=== PATIENT | female | born 1955 | race Caucasian/White ===

== ENCOUNTER 2018-11-07 20:17 | Inpatient (IN) ==
--- NOTE | 2018-11-07 20:49 | Podiatry Consult Note ---
Date of Encounter: 11/07/18 Time of Encounter: 21:00 Assessment and Plan (1) Gas gangrene Current visit: No Status: Acute I had a thorough review with the patient regarding her condition, my findings and recommendations for treatment. we discussed the infection present with gas gangrene, abscess and foreign body and emergent need for surgical intervention to try to salvage her foot. she will require incision and drainage, partial right foot amputation, removal of the foreign body. no guarantees were made that she would not lose more of her foot or her leg. she understood she will likely require return trips to the operating room and this is a staged procedure. nature of the procedure, risks vs benefits potential complications and consequences of surgery and her condition discussed at length including but not limited to infection, bleeding, swelling, numbness, tingling, heart attack, blood clot, pulmonary embolism, heart attack, sepsis, , loss of functionality, wound healing problems, persistent or worsening infection, loss of leg or more of foot, retained foreign body, need for further surgery etc. all questions were answered and the informed consent was signed. 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 (2) Foreign body (FB) in soft tissue Current visit: No Status: Acute plan for removal of foreign body. update tetanus (3) Abscess of right foot Current visit: No Status: Acute going for incision and drainage. History of Present Illness HPI: Ms. Rodríguez is a 63 year old diabetic female transferred from [facility] admitted to the hospitalist with gas forming right foot diabetic foot infection/gas gangrene/abscess and possible foreign body identified on CT. She does not know how long the wound on the right foot has been present. She does not know how long her foot has been red exactly but says a long time. She does not recall stepping on anything. She had drainage on her sock and her family made her come to the ER. She denies feeling like she had a fever, chills, nausea, vomiting, shortness of breath or chest pain. Patient has neuropathy at baseline and cannot feel her foot and says it does not hurt. Past Med Surg Social Fam HX - Past Medical History Medical history: arthritis, asthma, diabetes, hypertension Psychiatric history: no psych history - Social History Smoking Status: Never smoker Smokeless Tobacco Status: No Alcohol use: none Drug use: none Medications and Allergies Albuterol Sulfate [Albuterol Inhaler] 2 puff IH QID 2 Days inhaler 08/29/15 [Rx] Albuterol Sulfate [Proair Respiclick] 90 mcg IH PRN PRN 08/29/15 [History] Allopurinol [Zyloprim 100 MG] 100 mg PO TID 08/29/15 [History] Atorvastatin [Lipitor] 10 mg PO HS 08/29/15 [History] Furosemide [Lasix] 40 mg PO PRN PRN 08/29/15 [History] Gabapentin [Neurontin] 800 mg PO TID 08/29/15 [History] Lisinopril [Zestril] 10 mg PO DAILY 08/29/15 [History] metFORMIN [Glucophage] 500 mg PO TID 08/29/15 [History] Allergy/AdvReac Type Severity Reaction Status Date / Time No Known Allergies Allergy Verified 08/29/15 10:31 All Systems Reviewed: The remainder of the systems were reviewed and are negative - Constitutional Constitutional: no fever(s) - Cardiovascular Cardiovascular: no chest pain, no dyspnea - Respiratory Respiratory: no dyspnea - Musculoskeletal Musculoskeletal: numbness Physical Exam - Constitutional General appearance: no acute distress - Ankle & Foot Exam: well developed and nourished female in no acute distressm, AO x 3 right foot has moderate edema with purulent drainage expressed from the right lateral foot wound on the plantar foot with necrosis measuring 4.5cmx4.3cm. there is erythema and fluctuance. animal hair is present on the wound, foul odor, cyanosis of the 5th digit, there is crepitus present. no pain with calf squeeze. no ascending lymphangitis. erythema does extend past the ankle. CFT intact to digits, non-palpable DP pulse. no pain with calf squeeze. no pain with palpation of the lateral foot abscess area. non-labored respirations. CT-subq gas, abscess, foreign body Results - Labs Labs: All other labs normal.
[2018-11-07] MEDS ORDERED: Naloxone 0.4 MG/ML INJ IVP PRN (21:55)
[2018-11-07] MEDS ORDERED: OXYCODONE Oral CONC 10 MG/0.5 ML ORAL.SYG SL PRN ×2 (21:55)
[2018-11-07] MEDS ORDERED: *HR* Dextrose 50 % in Water (Syg) 50 ML SYRINGE IVP PRN (21:57)
[2018-11-07] MEDS ORDERED: D5% in Water 1,000 ML IVC PRN (21:57)
[2018-11-07] MEDS ORDERED: Dextrose Gel 15 GM/37.5 ML TUBE PO PRN ×2 (21:57)
--- NOTE | 2018-11-07 22:14 | Internal Med History&Physical ---
Date of Encounter: 11/07/18 Time of Encounter: 22:11 Internal Medicine - H&P: HPI Chief complaint: Foot wound Admitted From: Emergency Dept Plans for Post Hospital Care: Home History of present illness: Ms. Rodríguez is a 63 year old female with history of diabetes who presents with foot wound. Patient states that she has been feeling well recently and earlier today her significant other told her that she had a bad wound on her foot. Patient states that her feet are numb from diabetes and she did not know about this wound. She does not know how long is been there. She does not remember any specific injury. She states she feels well overall. She denies any fever, chills, leg pain, foot pain. Discussed with patient who wishes to be full code. Past Med Surg Social Fam HX - Past Medical History Medical history: arthritis, asthma, diabetes, hypertension Psychiatric history: no psych history - Past Surgical History Surgical History: non-contributory - Social History Smoking Status: Never smoker Smokeless Tobacco Status: No Alcohol use: none Drug use: none - Additional Family History Additional family history: Patient reports significant family history of diabetes in her mother and brother. Internal Medicine - H&P: Meds Albuterol Sulfate [Albuterol Inhaler] 2 puff IH QID 2 Days inhaler 08/29/15 [Rx] Albuterol Sulfate [Proair Respiclick] 90 mcg IH PRN PRN 08/29/15 [History] Allopurinol [Zyloprim 100 MG] 100 mg PO TID 08/29/15 [History] Atorvastatin [Lipitor] 10 mg PO HS 08/29/15 [History] Furosemide [Lasix] 40 mg PO PRN PRN 08/29/15 [History] Gabapentin [Neurontin] 800 mg PO TID 08/29/15 [History] Lisinopril [Zestril] 10 mg PO DAILY 08/29/15 [History] metFORMIN [Glucophage] 500 mg PO TID 08/29/15 [History] Allergy/AdvReac Type Severity Reaction Status Date / Time No Known Allergies Allergy Verified 08/29/15 10:31 All Systems PM: A 10-system review of systems was performed and is negative for pertinent findings except as documented above in the HPI. Review of systems: 10 point review of systems was obtained and negative other than stated below: - Constitutional Constitutional: no chills, no fever(s) - Cardiovascular Cardiovascular ROS IM: no chest pain - Respiratory Respiratory: no cough, no dyspnea - Gastrointestinal Gastrointestinal: no abdominal pain, no diarrhea, no nausea, no vomiting - Integumentary Integumentary IM: non-healing lesions, sores - Constitutional Vitals: Temp Pulse Resp BP Pulse Ox 99.4 F 108 15 104/46 92 11/07/18 22:03 11/07/18 22:03 11/07/18 22:03 11/07/18 22:03 11/07/18 22:03 General appearance: Present: A&O X 3, pleasant, no acute distress Exam: . - Head Head exam: Present: atraumatic, normal inspection, normocephalic - Eye Eye exam: Present: EOMI, PERRL - ENT ENT exam: Present: mucous membranes moist, normal oropharynx - Neck Neck exam general surgery: Present: full ROM. Absent: tenderness - Respiratory Respiratory exam: Present: CTAB. Absent: rales, rhonchi, wheezes - Cardiovascular Cardiovascular exam: Present: RRR. Absent: gallop, rubs, systolic murmur - GI/Abdominal GI/Abdominal exam: Present: normal bowel sounds, soft. Absent: distended, tenderness - Extremities Exam Extremities exam: Absent: calf tenderness, pedal edema, tenderness Additional comments: Right lower extremity has bulky dressing applied to right foot area dressing is clean dry and intact however followed her is noted through the dressing. She has mild erythema approximately 3 inches above the dressing that is nontender. No other areas of drainage is noted. - Neurological Exam Neurological exam: Present: alert, CN II-XII intact, oriented X3, no focal deficits - Assessment and Plan (1) Foot ulcer due to secondary DM Current Visit: No Status: Acute Assessment and plan: Patient has large foot wound secondary to diabetes which is been present for an unknown amount of time. CT performed showed diffuse subcutaneous edema throughout the soft tissues with ulceration and subcutaneous gas. No obvious evidence of osteomyelitis however infectious changes are noted to extend down to the bone of the fifth metatarsal head. Start vancomycin, Zosyn, as well as clindamycin for gas formation. Podiatry is been consulted and plan to take the patient to the OR this evening. (2) Cellulitis Current Visit: No Status: Acute Assessment and plan: Secondary to diabetic foot wound as above. Continue antibiotics. Qualifiers: Site of cellulitis: extremity Site of cellulitis of extremity: lower extre mity Laterality: right Qualified Code(s): L03.115 - Cellulitis of right lower limb (3) Gas gangrene Current Visit: No Status: Acute Assessment and plan: Secondary to diabetic foot wound as discussed above. Continue vancomycin, Zosyn, add clindamycin for gas formation and antitoxin effect. (4) Hypertension Current Visit: Yes Status: Acute Assessment and plan: Blood pressure stable at this time. Restart home medications unable to take by mouth meds. Qualifiers: Hypertension type: essential hypertension Qualified Code(s): I10 - Essential (primary) hypertension (5) Gout Current Visit: Yes Status: Acute Assessment and plan: No evidence of acute gout attack at this time. Restart allopurinol when able to take PO medications. Qualifiers: Gout site: unspecified site Gout etiology: unspecified cause Chronicity: unspecified Qualified Code(s): M10.9 - Gout, unspecified (6) DVT prophylaxis Current Visit: Yes Status: Acute Assessment and plan: Heparin 5000 units subcutaneous twice a day - Time Spent With Patient Total time spent is greater than 50% in coordination of care (as documented) at patient's floor/unit and/or counseling patient:
--- NOTE | 2018-11-07 22:28 | Anesthesia Evaluation PreOp ---
Date of Encounter: 11/07/18 Time of Encounter: 22:30 - Past History Planned Operation: Rt Foot Incision and Drainage Cardiac History: HTN, Hyperlipidemia, Other (Anemia chronic disease) Pulmonary History: Asthma SNACK STEWARD History: Other (Diabetic Neuropathy) Other Medical History: Diabetes Type II Anesthesia History: No Prior Anesthetic Complications : No Alcohol Use: none Drug use: none Medications and Allergies Albuterol Sulfate [Albuterol Inhaler] 2 puff IH QID 2 Days inhaler 08/29/15 [Rx] Albuterol Sulfate [Proair Respiclick] 90 mcg IH PRN PRN 08/29/15 [History] Allopurinol [Zyloprim 100 MG] 100 mg PO TID 08/29/15 [History] Atorvastatin [Lipitor] 10 mg PO HS 08/29/15 [History] Furosemide [Lasix] 40 mg PO PRN PRN 08/29/15 [History] Gabapentin [Neurontin] 800 mg PO TID 08/29/15 [History] Lisinopril [Zestril] 10 mg PO DAILY 08/29/15 [History] metFORMIN [Glucophage] 500 mg PO TID 08/29/15 [History] Allergy/AdvReac Type Severity Reaction Status Date / Time No Known Allergies Allergy Verified 08/29/15 10:31 - Meds/Allergy Pre-op Review Medications Reviewed: Yes Allergies Reviewed: Yes Beta Blockers on Current Med List: No Anesthesia Results - Labs Laboratory Tests 11/07/18 11/07/18 18:39 18:39 Hgb 8.9 L Hct 28.1 L Plt Count 343 Sodium 135 L Potassium 4.2 BUN 10 Creatinine 0.67 - Imaging EKG: report reviewed (Sinus Tach) Anesthesia Exam O2 Sat Height 1.65 m Weight 107 kg O2 Sat by Pulse Oximetry 92 Vital Signs Temp Pulse Resp BP Pulse Ox 99.4 F 108 15 104/46 92 11/07/18 22:03 11/07/18 22:03 11/07/18 22:03 11/07/18 22:03 11/07/18 22:03 Height: 5'5 Weight: 235 lbs NPO (# of Hours): MN Pain Scale: 0 - HEENT Pupil (Motor): Pupils equal, EOMI Mallampati: III Oral Opening: Less than or equal to 3 - SNACK STEWARD LOC: Oriented SNACK STEWARD Motor: Normal RUE, Normal LUE, Normal RLE, Normal LLE, Normal Face SNACK STEWARD Sensory: Normal: RUE, LUE, LLE, Face, Deficit: RLE (paresthesia) - Cardiac Rhythm: Regular Murmur: None JVD: No Carotid Bruit: No - Pulmonary Breath Sounds: bilateral Clear Respiratory Effort: Symmetrical Anesthesia Assess/Plan ASA Score: 3 (HTN DM Neuropathic) Level of consciousness: Cooperative, Oriented Anesthetic Plan: MAC Autologous Blood: No Monitoring Plan: Standard Monitors Recovery Plan: Other (Discussed MAC, possible GA, agrees to proceed)
[2018-11-07] MEDS ORDERED: *HR* FentaNYL (PF) 100 MCG/2 ML VIAL ONE (22:40)
[2018-11-07] MEDS ORDERED: *HR* Propofol 200 MG/20 ML VIAL IVP ONE (22:40)
[2018-11-07] MEDS ORDERED: Acetaminophen IV 1,000 MG/100 ML INFUS..BTL ONE (22:42)
[2018-11-07] MEDS ORDERED: Famotidine 20 MG/2 ML VIAL ONE (22:42)
[2018-11-07] MEDS ORDERED: Lidocaine/EPI 1:100k 1% 50 ML VIAL ONE (22:47)
[2018-11-07] MEDS ORDERED: Vancomycin 1,000 MG VIAL ONE ×2 (22:47→23:20)
--- NOTE | 2018-11-07 23:10 | Operative Note ---
Date of procedure: 11/07/18 Pre-op diagnosis: right foot gas gangrene, abscess, foreign body Post-op diagnosis: same Procedure: right partial 5th ray amputation, incision and drainage, removal of foreign body Implants: none Complications: none Anesthesia: MAC Local Anesthetics: 1% Lidocaine HCL SubQ (cc) Surgeon: Theodore Munoz Was there an parts room assistant present: No Estimated blood loss (cc): 20 Specimen: R foot soft tissue-micro, R 5th ray bone-micro and path, foreign body- path Condition: stable Disposition: PACU Procedure in Detail: Indications: 63-year-old female with diabetes and neuropathy transferred from [facility] with right foot gas gangrene and cellulitis past the ankle. Patient has abscess and foreign body plantar foot as well as plantar lateral foot ulceration (4.5cmx4.3cm) with purulent drainage. Patient being brought emergently to the operating room for the above procedures after discussing the nature of the procedure, risks versus benefits potential complications consequences of surgery and her condition at length. No guarantees were made that she would keep her limb and it was clearly explained to her that she is high risk for limb loss. It was also explained to the patient that she could require return trips to the operating room and may lose more of her foot or other toes due to the infection. All of her questions have been answered and informed consent was signed patient was taken from the preoperative holding area into the operating room placed on the operating room table in the supine position. 1% lidocaine plain was injected into the patient's right foot. Right foot was scrubbed prepped and draped in the usual sterile fashion following procedure began. Tourniquet was applied but not inflated during the entire procedure. Incision and drainage right foot. Attention was directed to the plantar lateral aspect of the patient's right foot where a #15 blade was used to make an incision through the eschar area and purulent drainage came flowing out of the plantar vault of the foot. The plantar eschar was excised, necrotic and devitalized tissue was present and excised. Soft tissue was sent to microbiology. Purulent drainage was expressed. The pulse levage with vancomycin was used to irrigate the area. Right partial fifth ray amputation. Purulent drainage was surrounding the fifth metatarsal bone and the fifth toe had cyanosis and dying tissue. The decision was made to proceed with partial fifth ray amputation and incision was made on the dorsal lateral aspect of the patient's right foot fourth full-thickness down to the level of the fifth metatarsal bone. The sagittal saw was used to cut the metatarsal bone and amputate the fifth ray partially and specimen of bone was sent to microbiology and pathology. The speciment sent to microbiology was the proximal most portion of the amputated metatarsal margin. There was bleeding bone at the end of the amputation site. The pulse lavage was utilized with vancomycin to irrigate the area. All bleeders were ligated using the Bovie. There was no further devitalized tissue felt to be present. No further purulence could be expressed. Removal of foreign body. With the fifth ray removed blunt dissection was carried out into the tissue of the interspace and foreign body was identified and excised. The foreign body had the appearance of popcorn kernel. Postoperative bandage included iodoform packing 4 x 4 gauze and ABD Kerlix and an Fish wrap. Patient tolerated the anesthesia and the procedure well escorted the recovery room vital signs stable and vascular status intact by capillary refill time less than 3 seconds to the remaining digits of the right foot. Patient will return to floor where she will continue IV antibiotics.
[2018-11-07] MEDS ORDERED: Lidocaine -MPF 2% 2 ML VIAL ONE (23:38)
[2018-11-07] MEDS ORDERED: Ondansetron 4 MG/2 ML VIAL ONE (23:50)
[2018-11-08] MEDS ORDERED: Piperacillin/Tazobactam 3.375 GM in 0.9 % Sodium Chloride Mini Bag 100 ML IVPB SCH
[2018-11-08] MEDS ORDERED: Clindamycin 900 MG/50 ML 900 MG/50 ML IV.SOLN IVPB SCH
[2018-11-08] MEDS ORDERED: Naloxone 0.4 MG/ML INJ IVP PRN (01:09)
[2018-11-08] MEDS ORDERED: Dextrose Gel 15 GM/37.5 ML TUBE PO PRN ×4 (01:09→04:33)
[2018-11-08] MEDS ORDERED: D5% in Water 1,000 ML IVC PRN ×2 (01:09→04:33)
[2018-11-08] MEDS ORDERED: OXYCODONE Oral CONC 10 MG/0.5 ML ORAL.SYG SL PRN (01:09)
[2018-11-08] MEDS ORDERED: *HR* Dextrose 50 % in Water (Syg) 50 ML SYRINGE IVP PRN ×2 (01:09→04:33)
[2018-11-08] MEDS ORDERED: Insulin LISPRO 300 UNITS/3 ML VIAL SQ SCH ×2 (06:00)
[2018-11-08] MEDS: *HR* Heparin 5,000 UNIT/ML VIAL SQ SCH ×2 (06:00→18:13)
[2018-11-08] MEDS ORDERED: *HR* Heparin 5,000 UNIT/ML VIAL SQ SCH (06:00)
[2018-11-08 06:42] LABS: Basophils % 0.3 %; Eosinophils # 0.1 K/mcL (0.0-0.6); Eosinophils % 1.6 %; Hematocrit 27.9 % (35.3-44.9); Hemoglobin 8.3 g/dL (11.5-15.4); Immature Granulocytes % 1.6 % (0-4); Lymphocytes # 1.5 K/mcL (0.6-4.6); Lymphocytes % 20.3 %; Mean Corpuscular HGB Conc 29.7 g/dL (31.6-35.5); Mean Corpuscular Hemoglobin 24.6 pg (28.0-33.3); Mean Corpuscular Volume 82.8 fL (83.0-100.0); Mean Platelet Volume 9.4 fL (9.4-12.4); Monocytes # 0.5 K/mcL (0.0-1.3); Monocytes % 6.8 %; Neutrophils # 5.1 K/mcL (1.6-8.9); Platelet Count 320 K/mcL (140-400); Red Blood Count 3.37 M/mcL (3.82-4.97); Red Cell Distribution Width 15.7 % (11.5-14.5); Segmented Neutrophils % 69.4 %; White Blood Count 7.3 K/mcL (4.3-11.1)
[2018-11-08 07:00] LABS: BUN/Creatinine Ratio 15 (6-26); Blood Urea Nitrogen 8 mg/dL (8-23); Calcium 7.8 mg/dL (8.6-10.3); Carbon Dioxide 27 mEq/L (23-29); Chloride 103 mEq/L (98-107); Glucose 158 mg/dL (70-105); Magnesium 1.5 mg/dL (1.6-2.6); Osmolality,Calculated 282 (280-300); Sodium 135 mEq/L (136-145); eGFR For African Americans > 60 (> 60); eGFR For Non-African Americans > 60 (> 60)
[2018-11-08 07:16] LABS: Platelet Estimate Normal (Normal); Reactive Lymphocytes Present (Not Present)
[2018-11-08] MEDS: Insulin LISPRO 300 UNITS/3 ML VIAL SQ SCH ×4 (09:06→21:40)
--- NOTE | 2018-11-08 09:07 | Internal Med Progress Note ---
Hospitalist Progress Note - Encounter Date of Encounter: 11/08/18 Time of Encounter: 09:06 - Subjective Interval History: Pt states her surgery last night went well, doesn't think there were any problems and she's not having significant pain today. No N/V/D, no CP or SOB. Appetite is good. Asking how long she'll be in hospital. - Exam Vitals: Temp Pulse Resp BP Pulse Ox 98.1 F 104 19 112/64 90 11/08/18 07:14 11/08/18 07:14 11/08/18 07:14 11/08/18 07:14 11/08/18 07:14 Exam: General: NAD, good eye contact, chronically ill appearing, obese Thoracic: Normal breath sounds b/l, no wheezing or crackles Cardio: Normal S1 and S2, regular rate and rhythm Abdomen: Soft, nontender, nondistended. Extremities: Warm, well perfused. Legs large but without edema. R foot extensively bandaged Neuro: Awake, fully oriented. Speech fluent - Summary of Assessment and Plan Summary of Assessment and Plan: Sheryl Rodríguez is a 63 F w hx DM2 c/b severe neuropathy, HTN, gout, obesity, who p/w R foot wound of unknown extent or duration, found on imaging to has gas bubbles, and taken by podiatry for debridement which revealed pus down to the bone, consistent with diabetic foot ulcer complicated by cellulitis, gas gangrene, and osteomyelitis. Diabetic foot ulcer c/b cellulitis, gas gangrene, and osteomyelitis: s/p partial 5th toe amputation on 11/[address] Munoz - Podiatry following, appreciate co-management - ID consult - plan for midline tomorrow if blood cultures negative - follow up intra-op cultures - continue empiric vanc, zosyn, and clinda DM2: uncontrolled, holding orals, use basal and SSI Peripheral neuropathy: 2/2 DM2, home gabapentin 800 tid HTN: home lisinopril 10, lasix 40 prn Gout: home allopurinol 100 Obesity: BMI 39 PPx: sqh FEN: ADA, no MIVF Lines: PIV but will likely need midline Consults: Podiatry, ID Code: Full Dispo: patient requires inpatient eval and management at this time. Anticipate 3-4 days. States strong preference for home health for IV abx rather than SNF Internal Medicine: Result - Labs CBC & Chem 7: 11/08/18 06:22 11/08/18 06:22 Labs: Short CBC 11/08/18 Range/Units 06:22 WBC 7.3 (4.3-11.1) K/mcL Hgb 8.3 L (11.5-15.4) g/dL Hct 27.9 L (35.3-44.9) % Plt Count 320 (140-400) K/mcL Neutrophils # 5.1 (1.6-8.9) K/mcL BMP 11/08/18 06:22 Sodium 135 L Potassium 4.0 Chloride 103 Carbon Dioxide 27 BUN 8 Creatinine 0.53 L Glucose 158 H Calcium 7.8 L Consult Discharge Plan - Plan Referrals: NONE,PCP [Primary Care Provider] -
[2018-11-08] MEDS: Piperacillin/Tazobactam 3.375 GM in 0.9 % Sodium Chloride Mini Bag 100 ML IVPB SCH ×2 (09:08→15:54)
[2018-11-08] MEDS: Clindamycin 900 MG/50 ML 900 MG/50 ML IV.SOLN IVPB SCH ×2 (09:09→15:53)
--- NOTE | 2018-11-08 15:27 | Infectious Disease Consult ---
Infectious Disease-Consult - Encounter Date/Time Date of Encounter: 11/08/18 Time of Encounter: 15:11 - Data of Consult Patient: new to practice Reason for consult: Osteomyelitis Consult date: 11/08/18 Requesting Physician: Nemesio Moss Primary Care Provider: PCP NONE - HPI HPI: Patient is a 63-year-old woman who presented to [facility] on 11/07/2018 as a transfer from [facility] for gas gangrene and foreign body in the soft tissue. We are consulted today for osteomyelitis and antibiotic recommendations. Patient is a 63-year-old woman who is diabetic for over 15 years [id number] presented to outside hospital for wound on her right foot. Patient does not know how she got the wound. Denies any trauma. Denies any animal bites. Denies any insect bite. She noted that she days prior to admis eleanor and it was getting more sore and painful. Patient denied any fevers or chills. Denies any night sweats. Patient does have neuropathy. Patient was evaluated at the outside facility and transferred to [facility] for evaluation workup. Since admission patient has been afebrile. Tachycardic. No tachypnea. Presenting labs revealed normal WBC with normal differential. ESR over 120. BUN 10 creatinine 0.67 and the left acid of 1.1. CT of the foot revealed diffuse subcutaneous edema throughout the treatment soft tissue with ulceration along the plantar and lateral aspect of the foot distally with associated subcutaneous gas extending along the plantar and lateral soft tissue involving the soft tissue of the fifth toe compatible with soft tissue gas. No well- circumscribed drainable collection identified within limits of this exam. A radiopaque density noted along the plantar aspect of the foot measuring 5.5 mm suggesting small foreign body. No definite ostial lysis or suspicious pe riosteal reaction did [address] evidence of osteomyelitis. Patient was taken to surgery by Dr. Santosh wong where she underwent right partial fifth ray amputation, incision and drainage and removal of foreign body. Intra-Op note reveals purulent drainage came flowing out of the plantar vault of the foot. Necrotic and deep vitalized tissue was present and exercise. Intra-Op cultures pending but Gram stain is showing many gram-positive cocci. Patient was started on vancomycin and Zosyn and clindamycin. We were asked to evaluate the patient's make further recommendations. Currently patient sitting up in the bed. She was eating. Denies any complaint. No headache no chest pain or shortness of breath no nausea no vomiting no diarrhea. No urinary symptoms. - ROS Review of Systems: 10 point review of systems done, negative other for what is mentioned in history of present illness - Results CBC & Chem 7: 11/08/18 06:22 11/08/18 06:22 - Exam Vitals: Temp Pulse Resp BP Pulse Ox 99.2 F 99 16 108/70 95 11/08/18 11:22 11/08/18 11:22 11/08/18 11:22 11/08/18 11:22 11/08/18 11:22 Exam: GENERAL: Laying in bed, appears comfortable. HEAD: Normocephalic atraumatic EYES: PERRLA, EOMI, no conjunctival hemorrhage, sclera anicteric ENT: Mucous membranes moist, no oral thrush. Patient has no teeth and is not wearing dentures NECK: Supple. No meningeal signs. No masses LUNGS: Chest expanding symmetrically. Lungs sounds audible both lung pablo. No wheezing, no rhonchi CV: RRR, S1S2, ABDOMEN: Soft, nontender, nondistended. Bowel sounds audible BACK: No CVA tenderness. Normal inspection. No tenderness over the spine EXTREMITY: Adequate perfusion. No joint effusion. Right foot is surgically wrapped SKIN: Normal color. No rash. NEURO: Awake alert oriented 3. No obvious focal deficit PSYCH: Calm and appropriate. No agitation. Albuterol Sulfate [Albuterol Inhaler] 2 puff IH QID 2 Days inhaler 08/29/15 [Rx] Albuterol Sulfate [Proair Respiclick] 90 mcg IH PRN PRN 08/29/15 [History] Allopurinol [Zyloprim 100 MG] 100 mg PO TID 08/29/15 [History] Atorvastatin [Lipitor] 10 mg PO HS 08/29/15 [History] Furosemide [Lasix] 40 mg PO PRN PRN 08/29/15 [History] Gabapentin [Neurontin] 800 mg PO TID 08/29/15 [History] Lisinopril [Zestril] 10 mg PO DAILY 08/29/15 [History] metFORMIN [Glucophage] 500 mg PO TID 08/29/15 [History] Allergy/AdvReac Type Severity Reaction Status Date / Time No Known Allergies Allergy Verified 08/29/15 10:31 - Assessment and Plan (1) Gas gangrene Current Visit: No Status: Acute CT foot 11/07/2018 reveals right subcutaneous gas extending along the plantar lateral soft tissue 11/07/2018: Status post right partial fifth ray amputation, incision and drainage and removal of foreign body Intra-Op there was a lot of purulence devitalized tissue and necrotic tissue Intra-Op cultures pending Patient was started on vancomycin, Zosyn and clindamycin Continue current antibiotic regimen for now. If there is no group A streptococcus I we will de-escalate to just Vanco and Zosyn tomorrow and hopefully tailor antibiotics accordingly after that Monitor kidney function closely Monitor for adverse reaction Goal vancomycin trough 10-15 SNOMED Code(s): 82090369 (2) Diabetes mellitus type 2 in obese Current Visit: Yes Status: Acute SNOMED Code(s): 97900331 (3) Cellulitis Current Visit: No Status: Acute Qualifiers: Site of cellulitis: extremity Site of cellulitis of extremity: lower extremity Laterality: right Qualified Code(s): L03.115 - Cellulitis of right lower limb SNOMED Code(s): 931295024 (4) Foot ulcer due to secondary DM Current Visit: No Status: Acute SNOMED Code(s): 1983577 (5) Foreign body (FB) in soft tissue Current Visit: No Status: Acute SNOMED Code(s): 614284600, 229750166 (6) Abscess of right foot Current Visit: No Status: Acute SNOMED Code(s): 89300359148414292 Past Med Surg Social Fam HX - Past Medical History Medical history: arthritis, asthma, diabetes, hypertension Psychiatric history: no psych history - Past Surgical History Surgical History: non-contributory - Social History Smoking Status: Never smoker Smokeless Tobacco Status: No Alcohol use: none Drug use: none Consult Discharge Plan - Plan Referrals: NONE,PCP [Primary Care Provider] -
[2018-11-08] MEDS: OXYCODONE Oral CONC 10 MG/0.5 ML ORAL.SYG SL PRN ×2 (15:53→21:52)
[2018-11-08] MEDS: Gabapentin 300 MG CAPSULE PO SCH ×2 (15:54→21:52)
--- NOTE | 2018-11-08 17:55 | Electrocardiograph Report ---
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
[2018-11-09] MEDS: Piperacillin/Tazobactam 3.375 GM in 0.9 % Sodium Chloride Mini Bag 100 ML IVPB SCH ×3 (01:15→15:55)
[2018-11-09] MEDS: Clindamycin 900 MG/50 ML 900 MG/50 ML IV.SOLN IVPB SCH ×3 (01:16→15:54)
[2018-11-09 05:27] LABS: Hematocrit 27.4 % (35.3-44.9); Hemoglobin 8.1 g/dL (11.5-15.4); Mean Corpuscular HGB Conc 29.6 g/dL (31.6-35.5); Mean Corpuscular Hemoglobin 24.5 pg (28.0-33.3); Mean Platelet Volume 9.5 fL (9.4-12.4); Platelet Count 375 K/mcL (140-400); Red Cell Distribution Width 15.7 % (11.5-14.5); White Blood Count 8.3 K/mcL (4.3-11.1)
[2018-11-09 05:45] LABS: BUN/Creatinine Ratio 13 (6-26); Blood Urea Nitrogen 8 mg/dL (8-23); C-Reactive Protein 149 mg/L (Less than 10); Calcium 8.3 mg/dL (8.6-10.3); Carbon Dioxide 29 mEq/L (23-29); Chloride 100 mEq/L (98-107); Glucose 198 mg/dL (70-105); Magnesium 1.9 mg/dL (1.6-2.6); Osmolality,Calculated 286 (280-300); Potassium 4.3 mEq/L (3.5-5.1); Sodium 136 mEq/L (136-145); eGFR For African Americans > 60 (> 60); eGFR For Non-African Americans > 60 (> 60)
[2018-11-09] MEDS: *HR* Heparin 5,000 UNIT/ML VIAL SQ SCH ×2 (06:49→18:11)
[2018-11-09] MEDS: Gabapentin 300 MG CAPSULE PO SCH ×3 (09:30→20:40)
[2018-11-09] MEDS: Insulin LISPRO 300 UNITS/3 ML VIAL SQ SCH ×4 (09:33→20:40)
[2018-11-09] MEDS ORDERED: Aminoglycoside Consult 1 EACH MC ONE (09:52)
--- NOTE | 2018-11-09 11:11 | Internal Med Progress Note ---
Hospitalist Progress Note - Encounter Date of Encounter: 11/09/18 Time of Encounter: 11:04 - Subjective Interval History: Pt denies acute needs or concerns. Doing well overnight. Denies N/V/D, has decent appetite. - Exam Vitals: Temp Pulse Resp BP Pulse Ox 98.4 F 91 16 103/61 96 11/09/18 07:08 11/09/18 07:08 11/09/18 07:08 11/09/18 07:08 11/09/18 07:08 Exam: General: NAD, good eye contact, chronically ill appearing, obese Thoracic: Normal breath sounds b/l, no wheezing or crackles Cardio: Normal S1 and S2, regular rate and rhythm Abdomen: Soft, nontender Extremities: Warm, well perfused. Legs large but without edema. R foot extensively bandaged, c/d/i Neuro: Awake, fully oriented. Speech fluent - Summary of Assessment and Plan Summary of Assessment and Plan: Sheryl Rodríguez is a 63 F w hx DM2 c/b severe neuropathy, HTN, gout, obesity, who p/w R foot wound of unknown extent or duration, found on imaging to has gas bubbles, and taken by podiatry for debridement on 11/07 which revealed pus down to the bone, consistent with diabetic foot ulcer complicated by cellulitis, gas gangrene, and osteomyelitis. Diabetic foot ulcer c/b cellulitis, gas gangrene, and osteomyelitis: s/p partial 5th toe amputation on 11/[address] Munoz. Clinically doing well. - Podiatry following, appreciate co-management - ID consult, appreciate abx rec's - continue empiric vanc, zosyn, and clinda for now, can d/c clinda if no group A strep on cultures when GPCs speciate - follow up intra-op cultures - PICC DM2: uncontrolled, holding orals, use basal and SSI Peripheral neuropathy: 2/2 DM2, home gabapentin 800 tid HTN: home lisinopril 10, lasix 40 prn Gout: home allopurinol 100 Obesity: BMI 39 PPx: sqh FEN: ADA, no MIVF Lines: PIV but will request midline/PICC Consults: Podiatry, ID Code: Full Dispo: patient requires inpatient eval and management at this time. Anticipate here over weekend until cultures result and can set up home abx (states strong preference for home health for IV abx rather than SNF) Internal Medicine: Result - Labs CBC & Chem 7: 11/09/18 05:01 11/09/18 05:01 Labs: Short CBC 11/09/18 Range/Units 05:01 WBC 8.3 (4.3-11.1) K/mcL Hgb 8.1 L (11.5-15.4) g/dL Hct 27.4 L (35.3-44.9) % Plt Count 375 (140-400) K/mcL BMP 11/09/18 05:01 Sodium 136 Potassium 4.3 Chloride 100 Carbon Dioxide 29 BUN 8 Creatinine 0.62 Glucose 198 H Calcium 8.3 L Consult Discharge Plan - Plan Referrals: NONE,PCP [Primary Care Provider] -
--- NOTE | 2018-11-09 15:24 | Podiatry Progress Note ---
Date of Encounter: 11/09/18 Time of Encounter: 14:30 - Assessment and Plan (1) Abscess of right foot Current Visit: No Status: Acute Assessment: -Post op day #2 right partial 5th ray amputation, incision and drainage, removal of foreign body by Dr. Munoz on 11/07/2018 -WBC 8.3, afebrile -Non-palpable pulses, cap refill less than 3 seconds -Skin warm from tibia to toes -Movement of toes noted -Intra-op cultures preliminary Strep agalactiae (Group B) and Gram Negative Peyman -Receiving IV antibiotics, ID onboard Plan: -All packing removed and surgical wound flushed thoroughly with sterile normal saline -Painted wound and macerated tissue periwound with betadine -Macerated tissue covered with 4x4 dry gauze -Covered wound with adaptic -Wound vac placed with white granulofoam then black granulofoam, draped with tegaderm is usual fashion with window-pane dressing, bridged to dorsal medial aspect of foot. Tubing off loaded and secured with 4x4s, Kerlix, and ROBERTO. -Good seal noted and suction set at 150 mmHG. -Change wound vac Monday, Monday, and Monday -Nursing staff to call for any questions or concerns Subjective Interval history: Post op day #2 right partial 5th ray amputation, incision and drainage, removal of foreign body by Dr. Munoz on 11/07/2018 Upon my examination patient is sleeping and slow to arouse with verbal stimuli. Initially patient was confused to time and why she was in the hospital but became more alert and oriented during my examination. Patient denies any chest pain, shortness of breath, or calf pain. She denies any fever, chills, n/v/d. Objective - Vital Signs Vital Signs: Vital Signs Temp Pulse Resp BP Pulse Ox 11/09/18 11:12 99.2 F 92 16 100/58 94 11/09/18 07:08 98.4 F 91 16 103/61 96 11/09/18 03:25 97.9 F 101 16 121/71 94 11/08/18 20:12 98.3 F 100 16 92/54 92 11/08/18 16:46 99.0 F 95 19 115/69 92 Intake and Output 11/08/18 11/09/18 11/09/18 23:59 07:59 15:59 Intake Total 454 / 1454 440 / 980 540 / 980 Output Total 0 / 0 Balance 454 / 1434 440 / 980 540 / 980 Intake: IV Fluids 454 / 854 200 / 500 300 / 500 Cleocin Premix 900 MG/50 ML 900 100 / 150 50 / 150 mg In 50 ml @ 50 mls/hr IVPB Q8HR CORIN Rx#:[id number] Magnesium Sulfate 2 GM In 0.9 % 104 / 104 Sodium Chloride 100 ML @ 104 mls/hr IVPB Q1H CORIN Rx#: [id number] Zosyn 3.375 GM In 0.9 % Sodium 100 / 200 100 / 100 Chloride (Mini-Bag +) 100 ML @ 25 mls/hr IVPB Q8HR CORIN Rx#: [id number] Vancocin 1,500 MG In 0.9 % 250 / 500 250 / 250 Sodium Chloride 250 ML @ 167 mls/hr IVPB Q12H CORIN Rx#: [id number] Oral 240 / 480 240 / 480 Output: Urine 0 / 0 Other: Meal Breakfast Percent of Meal Consumed 100% # Voids 2 1 1 Blood Glucose* 186 203 169 - Exam Exam: Constitutional: Patient was slow to arouse but did return to baseline while I was in the room and no acute distress noted Vascular: 5th digit right foot amputated, non-palpable pulses, cap refill less than 3 seconds, no pain with calf squeeze Neurological: Absent protective sensation Dermatological: Surgical wound right lateral plantar aspect of foot with tendon exposed, no lymphangitis, mild expected post operative erythema noted periwound and maceration of tissue noted distal aspect of wound, no unexpected complications noted, no odor, serosanguineous drainage - - Lab Result Diagrams: 11/09/18 05:01 11/09/18 05:01 Labs: Abnormal lab results RBC 3.30 M/mcL (3.82-4.97) L 11/09/18 05:01 Hgb 8.1 g/dL (11.5-15.4) L 11/09/18 05:01 Hct 27.4 % (35.3-44.9) L 11/09/18 05:01 MCV 82.8 fL (83.0-100.0) L 11/08/18 06:22 MCH 24.5 pg (28.0-33.3) L 11/09/18 05:01 MCHC 29.6 g/dL (31.6-35.5) L 11/09/18 05:01 RDW 15.7 % (11.5-14.5) H 11/09/18 05:01 Present (Not Present) A 11/08/18 06:22 ESR >= 130 mm/hr (0-15) H 11/09/18 05:01 Sodium 135 mEq/L (136-145) L 11/08/18 06:22 0.53 mg/dL (0.60-1.20) L 11/08/18 06:22 Glucose 198 mg/dL (70-105) H 11/09/18 05:01 POC Glucose 169 mg/dL (70-99) H 11/09/18 11:17 Calcium 8.3 mg/dL (8.6-10.3) L 11/09/18 05:01 Magnesium 1.5 mg/dL (1.6-2.6) L 11/08/18 06:22 149 mg/L (Less than 10) H 11/09/18 05:01 Vancomycin Trough 12 mcg/mL (5-10) H 11/09/18 05:01 Microbiology, Last 48 Hours 11/08/18 00:15 Surgical Biopsy Culture - Preliminary Right Foot Strep agalactiae - (Group B) Gram Negative Peyman 11/08/18 00:15 Surgical Biopsy Culture - Preliminary Right Foot Gram Negative Peyman 11/08/18 00:17 Anaerobic Culture - Preliminary Right Foot Culture is incubating. 11/08/18 00:15 Anaerobic Culture - Preliminary Right Foot Culture is incubating. Consult Discharge Plan - Plan Referrals: NONE,PCP [Primary Care Provider] -
--- NOTE | 2018-11-09 16:05 | Infectious Disease Progress No ---
ID Progress Note Date of Encounter: 11/09/18 Time of Encounter: 16:03 - Subjective Subjective: Patient seen and examined. Appears comfortable lying in bed. Denies any headache. No chest pain or shortness of breath. No nausea no vomiting. No diarrhea. No urinary symptoms. Foot pain under control. Vital signs reviewed afebrile Labs noted WBC 8.3, creatinine 0.62 Cultures group B streptococcus and a gram-negative luis alfredo final ID pending - Objective CBC & Chem 7: 11/09/18 05:01 11/09/18 05:01 - Exam Vitals: Temp Pulse Resp BP Pulse Ox 98.8 F 97 16 126/72 95 11/09/18 15:36 11/09/18 15:36 11/09/18 15:36 11/09/18 15:36 11/09/18 15:36 Exam: GENERAL: Comfortable. Laying in bed NAD HEENT: CH[place], EOMI LUNGS: Good air sounds bilaterally, no wheezing or rhonchi CV: RRR, S1 S2 ABDOMEN: Soft, nontender, + bowel sounds EXT: Adequate perfusion. No edema. Right foot surgically bandaged. Unable to evaluate. I saw picture from podiatry NEURO: A&OX3; no focal deficit - Assessment and Plan (1) Gas gangrene Current Visit: No Status: Acute CT foot 11/07/2018 reveals right subcutaneous gas extending along the plantar lateral soft tissue 11/07/2018: Status post right partial fifth ray amputation, incision and drainage and removal of foreign body Intra-Op there was a lot of purulence devitalized tissue and necrotic tissue Intra-Op cultures pending Patient was started on vancomycin, Zosyn and clindamycin DC vancomycin and clindamycin. Continue Zosyn Monitor kidney function closely Monitor for adverse reaction Duration of treatment depends on the clinical picture SNOMED Code(s): 67401085 (2) Diabetes mellitus type 2 in obese Current Visit: Yes Status: Acute SNOMED Code(s): 48788852 (3) Cellulitis Current Visit: No Status: Acute Qualifiers: Site of cellulitis: extremity Site of cellulitis of extremity: lower extremity Laterality: right Qualified Code(s): L03.115 - Cellulitis of right lower limb SNOMED Code(s): 363868396 (4) Foot ulcer due to secondary DM Current Visit: No Status: Acute SNOMED Code(s): 9213353 (5) Foreign body (FB) in soft tissue Current Visit: No Status: Acute SNOMED Code(s): 574488530, 202481470 (6) Abscess of right foot Current Visit: No Status: Acute SNOMED Code(s): 29221850760031214 Consult Discharge Plan - Plan Referrals: NONE,PCP [Primary Care Provider] -
[2018-11-10] MEDS: Piperacillin/Tazobactam 3.375 GM in 0.9 % Sodium Chloride Mini Bag 100 ML IVPB SCH ×3 (00:05→16:34)
[2018-11-10] MEDS: *HR* Heparin 5,000 UNIT/ML VIAL SQ SCH ×2 (05:25→16:39)
[2018-11-10 07:58] LABS: Hematocrit 27.8 % (35.3-44.9); Hemoglobin 8.4 g/dL (11.5-15.4); Mean Corpuscular HGB Conc 30.2 g/dL (31.6-35.5); Mean Corpuscular Hemoglobin 24.3 pg (28.0-33.3); Mean Corpuscular Volume 80.3 fL (83.0-100.0); Mean Platelet Volume 9.7 fL (9.4-12.4); Platelet Count 427 K/mcL (140-400); Red Blood Count 3.46 M/mcL (3.82-4.97); Red Cell Distribution Width 15.8 % (11.5-14.5); White Blood Count 6.6 K/mcL (4.3-11.1)
[2018-11-10 08:15] LABS: BUN/Creatinine Ratio 13 (6-26); Blood Urea Nitrogen 7 mg/dL (8-23); Calcium 8.8 mg/dL (8.6-10.3); Carbon Dioxide 31 mEq/L (23-29); Chloride 102 mEq/L (98-107); Glucose 154 mg/dL (70-105); Osmolality,Calculated 283 (280-300); Potassium 4.6 mEq/L (3.5-5.1); Sodium 136 mEq/L (136-145); eGFR For African Americans > 60 (> 60); eGFR For Non-African Americans > 60 (> 60)
[2018-11-10] MEDS: Insulin LISPRO 300 UNITS/3 ML VIAL SQ SCH ×4 (08:46→20:29)
[2018-11-10] MEDS: Gabapentin 300 MG CAPSULE PO SCH ×3 (08:46→20:29)
--- NOTE | 2018-11-10 14:16 | Internal Med Progress Note ---
Hospitalist Progress Note - Encounter Date of Encounter: 11/10/18 Time of Encounter: 14:13 - Subjective Interval History: Patient is a 63 year old with gas gangrene in the right foot, status post debridement and amputation of the toe on 11/07. Seen and examined at the bedside sitting out of bed in the chair, denies new complaints, denies fever or chills. Has been hemodynamically stable in the past 24 hours. Cultures are noted and a preliminary growing Escherichia coli, streptococcal agalactaie - Exam Vitals: Temp Pulse Resp BP Pulse Ox 98.5 F 88 18 118/67 94 11/10/18 11:24 11/10/18 11:24 11/10/18 11:24 11/10/18 11:24 11/10/18 11:24 Exam: General: Sitting up in chair out of bed, not in any form of distress. Thoracic: Normal breath sounds b/l, no wheezing or crackles Cardio: Normal S1 and S2, regular rate and rhythm Abdomen: Soft, nontender Extremities: Warm, well perfused. Legs large but without edema. R foot wound dressing slightly soaked with serosanguineous fluid, wound vac in situ Neuro: Awake, fully oriented. Speech fluent, no focal deficits DVT Prophylaxis: Sq heparin - Summary of Assessment and Plan Summary of Assessment and Plan: Sheryl Rodríguez is a 63 F w hx DM2 c/b severe neuropathy, HTN, gout, obesity, who p/w R foot wound of unknown extent or duration, found on imaging to has gas bubbles, and taken by podiatry for debridement on 11/07 which revealed pus down to the bone, consistent with diabetic foot ulcer complicated by cellulitis, gas gangrene, and osteomyelitis. Resume all home meds today 11/10 Assessment/Plan #Diabetic foot ulcer wit cellulitis, gas gangrene, and osteomyelitis: -s/p partial 5th toe amputation on 11/[address] Munoz. Clinically doing well. - Podiatry following, appreciate co-management - ID consult, appreciate abx rec's - continue empiric zosyn only - duration of treatment pending ID confirmation #DM2: -uncontrolled, A1C 8.0 -holding oral medications -Continue basal insulin and sliding scale #Peripheral neuropathy: 2/2 DM2 -Continue home gabapentin 800 tid # Essential HTN: -Continue home lisinopril 10, lasix 40 prn #Gout: home allopurinol 100 #Obesity: BMI 39 Disposition plan: Home Health when duration of antibiotics is determined - Time Spent with Patient Total time spent is greater than 50% in coordination of care (as documented) at patient's floor/unit and/or counseling patient: Plan of Care Discussed with: patient Internal Medicine: Result - Labs CBC & Chem 7: 11/10/18 06:54 11/10/18 06:54 Labs: Short CBC 11/10/18 Range/Units 06:54 WBC 6.6 (4.3-11.1) K/mcL Hgb 8.4 L (11.5-15.4) g/dL Hct 27.8 L (35.3-44.9) % Plt Count 427 H (140-400) K/mcL BMP 11/10/18 06:54 Sodium 136 Potassium 4.6 Chloride 102 Carbon Dioxide 31 H BUN 7 L Creatinine 0.52 L Glucose 154 H Calcium 8.8 Consult Discharge Plan - Plan Referrals: NONE,PCP [Primary Care Provider] -
[2018-11-10] MEDS ORDERED: clonazePAM 0.5 MG TABLET PO PRN (14:20)
[2018-11-10] MEDS: Furosemide 20 MG TABLET PO SCH (16:39)
[2018-11-11] MEDS: Piperacillin/Tazobactam 3.375 GM in 0.9 % Sodium Chloride Mini Bag 100 ML IVPB SCH ×4 (00:07→23:24)
[2018-11-11] MEDS: *HR* Heparin 5,000 UNIT/ML VIAL SQ SCH ×2 (05:14→20:31)
[2018-11-11 07:37] LABS: Hematocrit 29.4 % (35.3-44.9); Hemoglobin 8.9 g/dL (11.5-15.4); Mean Corpuscular HGB Conc 30.3 g/dL (31.6-35.5); Mean Corpuscular Hemoglobin 24.7 pg (28.0-33.3); Mean Corpuscular Volume 81.7 fL (83.0-100.0); Mean Platelet Volume 9.6 fL (9.4-12.4); Platelet Count 499 K/mcL (140-400); Red Cell Distribution Width 15.6 % (11.5-14.5); White Blood Count 7.9 K/mcL (4.3-11.1)
[2018-11-11 07:56] LABS: BUN/Creatinine Ratio 16 (6-26); Blood Urea Nitrogen 11 mg/dL (8-23); Calcium 9.3 mg/dL (8.6-10.3); Carbon Dioxide 34 mEq/L (23-29); Chloride 99 mEq/L (98-107); Glucose 182 mg/dL (70-105); Osmolality,Calculated 288 (280-300); Potassium 4.7 mEq/L (3.5-5.1); Sodium 137 mEq/L (136-145); eGFR For African Americans > 60 (> 60); eGFR For Non-African Americans > 60 (> 60)
[2018-11-11] MEDS: Gabapentin 300 MG CAPSULE PO SCH ×3 (08:39→20:32)
[2018-11-11] MEDS: Furosemide 20 MG TABLET PO SCH (08:39)
[2018-11-11] MEDS: Insulin LISPRO 300 UNITS/3 ML VIAL SQ SCH ×4 (08:40→20:35)
[2018-11-11] MEDS: Tiotropium 18 MCG inhalation IH SCH (10:43)
--- NOTE | 2018-11-11 12:45 | Internal Med Progress Note ---
Hospitalist Progress Note - Encounter Date of Encounter: 11/11/18 Time of Encounter: 12:38 - Subjective Interval History: Patient is seen and examined at the bedside, no new events today overnight. Final cultures and sensitivities noted, see assessment and plan for details. - Exam Vitals: Temp Pulse Resp BP Pulse Ox 98.3 F 76 19 107/73 94 11/11/18 11:23 11/11/18 11:23 11/11/18 11:23 11/11/18 11:23 11/11/18 11:23 Exam: General: Sitting up in chair out of bed, not in any form of distress. Thoracic: Normal breath sounds b/l, no wheezing or crackles Cardio: Normal S1 and S2, regular rate and rhythm Abdomen: Soft, nontender Extremities: Warm, well perfused. Bilateral pitting edema to the ankles, left foot wound inspected, wound VAC in situ, status post fifth toe amputation, necrotic skin noted, distal pulses are present and equal bilaterally. Neuro: Awake, fully oriented. Speech fluent, no focal deficits DVT Prophylaxis: Sq heparin - Summary of Assessment and Plan Summary of Assessment and Plan: Sheryl Rodríguez is a 63 F w hx DM2 c/b severe neuropathy, HTN, gout, obesity, who p/w R foot wound of unknown extent or duration, found on imaging to has gas bubbles, and taken by podiatry for debridement on 11/07 which revealed pus down to the bone, consistent with diabetic foot ulcer complicated by cellulitis, gas gangrene, and osteomyelitis. Resume all home meds today 11/10 Assessment/Plan #Diabetic foot ulcer wit cellulitis, gas gangrene, and osteomyelitis: -s/p partial 5th toe amputation on 11/[address] Munoz. Clinically doing well. -Podiatry following, appreciate co-management -ID consulted, recommendations noted -Patient was initially on vancomycin and Zosyn, vancomycin discontinued by infectious diseases recommendations -Final culture reports noted for strep agalactiae, Proteus, Escherichia coli, Enterococcus faecalis, enterococcus avium, and Staphylococcus cohnii -Based on sensitivity pattern, add cipro po ro current regimen -PICC placement a.m -Duration of treatment pending ID confirmation #DM2: -uncontrolled, A1C 8.0 -holding oral medications -Continue basal insulin and sliding scale #Peripheral neuropathy: 2/2 DM2 -Continue home gabapentin 800 tid # Essential HTN: -Continue home lisinopril 10, lasix 40 prn #Gout: home allopurinol 100 #Obesity: BMI 39 Disposition plan: Home Health when duration of antibiotics is determined - Time Spent with Patient Total time spent is greater than 50% in coordination of care (as documented) at patient's floor/unit and/or counseling patient: Plan of Care Discussed with: patient Internal Medicine: Result - Labs CBC & Chem 7: 11/11/18 06:26 11/11/18 06:26 Labs: Short CBC 11/11/18 Range/Units 06:26 WBC 7.9 (4.3-11.1) K/mcL Hgb 8.9 L (11.5-15.4) g/dL Hct 29.4 L (35.3-44.9) % Plt Count 499 H (140-400) K/mcL BMP 11/11/18 06:26 Sodium 137 Potassium 4.7 Chloride 99 Carbon Dioxide 34 H BUN 11 Creatinine 0.67 Glucose 182 H Calcium 9.3 Consult Discharge Plan - Plan Referrals: NONE,PCP [Primary Care Provider] -
[2018-11-12] MEDS: *HR* Heparin 5,000 UNIT/ML VIAL SQ SCH ×2 (05:26→17:48)
[2018-11-12] MEDS: Tiotropium 18 MCG inhalation IH SCH (07:39)
[2018-11-12] MEDS: Insulin LISPRO 300 UNITS/3 ML VIAL SQ SCH ×4 (09:41→20:15)
[2018-11-12] MEDS: Piperacillin/Tazobactam 3.375 GM in 0.9 % Sodium Chloride Mini Bag 100 ML IVPB SCH ×3 (09:41→23:23)
[2018-11-12] MEDS: Gabapentin 300 MG CAPSULE PO SCH ×3 (09:42→20:13)
[2018-11-12] MEDS: Furosemide 20 MG TABLET PO SCH (09:43)
[2018-11-12] MEDS: Doxycycline 100 MG in 0.9 % Sodium Chloride Mini Bag 100 ML IVPB SCH ×2 (12:07→17:41)
--- NOTE | 2018-11-12 12:12 | Podiatry Progress Note ---
Date of Encounter: 11/12/18 Time of Encounter: 11:30 - Assessment and Plan (1) Foreign body (FB) in soft tissue Current Visit: No Status: Acute Path reports pending (2) Abscess of right foot Current Visit: No Status: Acute Assessment: -Post op day #5 right partial 5th ray amputation, incision and drainage, removal of foreign body by Dr. Munoz on 11/07/2018 -WBC 7.9, afebrile -Non-palpable pulses, cap refill less than 3 seconds -Skin warm from tibia to toes -Movement of toes noted -Intra-op cultures final Ecoli, Proteus H, Enterococcus F and A and group B strep. -Receiving IV antibiotics, ID onboard Plan: -Wound vac removed at bedside -Painted wound and macerated tissue periwound with betadine -Macerated tissue covered with 4x4 dry gauze -Covered wound with adaptic -Will leave off wound vac today due to profound maceration of tissue. Will plan to replace tomorrow once tissue has dried - Wound vac paperwork filled out and provided to SW - Pending ATB order from ID -SW setting up HHC -Good seal noted and suction set at 150 mmHG. -Change wound vac Monday, Monday, and Monday -Nursing staff to call for any questions or concerns - Will need post operative shoe to bedside prior to discharge (3) Diabetes mellitus type 2 in obese Current Visit: Yes Status: Acute Subjective Interval history: Post op day #5 right partial 5th ray amputation, incision and drainage, removal of foreign body by Dr. Munoz on 11/07/2018 Patient up to chair and then transferred to bed for assessment. Patient tearful and wanting to go home. alert and oriented during my examination. Patient denies any chest pain, shortness of breath, or calf pain. She denies any fever, chills, n/v/d. SW at bedside, discussing HHC. Patient minimally interactive with health care decision making. States she is fine with whatever HHC. Objective - Vital Signs Vital Signs: Vital Signs Temp Pulse Resp BP Pulse Ox 11/12/18 10:09 97.7 F 99 16 131/76 96 11/12/18 07:39 16 91 11/12/18 06:46 98.0 F 78 16 120/68 93 11/12/18 04:48 97.9 F 95 16 130/79 94 11/12/18 00:01 98.1 F 104 16 135/78 91 11/11/18 20:00 98.5 F 98 15 119/71 95 11/11/18 15:14 98.1 F 92 16 142/83 92 Intake and Output 11/11/18 11/12/18 11/12/18 23:59 07:59 15:59 Intake Total 340 / 1740 0 / 240 240 / 240 Output Total 60 / 60 0 / 50 50 / 50 Balance 280 / 1680 0 / 190 190 / 190 Intake: IV Fluids 100 / 300 Zosyn 3.375 GM In 0.9 % Sodium 100 / 300 Chloride (Mini-Bag +) 100 ML @ 25 mls/hr IVPB Q8HR [facility] Rx#: [id number] Oral 240 / 1440 0 / 240 240 / 240 Output: Urine 0 / 0 Wound Drainage 60 / 60 50 / 50 Right Foot 60 / 60 50 / 50 Other: Meal Dinner Breakfast Percent of Meal Consumed 100% 90% Stool Size Small Stool Consistency soft Stool Color Brown # Voids 1 1 1 # Urine Diapers 2 # Bowel Movements 1 Blood Glucose* 240 174 - Exam Exam: Constitutional: awake, alert and oriented. Tearful Vascular: 5th digit right foot amputated, non-palpable pulses, cap refill less than 3 seconds, no pain with calf squeeze Neurological: Absent protective sensation Dermatological: Surgical wound right lateral plantar aspect of foot with tendon exposed, no lymphangitis, mild expected post operative erythema noted periwound and a large amount of maceration of tissue noted distal aspect of wound, plantar aspect of foot, medial aspect of foot and dorsal aspect of foot. mild odor related to maceration. serosanguineous drainage. - Lab Result Diagrams: 11/11/18 06:26 11/11/18 06:26 Labs: Abnormal lab results RBC 3.60 M/mcL (3.82-4.97) L 11/11/18 06:26 Hgb 8.9 g/dL (11.5-15.4) L 11/11/18 06:26 Hct 29.4 % (35.3-44.9) L 11/11/18 06:26 MCV 81.7 fL (83.0-100.0) L 11/11/18 06:26 MCH 24.7 pg (28.0-33.3) L 11/11/18 06:26 MCHC 30.3 g/dL (31.6-35.5) L 11/11/18 06:26 RDW 15.6 % (11.5-14.5) H 11/11/18 06:26 Plt Count 499 K/mcL (140-400) H 11/11/18 06:26 Present (Not Present) A 11/08/18 06:22 ESR >= 130 mm/hr (0-15) H 11/09/18 05:01 Sodium 135 mEq/L (136-145) L 11/08/18 06:22 Carbon Dioxide 34 mEq/L (23-29) H 11/11/18 06:26 BUN 7 mg/dL (8-23) L 11/10/18 06:54 0.52 mg/dL (0.60-1.20) L 11/10/18 06:54 Glucose 182 mg/dL (70-105) H 11/11/18 06:26 POC Glucose 174 mg/dL (70-99) H 11/12/18 06:59 Calcium 8.3 mg/dL (8.6-10.3) L 11/09/18 05:01 Magnesium 1.5 mg/dL (1.6-2.6) L 11/08/18 06:22 149 mg/L (Less than 10) H 11/09/18 05:01 Vancomycin Trough 12 mcg/mL (5-10) H 11/09/18 05:01 Microbiology, Last 48 Hours 11/08/18 00:17 Anaerobic Culture - Preliminary Right Foot At this time, no anaerobic growth is present. The culture will be finalized after 5 days of incubation. 11/08/18 00:15 Surgical Biopsy Culture - Final Right Foot Escherichia coli Proteus hauseri Enterococcus faecalis Enterococcus avium Strep agalactiae - (Group B) Methicillin Resistant S.aureus 11/08/18 00:15 Surgical Biopsy Culture - Final Right Foot Strep agalactiae - (Group B) Proteus hauseri Escherichia coli Enterococcus faecalis Enterococcus avium Staphylococcus cohnii Consult Discharge Plan - Plan Referrals: NONE,PCP [Primary Care Provider] -
--- NOTE | 2018-11-12 12:50 | Internal Med Progress Note ---
Hospitalist Progress Note - Encounter Date of Encounter: 11/12/18 Time of Encounter: 12:47 - Subjective Interval History: Seen and examined at the bedside Patient has no new complains, no overnight events She is itchy to go home-educated on need for determination of duration of therapy and arrangement of home infusion vs placement Wound cultures reviewed - Exam Vitals: Temp Pulse Resp BP Pulse Ox 97.7 F 99 16 131/76 96 11/12/18 10:11/12/18 10:11/12/18 10:11/12/18 10:11/12/18 10:09 Exam: General: Sitting up in bed, not in any form of distress. Thoracic: Normal breath sounds b/l, no wheezing or crackles Cardio: Normal S1 and S2, regular rate and rhythm Abdomen: Soft, non-tender Extremities: Warm, well perfused. Bilateral pitting edema to the ankles, left foot wound inspected, wound VAC in situ, status post fifth toe amputation, necrotic skin noted, distal pulses are present and equal bilaterally. Neuro: Awake, fully oriented. Speech fluent, no focal deficits DVT Prophylaxis: Sq heparin - Summary of Assessment and Plan Summary of Assessment and Plan: Sheryl Rodríguez is a 63 F w hx DM2 c/b severe neuropathy, HTN, gout, obesity, who p/w R foot wound of unknown extent or duration, found on imaging to has gas bubbles, and taken by podiatry for debridement on 11/07 which revealed pus down to the bone, consistent with diabetic foot ulcer complicated by cellulitis, gas gangrene, and osteomyelitis. Resume all home meds today 11/10 Assessment/Plan #Diabetic foot ulcer wit cellulitis, gas gangrene, and osteomyelitis: -s/p partial 5th toe amputation on 11/[address] Munoz. Clinically doing well. -Podiatry following, appreciate co-management -ID consulted, recommendations noted -Patient was initially on vancomycin and Zosyn, vancomycin discontinued by infec tious diseases recommendations -Final culture reports noted for strep agalactiae, Proteus, Escherichia coli, Enterococcus faecalis, enterococcus avium, and Staphylococcus cohnii -Based on sensitivity pattern, added cipro po ro current regimen 11/11 -MRSA in wound culture today 11/12, discontinued cipro, added doxy pending ID evaluation -PICC placement a.m -Duration of treatment pending ID confirmation #DM2: -uncontrolled, A1C 8.0 -holding oral medications -Continue basal insulin and sliding scale #Peripheral neuropathy: 2/2 DM2 -Continue home gabapentin 800 tid # Essential HTN: -Continue home lisinopril 10, lasix 40 CORIN #Gout: home allopurinol 100 #Obesity: BMI 39 Disposition plan: Home Health when duration of antibiotics is determined - Time Spent with Patient Total time spent is greater than 50% in coordination of care (as documented) at patient's floor/unit and/or counseling patient: Plan of Care Discussed with: patient Internal Medicine: Result - Labs CBC & Chem 7: 11/11/18 06:26 11/11/18 06:26 Consult Discharge Plan - Plan Referrals: NONE,PCP [Primary Care Provider] -
--- NOTE | 2018-11-12 14:44 | Infectious Disease Progress No ---
ID Progress Note Date of Encounter: 11/12/18 Time of Encounter: 13:45 - Subjective Subjective: Patient seen and examined. No acute events noted overnight. Patient states she feels well and wants to go home. Denies any fevers, chills, or rigors. Denies chest pain, shortness of breath, or cough. Denies nausea, vomiting, diarrhea, or constipation. She does report some loose stool. Denies abdominal pain or urinary complaints. Denies oral thrush or skin rashes. - Objective CBC & Chem 7: 11/11/18 06:26 11/11/18 06:26 - Exam Vitals: Temp Pulse Resp BP Pulse Ox 97.9 F 95 16 126/71 90 11/12/18 13:49 11/12/18 13:49 11/12/18 13:49 11/12/18 13:49 11/12/18 13:49 Exam: Head: Atraumatic, normal inspection, normocephalic. Eye: EOMI, PERRLA, no scleral icterus noted. ENT: Mucous membranes moist. No odontogenic infection noted. Neck: Normal inspection, no meningismus. Respiratory: Clear to auscultation. No rales, respiratory distress, rhonchi, or wheezes noted. Cardiovascular: Regular rate and rhythm, S1 and S2 audible. No murmurs, rubs, or gallops. GI: Soft, nondistended, normal bowel sounds. Extremities:No joint swelling, pedal edema, or tenderness noted. Right foot dressing C/D/I. Back: Normal inspection. No vertebral tenderness noted. Neurological: Alert, oriented 3, no focal deficits. Psychiatric: normal affect, normal mood. Skin: Dry, intact, warm. Normal color. No rashes. - Assessment and Plan (1) Gas gangrene Current Visit: No Status: Acute Location: Right foot. Likely infectious, secondary to diabetic foot ulcer. Causative organism: S. cohnii, MRSA, GBS, P. hauseri, E. coli, E. faecalis, E. avium. CT foot 11/07/2018 reveals right subcutaneous gas extending along the plantar lateral soft tissue. Podiatry consulted. Status post right partial fifth ray amputation, incision and drainage and removal of foreign body 11/07/18. Operative note reviewed. It appears there was a lot of purulence devitalized tissue and necrotic tissue. Intra-op 5th MTH cultures positive for GBS, P. hauseri, E. coli, E. faecalis, E. avium, and S. cohnii. Intra-op 5th proximal phalanx cultures positive for E. coli, P. hauseri, E. faecalis, E. avium, GBS, and MRSA. Currently on doxycycline and Zosyn. SNOMED Code(s): 75337847 (2) Cellulitis Current Visit: No Status: Acute Location: Right foot. Likely secondary to DFU and gangrene. Causative organism: polymicrobial. Improved per patient report. Currently on doxycycline and Zosyn. Qualifiers: Site of cellulitis: extremity Site of cellulitis of extremity: lower extremity Laterality: right Qualified Code(s): L03.115 - Cellulitis of right lower limb SNOMED Code(s): 508472659 (3) Foreign body (FB) in soft tissue Current Visit: No Status: Acute Location: Right foot. Status post removal 11/07/18. SNOMED Code(s): 692045609, 169514942 (4) Foot ulcer due to secondary DM Current Visit: No Status: Acute Podiatry consulted and following. SNOMED Code(s): 5102422 (5) Hypertension Current Visit: Yes Status: Chronic Qualifiers: Hypertension type: essential hypertension Qualified Code(s): I10 - Essential (primary) hypertension SNOMED Code(s): 56561510 (6) Gout Current Visit: Yes Status: Chronic Qualifiers: Gout site: unspecified site Gout etiology: unspecified cause Chronicity: unspecified Qualified Code(s): M10.9 - Gout, unspecified SNOMED Code(s): 39013772 (7) Diabetes mellitus type 2 in obese Current Visit: Yes Status: Acute Recommend aggressive glucose monitoring and control to promote wound healing and prevent re-infection. Management per the primary team. SNOMED Code(s): 58254497 - Recommendations Recommendations: Re-check CBC, BMP, ESR, and CRP in the AM. Await anaerobic cultures to finalize. Wound care and activity per the Podiatry team. Discontinue doxycycline and Zosyn. Start Vancomycin IV. Pharmacy to dose. Goal trough ~15. Start cefepime 2 grams IV Q12H. Start flagyl 500mg PO TID. Duration of treatment depends on the clinical picture, but likely 6 weeks. Monitor renal function and for drug toxicity and dose-adjust antibiotics. patient financial services specialist to assist with discharge planning. Consult VAT to switch midline out for a PICC line. Will need weekly CBC, BUN/Cr, ESR, CRP, Vanc trough. Will need weekly PICC care per protocol. Follow up with ID 11/27/18 at 1440. Consult Discharge Plan - Plan Referrals: NONE,PCP [Primary Care Provider] - Amarilis Hudson, LABORATORY PHLEBOTOMIST [Advanced Practice Nurse] - 11/27/18 2:40 pm - Attending Attestation I have personally performed a face to face evaluation on this patient. I have reviewed and agree with the care plan. History and Exam by me shows: Assessment and plan: Gas gangrene Cellulitis Foreign body in the soft tissue Foot ulcer due to secondary diabetes mellitus Hypertension Gout Diabetes mellitus type 2 and obese BMI 39 Recommendations Re-check CBC, BMP, ESR, and CRP in the AM. Await anaerobic cultures to finalize. Wound care and activity per the Podiatry team. Discontinue doxycycline and Zosyn. Start Vancomycin IV. Pharmacy to dose. Goal trough ~15. Start cefepime 2 grams IV Q12H. Start flagyl 500mg PO TID. Duration of treatment depends on the clinical picture, but likely 6 weeks. Monitor renal function and for drug toxicity and dose-adjust antibiotics. patient financial services specialist to assist with discharge planning. Consult VAT to switch midline out for a PICC line. Will need weekly CBC, BUN/Cr, ESR, CRP, Vanc trough. Will need weekly PICC care per protocol. Follow up with ID 11/27/18 at 1440.
[2018-11-12] MEDS ORDERED: Insulin DETEMIR 100 UNIT/ML X5UNITS SQ SCH (21:00)
[2018-11-13] MEDS: Doxycycline 100 MG in 0.9 % Sodium Chloride Mini Bag 100 ML IVPB SCH (05:39)
[2018-11-13] MEDS: *HR* Heparin 5,000 UNIT/ML VIAL SQ SCH ×2 (05:39→17:26)
[2018-11-13 06:40] LABS: Hematocrit 33.8 % (35.3-44.9); Mean Corpuscular HGB Conc 29.6 g/dL (31.6-35.5); Mean Corpuscular Hemoglobin 23.9 pg (28.0-33.3); Mean Corpuscular Volume 80.9 fL (83.0-100.0); Mean Platelet Volume 9.2 fL (9.4-12.4); Platelet Count 565 K/mcL (140-400); Red Blood Count 4.18 M/mcL (3.82-4.97); Red Cell Distribution Width 15.8 % (11.5-14.5)
[2018-11-13 07:01] LABS: Alanine Aminotransferase 16 Units/L (7-52); Albumin 3.4 g/dL (3.5-5.7); Albumin/Globulin Ratio 0.9 (1.1-2.2); Alkaline Phosphatase 86 Units/L (34-104); Aspartate Amino Transferase 14 Units/L (13-39); BUN/Creatinine Ratio 29 (6-26); Bilirubin,Direct 0.1 mg/dL (0.0-0.2); Bilirubin,Indirect 0.1 mg/dL (0.0-1.2); Bilirubin,Total 0.2 mg/dL (0.3-1.0); Blood Urea Nitrogen 24 mg/dL (8-23); Calcium 9.6 mg/dL (8.6-10.3); Carbon Dioxide 27 mEq/L (23-29); Chloride 98 mEq/L (98-107); Globulin 3.6 g/dL (2.4-3.5); Glucose 219 mg/dL (70-105); Magnesium 1.2 mg/dL (1.6-2.6); Osmolality,Calculated 291 (280-300); Potassium 4.8 mEq/L (3.5-5.1); Sodium 135 mEq/L (136-145); eGFR For African Americans > 60 (> 60); eGFR For Non-African Americans > 60 (> 60)
[2018-11-13] MEDS: Tiotropium 18 MCG inhalation IH SCH (07:28)
--- NOTE | 2018-11-13 08:13 | Discharge Summary ---
- NOTES TO OUTPATIENT PROVIDER Notes to Outpatient Provider: Osteo R foot, on Cefepime/Vanc via PICC x6w. Due to transient SANTA and while on Vanc, stopped lisinopril, reduced metformin and gabapentin. Date of Encounter: 11/16/18 Time of Encounter: 08:11 Hospital course: Dear Doctors, I recently had the opportunity to care for this patient during their recent hospital stay at [facility]. Sheryl Rodríguez is a 63 F w hx DM2 c/b severe neuropathy, HTN, gout, obesity, who on 11/07 presented with R foot wound of unknown extent or duration. In the ED, patient found on CT foot to have gas gangrene, and thus was transferred to [place] and taken by podiatry for debridement on 11/07 which revealed pus down to the bone, consistent with diabetic foot ulcer complicated by cellulitis, gas gangrene, and osteomyelitis. Kept in hospital for several days awaiting finalized micro for abx rec's, and then due to devitalized tissue required 2nd operative debridement on 11/15. Wound vac placed to assist with healing, and to follow in wound clinic. PICC placed, and ID consultation rec'd 6 weeks of therapy with cefepime and vanc. Dx: infected diabetic foot ulcer of R foot complicated by cellulitis, gas gangrene, and osteomyelitis of R 5th toe and lateral foot Pertinent tests/consults: Podiatry and ID consultations, PICC insertion 11/13, CT foot on admission, I&D/debridement/amputation 11/07, debridement 11/15 Follow up: Podiatry 1 week, ID 2-3 weeks, home health for wound and abx Tests pending: none Med changes: - new vanc iv, pharmacy to dose, last dose 12/25 - new cefepime 2 iv bid, last doses 12/25 - new flagyl 500 tid, last doses 12/25 - stop lisinopril 10 06/30 SANTA - change allopurinol 100 tid to 300 daily - decrease gabapentin from qid to tid - decrease metformin from 1000 bid to 500 bid while on vanc Mental status: awake, fully oriented Code status: National Sales Director spent on discharge: 40 minutes It has been my pleasure participating in this patient's care. Please contact me with any questions or concerns regarding their hospital stay. Sincerely, Nemesio Moss MD - Discharge Medications Prescriptions: New Cefepime HCl [Maxipime] 2,000 mg IVPB Q12HR #84 vial metroNIDAZOLE [Flagyl] 500 mg PO TID #120 tablet Vancomycin/0.9 % Sod Chloride [Vanco 1.5 gm/250 ml-0.9% NaCl] 1.5 gm IV Q24H #40 plast..bag Allopurinol [Zyloprim 300 MG] 300 mg PO DAILY #30 tablet Continued Albuterol Sulfate [Albuterol Inhaler] 2 puff IH Q4H PRN PRN Reason: Shortness Of Breath Amitriptyline [Elavil] 50 - 100 mg PO HS PRN PRN Reason: Sleep Atorvastatin Calcium [Lipitor] 20 mg PO DAILY Cholecalciferol (Vitamin D3) [Vitamin D3] 10,000 unit PO DAILY clonazePAM [Clonazepam] 0.25 - 0.5 mg PO BID PRN PRN Reason: Anxiety Ferrous Sulfate [Iron] 325 mg PO BID Furosemide [Lasix] 20 mg PO DAILY Meloxicam 15 mg PO DAILY Montelukast [Singulair] 10 mg PO QPM Oxybutynin [Ditropan] 5 mg PO BID Sertraline [Zoloft] 50 mg PO DAILY Tiotropium [place] [Spiriva Respimat] 2 puff IH DAILY Changed metFORMIN [Glucophage] 500 mg PO BID #0 Gabapentin [Neurontin] 800 mg PO TID #0 Discontinued Allopurinol [Zyloprim 100 MG] 100 mg PO TID Lisinopril [Zestril] 10 mg PO DAILY Home Medications: Albuterol Sulfate [Albuterol Inhaler] 2 puff IH Q4H PRN 11/09/18 [History] Amitriptyline [Elavil] 50 - 100 mg PO HS PRN 11/09/18 [History] Atorvastatin Calcium [Lipitor] 20 mg PO DAILY 11/09/18 [History] Cholecalciferol (Vitamin D3) [Vitamin D3] 10,000 unit PO DAILY 11/09/18 [History] Ferrous Sulfate [Iron] 325 mg PO BID 11/09/18 [History] Furosemide [Lasix] 20 mg PO DAILY 11/09/18 [History] Meloxicam 15 mg PO DAILY 11/09/18 [History] Montelukast [Singulair] 10 mg PO QPM 11/09/18 [History] Oxybutynin [Ditropan] 5 mg PO BID 11/09/18 [History] Sertraline [Zoloft] 50 mg PO DAILY 11/09/18 [History] Tiotropium [place] [Spiriva Respimat] 2 puff IH DAILY 11/09/18 [History] clonazePAM [Clonazepam] 0.25 - 0.5 mg PO BID PRN 11/09/18 [History] Cefepime HCl [Maxipime] 2,000 mg IVPB Q12HR #84 vial 11/13/18 [Rx] Allopurinol [Zyloprim 300 MG] 300 mg PO DAILY #30 tablet 11/16/18 [Rx] Gabapentin [Neurontin] 800 mg PO TID #0 11/16/18 [Rx] Vancomycin/0.9 % Sod Chloride [Vanco 1.5 gm/250 ml-0.9% NaCl] 1.5 gm IV Q24H #40 plast..bag 11/16/18 [Rx] metFORMIN [Glucophage] 500 mg PO BID #0 11/16/18 [Rx] metroNIDAZOLE [Flagyl] 500 mg PO TID #120 tablet 11/16/18 [Rx] Allergies/Adverse Reactions: Allergy/AdvReac Type Severity Reaction Status Date / Time No Known Allergies Allergy Verified 11/09/18 16:37 Date of admission: 11/08/18 12:09 Primary care physician: PCP NONE Consults: 11/07/18 22:00 Consult to Podiatry [CONS] Routine Consulting Provider: Podiatry [facility] Reason for Consult: Diabetic foot wound Call Completed: Yes 11/08/18 09:04 Consult to Infectious Diseases [CONS] Routine Consulting Provider: Infectious Disease [facility] Reason for Consult: osteomyelitis, routine consult for 11/09 Call Completed: No 11/09/18 11:09 Consult to Invasive Line Access Team [CONS] Routine Reason for Consult: PICC Line Type: PICC PICC line indications: terminal supervisor Med/Antibiotic 11/12/18 12:17 Consult to Invasive Line Access Team [CONS] Routine Reason for Consult: home atbs Line Type: PICC 11/13/18 08:09 Consult to Invasive Line Access Team [CONS] Routine Reason for Consult: homegoing abx, needs PICC Line Type: PICC PICC line indications: group home Med/Antibiotic - Constitutional Vitals: Temp Pulse Resp BP Pulse Ox 98.0 F 103 18 94/60 95 11/13/18 07:43 11/13/18 07:43 11/13/18 07:43 11/13/18 07:43 11/13/18 07:43 Exam: General: Sitting up in bed, appears comfortable Thoracic: Normal breath sounds b/l, no wheezing or crackles Cardio: Normal S1 and S2, regular rate and rhythm Abdomen: Soft, non-tender Extremities: Warm, well perfused. Bilateral pitting edema to the ankles, right foot bandaged with wound vac in place Neuro: Awake, fully oriented. Speech fluent. - Patient Status Disposition: Home Health Service Condition: Fair Functional capacity at discharge: uses cane/walker Overall status at discharge: patient is progressing back to baseline - Discharge Instructions Follow Up With: Yudy Finch PAC [Physician Sample Collector] - 11/19/18 9:45 am Theodore Munoz DPM [Partnered Physician] - 11/26/18 2:00 pm (Appt. will be in the wound care center. [phone]. Thank you) Amarilis Hudson, MEMBERSHIP SOLICITOR [Advanced Practice Nurse] - 11/27/18 2:40 pm - Diet and Activity Activity: as per physical therapy (protected [id number] only on R foot) Diet: diabetic diet
[2018-11-13] MEDS: Insulin LISPRO 300 UNITS/3 ML VIAL SQ SCH ×4 (08:24→20:06)
[2018-11-13] MEDS: Gabapentin 300 MG CAPSULE PO SCH ×3 (08:25→20:06)
[2018-11-13] MEDS: Furosemide 20 MG TABLET PO SCH (08:25)
[2018-11-13] MEDS: metroNIDAZOLE 500 MG TABLET PO SCH ×3 (08:33→20:06)
[2018-11-13] MEDS: Cefepime HCl 2,000 MG in Water for inj. (sterile) 20 ML 20 ML IVP SCH ×2 (08:33→17:31)
[2018-11-13] MEDS ORDERED: Vancomycin 1 EACH in 0.9 % Sodium Chloride 250 ML IVPB SCH (09:00)
[2018-11-13 09:16] LABS: C-Reactive Protein 20 mg/L (Less than 10)
--- NOTE | 2018-11-13 10:30 | Podiatry Progress Note ---
Date of Encounter: 11/13/18 Time of Encounter: 10:00 - Assessment and Plan (1) Foreign body (FB) in soft tissue Current Visit: No Status: Acute Path reports pending (2) Abscess of right foot Current Visit: No Status: Acute Assessment: -Post op day #5 right partial 5th ray amputation, incision and drainage, removal of foreign body by Dr. Munoz on 11/07/2018 -WBC 11.0, afebrile -Non-palpable pulses, cap refill less than 3 seconds -Skin warm from tibia to toes -Movement of toes noted -Intra-op cultures final Ecoli, Proteus H, Enterococcus F and A and group B strep. -Receiving IV antibiotics, ID onboard - Pending orders for discharge Plan: - spoke with , due to continued fibrous tissue within wound will require a 2nd debridement. Will plan to take patient to OR on . NPO after midnight monday night - After 2nd debridement will continue with wound vac use. -Dry dressing which was placed yesterday was removed at bedside - tremendous improvement in maceration to foot -Painted periwound with allkare skin prep -Macerated tissue covered with 4x4 dry gauze -tendon covered with white wound vac sponge, thickness of black simplace sponge cut in half and placed over white sponge -Draped skin with tegaderm for protection and tracked sponge to dorsal aspect of foot -sealed without leak with 150mmHg suction - Wound vac paperwork filled out and provided to SW - Pending ATB order from ID -SW setting up [facility] -Change wound vac Monday, Monday, and Monday as ordered and place to 150mmHg suction -Nursing staff to call for any questions or concerns - Will need post operative shoe to bedside prior to discharge - please make appointment to follow up with in wound care center 1 week after discharge - Patient to call with any fevers, chills, n/v or fls. -protective weight bearing to heel only. (3) Diabetes mellitus type 2 in obese Current Visit: Yes Status: Acute Subjective Interval history: Post op day #6 right partial 5th ray amputation, incision and drainage, removal of foreign body by Dr. Munoz on 11/07/2018 Patient up to chair and then transferred to bed for assessment. Patient reports she is doing well at this time. alert and oriented during my examination. Patient denies any chest pain, shortness of breath, or calf pain. She denies any fever, chills, n/v/d. Patient pending discharge with [facility] once ATB and Wound Vac is set up Objective - Vital Signs Vital Signs: Vital Signs Temp Pulse Resp BP Pulse Ox 11/13/18 07:43 98.0 F 103 18 94/60 95 11/13/18 07:29 16 90 11/13/18 05:06 98.4 F 101 16 123/79 90 11/12/18 19:48 100 109/65 11/12/18 13:49 97.9 F 95 16 126/71 90 Intake and Output 11/12/18 11/13/18 11/13/18 23:59 07:59 15:59 Intake Total 200 / 640 200 / 680 480 / 680 Balance 200 / 590 200 / 680 480 / 680 Intake: IV Fluids 200 / 400 200 / 200 Doxycycline 100 MG In 0.9 % 100 / 200 100 / 100 Sodium Chloride (Mini-Bag +) 100 ML @ 100 mls/hr IVPB Q12HR CORIN Rx#:[id number] Zosyn 3.375 GM In 0.9 % Sodium 100 / 200 100 / 100 Chloride (Mini-Bag +) 100 ML @ 25 mls/hr IVPB Q8HR CORIN Rx#: [id number] Oral 0 / 480 480 / 480 Other: Meal Breakfast Percent of Meal Consumed 100% # Voids 2 2 Weight 107.4 kg Blood Glucose* 226 234 Patient Weight 11/13/18 23:59 Weight 107.4 kg - Exam Exam: Constitutional: awake, alert and oriented. Tearful Vascular: 5th digit right foot amputated, non-palpable pulses, cap refill less than 3 seconds, no pain with calf squeeze Neurological: Absent protective sensation Dermatological: Surgical wound right lateral plantar aspect of foot with tendon exposed, no lymphangitis, mild expected post operative erythema noted periwound Maceration which was surrounding wound on 11/12 has improved tremendously. Scant serosanguineous drainage. No odor at this time. no appearance of cellulitis. No lymphangitis. minimal warmth. Toes warm, movement of remaining toes intact. 60% fibrous brown tissue and 40% healthy granulation tissue noted to wound bed. - Lab Result Diagrams: 11/13/18 06:22 11/13/18 06:22 Labs: Abnormal lab results RBC 3.60 M/mcL (3.82-4.97) L 11/11/18 06:26 Hgb 10.0 g/dL (11.5-15.4) L 11/13/18 06:22 Hct 33.8 % (35.3-44.9) L 11/13/18 06:22 MCV 80.9 fL (83.0-100.0) L 11/13/18 06:22 MCH 23.9 pg (28.0-33.3) L 11/13/18 06:22 MCHC 29.6 g/dL (31.6-35.5) L 11/13/18 06:22 RDW 15.8 % (11.5-14.5) H 11/13/18 06:22 Plt Count 565 K/mcL (140-400) H 11/13/18 06:22 MPV 9.2 fL (9.4-12.4) L 11/13/18 06:22 Present (Not Present) A 11/08/18 06:22 ESR >= 130 mm/hr (0-15) H 11/13/18 06:22 Sodium 135 mEq/L (136-145) L 11/13/18 06:22 Carbon Dioxide 34 mEq/L (23-29) H 11/11/18 06:26 BUN 24 mg/dL (8-23) H 11/13/18 06:22 0.52 mg/dL (0.60-1.20) L 11/10/18 06:54 29 (6-26) H 11/13/18 06:22 Glucose 219 mg/dL (70-105) H 11/13/18 06:22 POC Glucose 226 mg/dL (70-99) H 11/12/18 19:52 Calcium 8.3 mg/dL (8.6-10.3) L 11/09/18 05:01 Magnesium 1.2 mg/dL (1.6-2.6) L 11/13/18 06:22 0.2 mg/dL (0.3-1.0) L 11/13/18 06:22 20 mg/L (Less than 10) H 11/13/18 06:22 3.4 g/dL (3.5-5.7) L 11/13/18 06:22 3.6 g/dL (2.4-3.5) H 11/13/18 06:22 0.9 (1.1-2.2) L 11/13/18 06:22 Vancomycin Trough 12 mcg/mL (5-10) H 11/09/18 05:01 Microbiology, Last 48 Hours 11/08/18 00:17 Anaerobic Culture - Preliminary Right Foot At this time, no anaerobic growth is present. The culture will be finalized after 5 days of incubation. 11/08/18 00:15 Surgical Biopsy Culture - Final Right Foot Escherichia coli Proteus hauseri Enterococcus faecalis Enterococcus avium Strep agalactiae - (Group B) Methicillin Resistant S.aureus 11/08/18 00:15 Surgical Biopsy Culture - Final Right Foot Strep agalactiae - (Group B) Proteus hauseri Escherichia coli Enterococcus faecalis Enterococcus avium Staphylococcus cohnii Consult Discharge Plan - Plan Referrals: Amarilis Hudson FIRER LOCOMOTIVE [Advanced Practice Nurse] - 11/27/18 2:40 pm NONE,PCP [Primary Care Provider] - Prescriptions: Cefepime HCl [Maxipime] 2,000 mg IVPB Q12HR #84 vial Vancomycin/0.9 % Sod Chloride [Vanco 1.25 gm/250 ml-0.9% NaCl] 1.25 gm IV Q12H #84 plast..bag
--- NOTE | 2018-11-13 11:58 | Internal Med Progress Note ---
Hospitalist Progress Note - Encounter Date of Encounter: 11/13/18 Time of Encounter: 07:45 - Subjective Interval History: Pt doing well, denies acute complaints. Would like to go home today and is disappointed that she cannot. Understands that her abx needed to be changed and thus labs (vanc trough) to be drawn tomorrow. Says her leg has stopped hurting and she is hopeful that she is improving. Denies N/V/D. - Exam Vitals: Temp Pulse Resp BP Pulse Ox 98.0 F 103 18 94/60 95 11/13/18 07:43 11/13/18 07:43 11/13/18 07:43 11/13/18 07:43 11/13/18 07:43 Exam: General: Sitting up in bed, appears comfortable Thoracic: Normal breath sounds b/l, no wheezing or crackles Cardio: Normal S1 and S2, regular rate and rhythm Abdomen: Soft, non-tender Extremities: Warm, well perfused. Bilateral pitting edema to the ankles, left foot with wound VAC in place, s/p 5th toe amputation, necrotic skin noted, distal pulses are present and equal bilaterally. Neuro: Awake, fully oriented. Speech fluent. - Summary of Assessment and Plan Summary of Assessment and Plan: Sheryl Rodríguez is a 63 F w hx DM2 c/b severe neuropathy, HTN, gout, obesity, who p/w R foot wound of unknown extent or duration, found on imaging to have gas bubbles, and taken by podiatry for debridement on 11/07 which revealed pus down to the bone, consistent with diabetic foot ulcer complicated by cellulitis, gas gangrene, and osteomyelitis. Diabetic foot ulcer c/b cellulitis, gas gangrene, and osteomyelitis: s/p partial 5th toe amputation on 11/[address] Munoz. Clinically doing well. Final cultures polymicrobial growing strep agalactiae, Proteus, Escherichia coli, Enterococcus faecalis, enterococcus avium, and Staphylococcus cohnii. - Podiatry following, appreciate co-management - ID consult, appreciate abx rec's - change abx to vanc, cefepime, and flagyl, x6w last doses 12/25/2018 - needs midline exchanged for PICC - check vanc trough tomorrow and plan to d/c after dose adjustment if needed DM2: uncontrolled, holding orals, use basal and SSI Peripheral neuropathy: 2/2 DM2, home gabapentin 800 tid HTN: home lisinopril 10, lasix 40 prn Gout: home allopurinol 100 Obesity: BMI 39 PPx: sqh FEN: ADA, no MIVF Lines: needs PICC Consults: Podiatry, ID Code: Full Dispo: home health for IV abx, anticipate d/c tomorrow Internal Medicine: Result - Labs CBC & Chem 7: 11/13/18 06:22 11/13/18 06:22 Labs: Short CBC 11/13/18 Range/Units 06:22 WBC 11.0 (4.3-11.1) K/mcL Hgb 10.0 L (11.5-15.4) g/dL Hct 33.8 L (35.3-44.9) % Plt Count 565 H (140-400) K/mcL BMP 11/13/18 06:22 Sodium 135 L Potassium 4.8 Chloride 98 Carbon Dioxide 27 BUN 24 H Creatinine 0.83 Glucose 219 H Calcium 9.6 Liver Function 11/13/18 Range/Units 06:22 Total Bilirubin 0.2 L (0.3-1.0) mg/dL Direct Bilirubin 0.1 (0.0-0.2) mg/dL AST 14 (13-39) Units/L ALT 16 (7-52) Units/L Alkaline Phosphatase 86 (34-104) Units/L Albumin 3.4 L (3.5-5.7) g/dL Consult Discharge Plan - Plan Referrals: Amarilis Hudson, NUT PICKER [Advanced Practice Nurse] - 11/27/18 2:40 pm NONE,PCP [Primary Care Provider] - Prescriptions: Cefepime HCl [Maxipime] 2,000 mg IVPB Q12HR #84 vial Vancomycin/0.9 % Sod Chloride [Vanco 1.25 gm/250 ml-0.9% NaCl] 1.25 gm IV Q12H #84 plast..bag
--- NOTE | 2018-11-13 12:00 | Infectious Disease Progress No ---
ID Progress Note Date of Encounter: 11/13/18 Time of Encounter: 11:58 - Subjective Subjective: Patient seen and examined sitting up in the bedside chair. No acute events noted overnight. Patient states she feels well and wants to go home. Denies any fevers, chills, or rigors. Denies chest pain, shortness of breath, or cough. Denies nausea, vomiting, diarrhea, or constipation. She does report some loose stool. Denies abdominal pain or urinary complaints. Denies oral thr ush or skin rashes. Pending discharge tomorrow. - Objective CBC & Chem 7: 11/14/18 05:08 11/14/18 05:08 - Exam Vitals: Temp Pulse Resp BP Pulse Ox 98.0 F 103 18 94/60 95 11/13/18 07:43 11/13/18 07:43 11/13/18 07:43 11/13/18 07:43 11/13/18 07:43 Exam: Head: Atraumatic, normal inspection, normocephalic. Eye: EOMI, PERRLA, no scleral icterus noted. ENT: Mucous membranes moist. No odontogenic infection noted. Neck: Normal inspection, no meningismus. Respiratory: Clear to auscultation. No rales, respiratory distress, rhonchi, or wheezes noted. Cardiovascular: Regular rate and rhythm, S1 and S2 audible. No murmurs, rubs, or gallops. GI: Soft, nondistended, normal bowel sounds. Extremities:No joint swelling, pedal edema, or tenderness noted. Right foot dr lugo C/D/I. Wound VAC noted to the right foot without leak. Back: Normal inspection. No vertebral tenderness noted. Neurological: Alert, oriented 3, no focal deficits. Psychiatric: normal affect, normal mood. Skin: Dry, intact, warm. Normal color. No rashes. - Assessment and Plan (1) Gas gangrene Current Visit: No Status: Acute Location: Right foot. Likely infectious, secondary to diabetic foot ulcer. Causative organism: S. cohnii, MRSA, GBS, P. hauseri, E. coli, E. faecalis, E. avium, and anaerobic GNR. CT foot 11/07/2018 reveals right subcutaneous gas extending along the plantar lateral soft tissue. Podiatry consulted. Status post right partial fifth ray amputation, incision and drainage and removal of foreign body 11/07/18. Operative note reviewed. It appears there was a lot of purulence devitalized tissue and necrotic tissue. Intra-op 5th MTH cultures positive for GBS, P. hauseri, E. coli, E. faecalis, E. avium, and S. cohnii. Intra-op 5th proximal phalanx cultures positive for E. coli, P. hauseri, E. faecalis, E. avium, GBS, and MRSA. Currently on Vancomycin, Cefepime, and flagyl. SNOMED Code(s): 20950767 (2) Cellulitis Current Visit: No Status: Acute Location: Right foot. Likely secondary to DFU and gangrene. Causative organism: polymicrobial. Improved per patient report. Currently on Vancomycin, cefepime, and flagyl. Qualifiers: Site of cellulitis: extremity Site of cellulitis of extremity: lower extremity Laterality: right Qualified Code(s): L03.115 - Cellulitis of right lower limb SNOMED Code(s): 439637213 (3) Foreign body (FB) in soft tissue Current Visit: No Status: Acute Location: Right foot. Status post removal 11/07/18. SNOMED Code(s): 404577027, 348656318 (4) Foot ulcer due to secondary DM Current Visit: No Status: Acute Podiatry consulted and following. SNOMED Code(s): 7909699 (5) Hypertension Current Visit: Yes Status: Chronic Qualifiers: Hypertension type: essential hypertension Qualified Code(s): I10 - Essential (primary) hypertension SNOMED Code(s): 41951024 (6) Gout Current Visit: Yes Status: Chronic Qualifiers: Gout site: unspecified site Gout etiology: unspecified cause Chronicity: unspecified Qualified Code(s): M10.9 - Gout, unspecified SNOMED Code(s): 76491127 (7) Diabetes mellitus type 2 in obese Current Visit: Yes Status: Acute Recommend aggressive glucose monitoring and control to promote wound healing and prevent re-infection. Management per the primary team. SNOMED Code(s): 88601769 - Recommendations Recommendations: Await anaerobic cultures to finalize. Wound care and activity per the Podiatry team. Continue Vancomycin IV. Pharmacy to dose. Goal trough ~15. Continue cefepime 2 grams IV Q12H. Continue flagyl 500mg PO TID. Duration of treatment depends on the clinical picture, but likely 6 weeks. Monitor renal function and for drug toxicity and dose-adjust antibiotics. pupil personnel services director to assist with discharge planning. Will need weekly CBC, BUN/Cr, ESR, CRP, Vanc trough. Will need weekly PICC care per protocol. Follow up with ID 11/27/18 at 1440. Consult Discharge Plan - Plan Referrals: Amarilis Hudson, THERAPEUTIC CASE MANAGER [Advanced Practice Nurse] - 11/27/18 2:40 pm NONE,PCP [Primary Care Provider] - Prescriptions: Cefepime HCl [Maxipime] 2,000 mg IVPB Q12HR #84 vial Vancomycin/0.9 % Sod Chloride [Vanco 1.25 gm/250 ml-0.9% NaCl] 1.25 gm IV Q12H #84 plast..bag - Attending Attestation I have personally performed a face to face evaluation on this patient. I have re viewed and agree with the care plan. History and Exam by me shows: Assessment and plan: 1.Gas gangrene 2.Cellulitis 3.Foreign body in the soft tissue 4.Foot ulcer due to secondary diabetes mellitus 5.Hypertension 6.Gout 7.Diabetes mellitus type 2 and obese BMI 39 Recommendations: Continue vancomycin, cefepime and Flagyl. Goal vancomycin trough around 15. Duration of treatment likely 6 weeks Weekly CBC, BMP, ESR, CRP and vancomycin trough
[2018-11-13] MEDS: Insulin DETEMIR 100 UNIT/ML X5UNITS SQ SCH (20:07)
[2018-11-14] MEDS: Cefepime HCl 2,000 MG in Water for inj. (sterile) 20 ML 20 ML IVP SCH ×2 (05:20→16:53)
[2018-11-14] MEDS: *HR* Heparin 5,000 UNIT/ML VIAL SQ SCH ×2 (05:20→16:52)
[2018-11-14 05:56] LABS: Hematocrit 34.7 % (35.3-44.9); Hemoglobin 10.4 g/dL (11.5-15.4); Mean Corpuscular Hemoglobin 24.3 pg (28.0-33.3); Mean Corpuscular Volume 81.1 fL (83.0-100.0); Mean Platelet Volume 9.7 fL (9.4-12.4); Platelet Count 557 K/mcL (140-400); Red Blood Count 4.28 M/mcL (3.82-4.97); Red Cell Distribution Width 15.9 % (11.5-14.5); White Blood Count 12.6 K/mcL (4.3-11.1)
[2018-11-14 06:13] LABS: BUN/Creatinine Ratio 35 (6-26); Blood Urea Nitrogen 35 mg/dL (8-23); Calcium 9.2 mg/dL (8.6-10.3); Carbon Dioxide 26 mEq/L (23-29); Chloride 98 mEq/L (98-107); Glucose 210 mg/dL (70-105); Osmolality,Calculated 292 (280-300); Potassium 5.1 mEq/L (3.5-5.1); Sodium 134 mEq/L (136-145); Vancomycin,Trough 13 mcg/mL (5-10); eGFR For African Americans > 60 (> 60); eGFR For Non-African Americans 55 (> 60)
[2018-11-14] MEDS: Tiotropium 18 MCG inhalation IH SCH (07:31)
--- NOTE | 2018-11-14 07:54 | Internal Med Progress Note ---
Hospitalist Progress Note - Encounter Date of Encounter: 11/14/18 Time of Encounter: 07:54 - Subjective Interval History: Pt doing well. Not happy with need to stay in hospital as she wants to just go home. Plan for surgery tomorrow. Denies N/V, SOB, CP, abd pain. No pain in foot. - Exam Vitals: Temp Pulse Resp BP Pulse Ox 98.3 F 98 18 108/69 94 11/14/18 06:59 11/14/18 06:59 11/14/18 07:32 11/14/18 06:59 11/14/18 07:32 Exam: General: Sitting up in bed, appears comfortable Thoracic: Normal breath sounds b/l, no wheezing or crackles Cardio: Normal S1 and S2, regular rate and rhythm Abdomen: Soft, non-tender Extremities: Warm, well perfused. Bilateral pitting edema to the ankles, left foot with wound VAC in place, s/p 5th toe amputation, necrotic skin noted, distal pulses are present and equal bilaterally. Neuro: Awake, fully oriented. Speech fluent. - Summary of Assessment and Plan Summary of Assessment and Plan: Sheryl Rodríguez is a 63 F w hx DM2 c/b severe neuropathy, HTN, gout, obesity, who p/w R foot wound of unknown extent or duration, found on imaging to have gas bubbles, and taken by podiatry for debridement on 11/07 which revealed pus down to the bone, consistent with diabetic foot ulcer complicated by cellulitis, gas gangrene, and osteomyelitis. Diabetic foot ulcer c/b cellulitis, gas gangrene, and osteomyelitis: s/p partial 5th toe amputation on 11/[address] Munoz. Clinically doing well although does have devitalized tissue on lateral foot. Final cultures polymicrobial growing strep agalactiae, Proteus, Escherichia coli, Enterococcus faecalis, enterococcus avium, and Staphylococcus cohnii. - Podiatry following, appreciate co-management and plans for further debridement on 11/15 - ID consult, appreciate abx rec's - continue vanc, cefepime 2g iv bid, and flagyl 500 po tid, all x6w, last doses 12/25/2018 - pharmacy to dose-adjust vanc - SW assisting for home health for wound vac and IV abx - PICC inserted 11/13 SANTA: c/b mild hyperkalemia, unclear etiology, vanc trough this AM not elevated - check UA - holding lisinopril and lasix - repeat BMP in AM DM2: uncontrolled, holding orals, use basal and SSI Peripheral neuropathy: 2/2 DM2, home gabapentin 800 tid HTN: holding home lisinopril 10 and lasix 40 prn Gout: home allopurinol 100 Obesity: BMI 39 PPx: sqh FEN: ADA, no MIVF Lines: needs PICC Consults: Podiatry, ID Code: Full Dispo: home health for IV abx, depending on OR time tomorrow can anticipate d/c tomorrow evening or Monday AM Internal Medicine: Result - Labs CBC & Chem 7: 11/14/18 05:08 11/14/18 05:08 Labs: Short CBC 11/14/18 Range/Units 05:08 WBC 12.6 H (4.3-11.1) K/mcL Hgb 10.4 L (11.5-15.4) g/dL Hct 34.7 L (35.3-44.9) % Plt Count 557 H (140-400) K/mcL BMP 11/14/18 05:08 Sodium 134 L Potassium 5.1 Chloride 98 Carbon Dioxide 26 BUN 35 H Creatinine 1.01 Glucose 210 H Calcium 9.2 Consult Discharge Plan - Plan Referrals: Amarilis Hudson WORKPLACE TRAINER AND ASSESSOR [Advanced Practice Nurse] - 11/27/18 2:40 pm NONE,PCP [Primary Care Provider] - Prescriptions: Cefepime HCl [Maxipime] 2,000 mg IVPB Q12HR #84 vial Vancomycin/0.9 % Sod Chloride [Vanco 1.25 gm/250 ml-0.9% NaCl] 1.25 gm IV Q12H #84 plast..bag
[2018-11-14] MEDS: metroNIDAZOLE 500 MG TABLET PO SCH ×3 (07:58→20:32)
[2018-11-14] MEDS: Gabapentin 300 MG CAPSULE PO SCH ×3 (07:58→20:33)
[2018-11-14] MEDS: Furosemide 20 MG TABLET PO SCH (07:58)
[2018-11-14] MEDS: Insulin LISPRO 300 UNITS/3 ML VIAL SQ SCH ×4 (08:00→20:32)
--- NOTE | 2018-11-14 10:30 | Infectious Disease Progress No ---
ID Progress Note Date of Encounter: 11/14/18 Time of Encounter: 10:00 - Subjective Subjective: Patient seen and examined. No acute events noted overnight. Patient states she feels well and wants to go home. Podiatry planning repeat debridement . Denies any fevers, chills, or rigors. Denies chest pain, shortness of breath, or cough. Denies nausea, vomiting, diarrhea, or constipation. She does report some loose stool and states she had a BM this morning. Denies abdominal pain or urinary complaints. Denies oral thrush or skin rashes. - Objective CBC & Chem 7: 11/16/18 03:10 11/16/18 03:10 - Exam Vitals: Temp Pulse Resp BP Pulse Ox 98.3 F 98 18 108/69 94 11/14/18 06:59 11/14/18 06:59 11/14/18 07:32 11/14/18 06:59 11/14/18 07:32 Exam: Head: Atraumatic, normal inspection, normocephalic. Eye: EOMI, PERRLA, no scleral icterus noted. ENT: Mucous membranes moist. No odontogenic infection noted. Neck: Normal inspection, no meningismus. Respiratory: Clear to auscultation. No rales, respiratory distress, rhonchi, or wheezes noted. Cardiovascular: Regular rate and rhythm, S1 and S2 audible. No murmurs, rubs, or gallops. GI: Soft, nondistended, normal bowel sounds. Extremities:No joint swelling, pedal edema, or tenderness noted. Right foot dressing C/D/I. Wound VAC noted to the right foot without leak. Scant dark red drainage noted in the tubing. Neurological: Alert, oriented 3, no focal deficits. Psychiatric: normal affect, normal mood. Skin: Dry, intact, warm. Normal color. No rashes. - Assessment and Plan (1) Gas gangrene Status: Acute Location: Right foot. Likely infectious, secondary to diabetic foot ulcer. Causative organism: S. cohnii, MRSA, GBS, P. hauseri, E. coli, E. faecalis, E. avium, and anaerobic GNR. CT foot 11/07/2018 reveals right subcutaneous gas extending along the plantar lateral soft tissue. Podiatry consulted. Status post right partial fifth ray amputation, incision and drainage and removal of foreign body 6/12/19. Operative note reviewed. It appears there was a lot of purulence devitalized tissue and necrotic tissue. Intra-op 5th MTH cultures positive for GBS, P. hauseri, E. coli, E. faecalis, E. avium, and S. cohnii. Intra-op 5th proximal phalanx cultures positive for E. coli, P. hauseri, E. faecalis, E. avium, GBS, and MRSA. Podiatry planning for repeat debridement tomorrow. Currently on Vancomycin, Cefepime, and flagyl. SNOMED Code(s): 20929727 (2) Cellulitis Status: Acute Location: Right foot. Likely secondary to DFU and gangrene. Causative organism: polymicrobial. Improved per patient report. Currently on Vancomycin, cefepime, and flagyl. Qualifiers: Site of cellulitis: extremity Site of cellulitis of extremity: lower extremity Laterality: right Qualified Code(s): L03.115 - Cellulitis of right lower limb SNOMED Code(s): 110336884 (3) Foreign body (FB) in soft tissue Status: Acute Location: Right foot. Status post removal 11/07/18. SNOMED Code(s): 939031126, 528947809 (4) Foot ulcer due to secondary DM Status: Acute Podiatry consulted and following. SNOMED Code(s): 9057970 (5) Hypertension Status: Chronic Qualifiers: Hypertension type: essential hypertension Qualified Code(s): I10 - Essential (primary) hypertension SNOMED Code(s): 49101258 (6) Gout Status: Chronic Qualifiers: Gout site: unspecified site Gout etiology: unspecified cause Chronicity: unspecified Qualified Code(s): M10.9 - Gout, unspecified SNOMED Code(s): 86814466 (7) Diabetes mellitus type 2 in obese Status: Acute Recommend aggressive glucose monitoring and control to promote wound healing and prevent re-infection. Management per the primary team. SNOMED Code(s): 33582183 - Recommendations Recommendations: Await anaerobic cultures to finalize. Wound care, further surgical intervention, and activity per the Podiatry team. Continue Vancomycin IV. Pharmacy to dose. Goal trough ~15. Continue cefepime 2 grams IV Q12H. Continue flagyl 500mg PO TID. Duration of treatment depends on the clinical picture, but likely 6 weeks. Monitor renal function and for drug toxicity and dose-adjust antibiotics. library services coordinator to assist with discharge planning. Will need weekly CBC, BUN/Cr, ESR, CRP, Vanc trough. Will need weekly PICC care per protocol. Follow up with ID 11/27/18 at 1440. Consult Discharge Plan - Plan Instructions: Cellulitis (DC), Diabetic Foot Care (DC), Debridement (DC) Referrals: Yudy Finch PAC [Physician Carrier Loader] - 11/19/18 9:45 am Theodore Munoz DPM [Partnered Physician] - 11/26/18 2:00 pm (Appt. will be in the wound care center. [phone]. Thank you) Amarilis Hudson, CONTACT AGENT [Advanced Practice Nurse] - 11/27/18 2:40 pm Prescriptions: metroNIDAZOLE [Flagyl] 500 mg PO TID #120 tablet Cefepime HCl [Maxipime] 2,000 mg IVPB Q12HR #84 vial Vancomycin/0.9 % Sod Chloride [Vanco 1.5 gm/250 ml-0.9% NaCl] 1.5 gm IV Q24H #40 plast..bag Allopurinol [Zyloprim 300 MG] 300 mg PO DAILY #30 tablet - Attending Attestation I have personally performed a face to face evaluation on this patient. I have reviewed and agree with the care plan. History and Exam by me shows: ssessment and plan: 1.Gas gangrene 2.Cellulitis 3.Foreign body in the soft tissue 4.Foot ulcer due to secondary diabetes mellitus 5.Hypertension 6.Gout 7.Diabetes mellitus type 2 and obese BMI 39 Recommendations: Continue vancomycin, cefepime and Flagyl. Goal vancomycin trough around 15. Duration of treatment likely 6 weeks Weekly CBC, BMP, ESR, CRP and vancomycin trough. Will need weekly PICC care per protocol. Follow up with ID 11/27/18 at 1440.
--- NOTE | 2018-11-14 12:04 | Podiatry Progress Note ---
Date of Encounter: 11/14/18 Time of Encounter: 11:30 - Assessment and Plan (1) Foreign body (FB) in soft tissue Current Visit: No Status: Acute Path reports pending (2) Abscess of right foot Current Visit: No Status: Acute Assessment: -Post op day #5 right partial 5th ray amputation, incision and drainage, removal of foreign body by Dr. Munoz on 11/07/2018 -WBC 12.3, trending up. afebrile -Non-palpable pulses, cap refill less than 3 seconds -Skin warm from tibia to toes -Movement of toes noted -Intra-op cultures final Ecoli, Proteus H, Enterococcus F and A and group B strep and MRSA- patient now in contact isolation -Receiving IV antibiotics, ID onboard - Plan: - spoke with , due to continued fibrous tissue within wound will require a 2nd debridement. Will plan to take patient to OR on . NPO after midnight monday night - After 2nd debridement will continue with wound vac use. -Wound vac intact and running today without issue. Continue - Wound vac paperwork filled out and provided to SW - Pending ATB order from ID -SW setting up [facility] -Change wound vac Monday, Monday, and Monday as ordered and place to 150mmHg suction -Nursing staff to call for any questions or concerns - Will need post operative shoe to bedside prior to discharge - please make appointment to follow up with in wound care center 1 week after discharge - Patient to call with any fevers, chills, n/v or fls. -protective weight bearing to heel only. - Spoke with patient regarding surgical procedure risks and benefits at bedside. Patient denies any questions or concerns. Consent was obtained and placed to patients chart. Tentative OR time 1029. Discussed with patient and KIMBERLY Shea (3) Diabetes mellitus type 2 in obese Current Visit: Yes Status: Acute Subjective Interval history: Post op day #7 right partial 5th ray amputation, incision and drainage, removal of foreign body by Dr. Munoz on 11/07/2018 Patient up to chair and then transferred to bed for assessment. Patient reports she is doing well at this time. alert and oriented during my examination. Patient denies any chest pain, shortness of breath, or calf pain. She denies any fever, chills, n/v/d. Patient pending repeat I&D tomorrow and then discharge with IV ATB and wound vac. Objective - Vital Signs Vital Signs: Vital Signs Temp Pulse Resp BP Pulse Ox 11/14/18 10:00 98.0 F 97 16 111/66 93 11/14/18 07:32 18 94 11/14/18 06:59 98.3 F 98 16 108/69 92 11/14/18 03:59 98.4 F 90 16 97/55 92 11/13/18 20:32 97.6 F 90 14 111/69 96 11/13/18 15:48 97.7 F 98 16 100/54 98 Intake and Output 11/13/18 11/14/18 11/14/18 23:59 07:59 15:59 Intake Total 290 / 1074 120 / 600 480 / 600 Output Total 0 / 0 Balance 290 / 1074 120 / 600 480 / 600 Intake: IV Fluids 290 / 594 Maxipime 2,000 MG In Water for 40 / 40 inj. (sterile) 20 ML @ 300 mls/ hr IVP Q12HR CORIN Rx#:[id number] Vancocin 1,500 MG In 0.9 % 250 / 250 Sodium Chloride 250 ML @ 166.67 mls/hr IVPB Q24H CORIN Rx#: [id number] Oral 120 / 600 480 / 600 Output: Wound Drainage 0 / 0 Right Foot 0 / 0 Other: Meal Breakfast Percent of Meal Consumed 50% Stool Size Small Moderate Stool Consistency soft loose Stool Color Brown # Voids 1 1 # Urine Diapers 2 Weight 107.5 kg Blood Glucose* 253 204 274 Patient Weight 11/14/18 23:59 Weight 107.5 kg - Exam Exam: Constitutional: awake, alert and oriented. Tearful Vascular: 5th digit right foot amputated, non-palpable pulses, cap refill less than 3 seconds, no pain with calf squeeze Neurological: Absent protective sensation Dermatological: Wound vac intact to RLE. Running without leak. Scant bloody drainage noted to tubing. No drainage to canister. Toes warm. Cap refill <3 seconds. Movement of toes intact. - Lab Result Diagrams: 11/14/18 05:08 11/14/18 05:08 Labs: Abnormal lab results WBC 12.6 K/mcL (4.3-11.1) H 11/14/18 05:08 RBC 3.60 M/mcL (3.82-4.97) L 11/11/18 06:26 Hgb 10.4 g/dL (11.5-15.4) L 11/14/18 05:08 Hct 34.7 % (35.3-44.9) L 11/14/18 05:08 MCV 81.1 fL (83.0-100.0) L 11/14/18 05:08 MCH 24.3 pg (28.0-33.3) L 11/14/18 05:08 MCHC 30.0 g/dL (31.6-35.5) L 11/14/18 05:08 RDW 15.9 % (11.5-14.5) H 11/14/18 05:08 Plt Count 557 K/mcL (140-400) H 11/14/18 05:08 MPV 9.2 fL (9.4-12.4) L 11/13/18 06:22 Present (Not Present) A 11/08/18 06:22 ESR >= 130 mm/hr (0-15) H 11/13/18 06:22 Sodium 134 mEq/L (136-145) L 11/14/18 05:08 Carbon Dioxide 34 mEq/L (23-29) H 11/11/18 06:26 BUN 35 mg/dL (8-23) H 11/14/18 05:08 0.52 mg/dL (0.60-1.20) L 11/10/18 06:54 Est GFR (Non-Af Amer) 55 (> 60) L 11/14/18 05:08 35 (6-26) H 11/14/18 05:08 Glucose 210 mg/dL (70-105) H 11/14/18 05:08 POC Glucose 253 mg/dL (70-99) H 11/13/18 19:17 Calcium 8.3 mg/dL (8.6-10.3) L 11/09/18 05:01 Magnesium 1.2 mg/dL (1.6-2.6) L 11/13/18 06:22 0.2 mg/dL (0.3-1.0) L 11/13/18 06:22 20 mg/L (Less than 10) H 11/13/18 06:22 3.4 g/dL (3.5-5.7) L 11/13/18 06:22 3.6 g/dL (2.4-3.5) H 11/13/18 06:22 0.9 (1.1-2.2) L 11/13/18 06:22 Vancomycin Trough 13 mcg/mL (5-10) H 11/14/18 05:08 Microbiology, Last 48 Hours 11/08/18 00:15 Anaerobic Culture - Final Right Foot Bacteroides uniformis 11/08/18 00:17 Anaerobic Culture - Preliminary Right Foot At this time, no anaerobic growth is present. The culture will be finalized after 5 days of incubation. 11/08/18 00:15 Surgical Biopsy Culture - Final Right Foot Escherichia coli Proteus hauseri Enterococcus faecalis Enterococcus avium Strep agalactiae - (Group B) Methicillin Resistant S.aureus Consult Discharge Plan - Plan Referrals: Amarilis Hudson CNP [Advanced Practice Nurse] - 11/27/18 2:40 pm NONE,PCP [Primary Care Provider] - Prescriptions: Cefepime HCl [Maxipime] 2,000 mg IVPB Q12HR #84 vial Vancomycin/0.9 % Sod Chloride [Vanco 1.25 gm/250 ml-0.9% NaCl] 1.25 gm IV Q12H #84 plast..bag
--- NOTE | 2018-11-14 17:55 | Anesthesia Evaluation PreOp ---
Date of Encounter: 11/14/18 Time of Encounter: 18:18 - Past History Planned Operation: RIGHT FOOT I&D Cardiac History: HTN, Hyperlipidemia Pulmonary History: Asthma [employer] History: Other (DIABETIC NEUROPATHY) Other Medical History: Renal ([place]), Diabetes Type II, Other (ANEMIA, GOUT, OBESITY) Anesthesia History: No Prior Anesthetic Complications, Past Anesthesia Alcohol Use: none Drug use: none Medications and Allergies Allopurinol [Zyloprim 100 MG] 100 mg PO TID 08/29/15 [History] Gabapentin [Neurontin] 800 mg PO QID 08/29/15 [History] Lisinopril [Zestril] 10 mg PO DAILY 08/29/15 [History] metFORMIN [Glucophage] 1,000 mg PO BID 08/29/15 [History] Albuterol Sulfate [Albuterol Inhaler] 2 puff IH Q4H PRN 11/09/18 [History] Amitriptyline [Elavil] 50 - 100 mg PO HS PRN 11/09/18 [History] Atorvastatin Calcium [Lipitor] 20 mg PO DAILY 11/09/18 [History] Cholecalciferol (Vitamin D3) [Vitamin D3] 10,000 unit PO DAILY 11/09/18 [History] Ferrous Sulfate [Iron] 325 mg PO BID 11/09/18 [History] Furosemide [Lasix] 20 mg PO DAILY 11/09/18 [History] Meloxicam 15 mg PO DAILY 11/09/18 [History] Montelukast [Singulair] 10 mg PO QPM 11/09/18 [History] Oxybutynin [Ditropan] 5 mg PO BID 11/09/18 [History] Sertraline [Zoloft] 50 mg PO DAILY 11/09/18 [History] Tiotropium [place] [Spiriva Respimat] 2 puff IH DAILY 11/09/18 [History] clonazePAM [Clonazepam] 0.25 - 0.5 mg PO BID PRN 11/09/18 [History] Cefepime HCl [Maxipime] 2,000 mg IVPB Q12HR #84 vial 11/13/18 [Rx] Vancomycin/0.9 % Sod Chloride [Vanco 1.25 gm/250 ml-0.9% NaCl] 1.25 gm IV Q12H #84 plast..bag 11/13/18 [Rx] Allergy/AdvReac Type Severity Reaction Status Date / Time No Known Allergies Allergy Verified 11/09/18 16:37 - Meds/Allergy Pre-op Review Medications Reviewed: Yes Allergies Reviewed: Yes Beta Blockers on Current Med List: No Anesthesia Results - Labs 11/14/18 05:08 11/14/18 05:08 Laboratory Tests 11/14/18 05:08 Est GFR (Non-Af Amer) 55 L Calcium 9.2 Anesthesia Exam Vital Signs/O2 Sat/Glucose, Most Recent Temp Pulse Resp BP Pulse Ox 98.9 F 95 17 111/57 93 11/14/18 16:38 11/14/18 16:38 11/14/18 16:38 11/14/18 16:38 11/14/18 16:38 Blood Glucose* 224 Weight: 108 KG - BMI 39 NPO (# of Hours): >MN - HEENT Mallampati: II Teeth: Edentulous - Cardiac Rhythm: Regular - Pulmonary Breath Sounds: bilateral Clear Respiratory Effort: Symmetrical Anesthesia Assess/Plan ASA Score: 3 Anesthetic Plan: MAC Monitoring Plan: Standard Monitors Recovery Plan: PACU (PHASE 2 IF APPROPRIATE)
[2018-11-14] MEDS: Insulin DETEMIR 100 UNIT/ML X5UNITS SQ SCH (20:32)
[2018-11-15] MEDS: *HR* Heparin 5,000 UNIT/ML VIAL SQ SCH ×2 (05:07→18:31)
[2018-11-15] MEDS: Cefepime HCl 2,000 MG in Water for inj. (sterile) 20 ML 20 ML IVP SCH ×2 (05:36→18:30)
[2018-11-15] MEDS: Insulin LISPRO 300 UNITS/3 ML VIAL SQ SCH ×3 (05:37→16:45)
[2018-11-15] MEDS ORDERED: Vancomycin 1,000 MG, Sodium Chloride IRRigation 1,000 ML IR ONE ×2 (06:00→12:11)
[2018-11-15] MEDS: Tiotropium 18 MCG inhalation IH SCH (07:41)
--- NOTE | 2018-11-15 07:55 | Internal Med Progress Note ---
Hospitalist Progress Note - Encounter Date of Encounter: 11/15/18 Time of Encounter: 07:55 - Subjective Interval History: Pt wants to go home. Ready for OR today for debridement, and hoping it goes well and quickly so that she can d/c later today. Advised that it depend on how much debridement/bleeding there is. Denies leg swelling, SOB, CP, N/V/D. - Exam Vitals: Temp Pulse Resp BP Pulse Ox 97.9 F 91 20 97/60 94 11/15/18 07:37 11/15/18 07:37 11/15/18 07:41 11/15/18 07:37 11/15/18 07:41 Exam: General: Sitting up in bed, appears comfortable Thoracic: Normal breath sounds b/l, no wheezing or crackles Cardio: Normal S1 and S2, regular rate and rhythm Abdomen: Soft, non-tender Extremities: Warm, well perfused. Bilateral pitting edema to the ankles, left f oot with wound vac in place, s/p 5th toe amputation, necrotic skin noted, distal pulses are present and equal bilaterally. Neuro: Awake, fully oriented. Speech fluent. - Summary of Assessment and Plan Summary of Assessment and Plan: Sheryl Rodríguez is a 63 F w hx DM2 c/b severe neuropathy, HTN, gout, obesity, who on 11/07 p/w R foot wound of unknown extent or duration, found on imaging to have gas bubbles, and taken by podiatry for debridement on 11/07 which revealed pus down to the bone, consistent with diabetic foot ulcer complicated by cellulitis, gas gangrene, and osteomyelitis. Kept in hospital for several days awaiting finalized micro for abx rec's, and then due to devitalized tissue required 2nd operative debridement on 11/15. Diabetic foot ulcer c/b cellulitis, gas gangrene, and osteomyelitis: s/p partial 5th toe amputation on 11/[address] Munoz. Clinically doing well although does have devitalized tissue on lateral foot. Final cultures polymicrobial growing strep agalactiae, Proteus, Escherichia coli, Enterococcus faecalis, ente rococcus avium, and Staphylococcus cohnii. - Podiatry following, appreciate co-management and plans for further debridement today - ID consult, appreciate abx rec's - continue vanc, cefepime 2g iv bid, and flagyl 500 po tid, all x6w, last doses 12/25/2018 - pharmacy to dose-adjust vanc - SW assisting for home health for wound vac and IV abx - PICC inserted 11/13 [place]: c/b mild hyperkalemia, unclear etiology, vanc trough this AM not elevated - awaiting UA - holding lisinopril and lasix - repeat BMP for today still pending, to be drawn with afternoon vanc trough DM2: uncontrolled, holding orals, use basal and SSI Peripheral neuropathy: 2/2 DM2, home gabapentin 800 tid HTN: holding home lisinopril 10 and lasix 40 prn Gout: home allopurinol 100 Obesity: BMI 39 PPx: sqh FEN: NPO until surgery then resume ADA, no MIVF Lines: PICC Consults: Podiatry, ID Code: Full Dispo: home health for IV abx, possible d/c this evening if little post-op bleeding and therefore able to place wound vac, otherwise will be tomorrow Internal Medicine: Result - Labs CBC & Chem 7: 11/14/18 05:08 11/14/18 05:08 Labs: BMP 11/14/18 05:08 Sodium 134 L Potassium 5.1 Chloride 98 Carbon Dioxide 26 BUN 35 H Creatinine 1.01 Glucose 210 H Calcium 9.2 Consult Discharge Plan - Plan Referrals: Amarilis Hudson, VISUAL SUPERVISOR [Advanced Practice Nurse] - 11/27/18 2:40 pm NONE,PCP [Primary Care Provider] - Prescriptions: Cefepime HCl [Maxipime] 2,000 mg IVPB Q12HR #84 vial Vancomycin/0.9 % Sod Chloride [Vanco 1.25 gm/250 ml-0.9% NaCl] 1.25 gm IV Q12H #84 plast..bag
[2018-11-15] MEDS: metroNIDAZOLE 500 MG TABLET PO SCH ×3 (08:55→20:58)
[2018-11-15] MEDS: Gabapentin 300 MG CAPSULE PO SCH ×3 (08:56→20:58)
[2018-11-15] MEDS ORDERED: Propofol 500 MG/50 ML INFUS..BTL ONE (09:59)
[2018-11-15] MEDS ORDERED: Lidocaine -MPF 2% 2 ML VIAL ONE (10:01)
[2018-11-15] MEDS ORDERED: Vancomycin 1,000 MG VIAL ONE (11:13)
[2018-11-15] MEDS ORDERED: Calcium Gluconate 1,000 MG/10 ML VIAL ONE (11:14)
--- NOTE | 2018-11-15 11:45 | Operative Note ---
Date of procedure: 11/15/18 Pre-op diagnosis: right foot osteomyelitis and ulceration measuring [id number] Post-op diagnosis: same Procedure: right foot debridement of 5th metatarsal bone excisional debridement of right foot wound to the level of deep fascia/tendon/muscle Implants: none Complications: none Anesthesia: GETA Local Anesthetics: 1% Lidocaine HCL SubQ (cc) Surgeon: Theodore Munoz Was there an sound assistant present: No Estimated blood loss (cc): 5 Specimen: right 5th metatasal bone Condition: stable Disposition: PACU Procedure in Detail: Indications: 63-year-old diabetic female who underwent previous partial foot amputation for gas gangrene being brought back to the operating room for further debridement of bone as well as excisional debridement of nonviable tissue. Previous pathology identified potential osteomyelitis at the amputation margin. Nature of the procedures, risks versus benefits potential complications consequences of surgery in her condition discussed at length. It was discussed with the patient that she is high risk for limb loss. All of her questions were answered informed consent and been signed. The right lower extremity was scrubbed prepped and draped in the usual sterile fashion. 1% lidocaine plain was injected into the patient's right foot. The following procedure then began. Debridement of right fifth metatarsal bone. Attention was directed to the lateral aspect of the patient's right foot where the large wound was present with fibronecrotic tissue. The freer elevator was used to probe and find the remaining portion of the fifth metatarsal. Once identified soft tissue was freed from the end of the metatarsal bone and the sagittal saw was used to resect the bone. The remaining bone appeared viable. Excsional debridement of deep fascia/muscle/tendon. The [employer] debridement wand was utilized to remove devitalized tissue from the wound base until there was healthy granular tissue present. A #15 blade was used to resect the margin of the wound which had some necrotic tissue present. The area was probed and explored. No purulence was found or able to be expressed. Saline containing vancomycin was used to irrigate the area. The wound had been excisionally debrided through the deep fascia level and tendon had been excised. Pressure was held on the wound for a couple of minutes and adequate hemostasis was present. The perfusion team had obtain the patient's blood and spun it down to PRP and this was sprayed on to the wound bed. The wound bed at the conclusion was completely granular. Bandaging included Adaptic, 4 x 4 gauze and Kerlix. Patient tolerated the anesthesia and the procedure well and left the operating room with capillary refill time intact to the remaining digits of the right foot. Patient will return to the floor where she will continue her IV antibiotics. Patient's family member was in neuroma and she was called post procedure.
[2018-11-15] MEDS ORDERED: clonazePAM 0.5 MG TABLET PO PRN (12:11)
[2018-11-15] MEDS ORDERED: Naloxone 0.4 MG/ML INJ IVP PRN (12:11)
[2018-11-15] MEDS ORDERED: *HR* Dextrose 50 % in Water (Syg) 50 ML SYRINGE IVP PRN (12:11)
[2018-11-15] MEDS ORDERED: Dextrose Gel 15 GM/37.5 ML TUBE PO PRN ×2 (12:11)
[2018-11-15] MEDS ORDERED: OXYCODONE Oral CONC 10 MG/0.5 ML ORAL.SYG SL PRN ×2 (12:11)
[2018-11-15] MEDS ORDERED: D5% in Water 1,000 ML IVC PRN (12:11)
--- NOTE | 2018-11-15 13:21 | Infectious Disease Progress No ---
ID Progress Note Date of Encounter: 11/15/18 Time of Encounter: 13:19 - Subjective Subjective: Patient seen and examined. No acute events noted overnight. Patient states she feels well and wants to go home. Status post right foot debridement of fifth metatarsal bone and excisional debridement of right foot wound to the level of the deep fascia/tendon/muscle/ by Dr. Parker. Denies any fevers, chills, or rigors. Denies chest pain, shortness of breath, or cough. Denies nausea, vomiting, diarrhea, or constipation. She does report some loose stool and states she had a BM yesterday. Denies abdominal pain or urinary complaints. Denies oral thrush or skin rashes. - Objective CBC & Chem 7: 11/16/18 03:10 11/16/18 03:10 - Exam Vitals: Temp Pulse Resp BP Pulse Ox 98.6 F 87 18 119/72 93 11/15/18 12:43 11/15/18 12:43 11/15/18 12:43 11/15/18 12:43 11/15/18 12:43 Exam: Head: Atraumatic, normal inspection, normocephalic. Eye: EOMI, PERRLA, no scleral icterus noted. ENT: Mucous membranes moist. No odontogenic infection noted. Neck: Normal inspection, no meningismus. Respiratory: Clear to auscultation. No rales, respiratory distress, rhonchi, or wheezes noted. Cardiovascular: Regular rate and rhythm, S1 and S2 audible. No murmurs, rubs, or gallops. GI: Soft, nondistended, normal bowel sounds. Extremities:No joint swelling, pedal edema, or tenderness noted. Right foot dressing C/D/I. Neurological: Alert, oriented 3, no focal deficits. Psychiatric: normal affect, normal mood. Skin: Dry, intact, warm. Normal color. No rashes. - Assessment and Plan (1) Gas gangrene Status: Acute Location: Right foot. Likely infectious, secondary to diabetic foot ulcer. Causative organism: S. cohnii, MRSA, GBS, P. hauseri, E. coli, E. faecalis, E. avium, and anaerobic GNR. CT foot 11/07/2018 reveals right subcutaneous gas extending along the plantar lateral soft tissue. Podiatry consulted. Status post right partial fifth ray amputation, incision and drainage and removal of foreign body 11/07/18. Operative note reviewed. It appears there was a lot of purulence devitalized tissue and necrotic tissue. Intra-op 5th MTH cultures positive for GBS, P. hauseri, E. coli, E. faecalis, E. avium, and S. cohnii. Intra-op 5th proximal phalanx cultures positive for E. coli, P. hauseri, E. faecalis, E. avium, GBS, and MRSA. Status post repeat debridement 11/15/[address] Munoz. Currently on Vancomycin, Cefepime, and flagyl. SNOMED Code(s): 12849342 (2) Cellulitis Status: Acute Location: Right foot. Likely secondary to DFU and gangrene. Causative organism: polymicrobial. Improved per patient report. Currently on Vancomycin, cefepime, and flagyl. Qualifiers: Site of cellulitis: extremity Site of cellulitis of extremity: lower extremity Laterality: right Qualified Code(s): L03.115 - Cellulitis of right lower limb SNOMED Code(s): 744912391 (3) Foreign body (FB) in soft tissue Status: Acute Location: Right foot. Status post removal 11/07/18. SNOMED Code(s): 711693425, 472503661 (4) Foot ulcer due to secondary DM Status: Acute Podiatry consulted and following. SNOMED Code(s): 2786453 (5) Hypertension Status: Chronic Qualifiers: Hypertension type: essential hypertension Qualified Code(s): I10 - Essential (primary) hypertension SNOMED Code(s): 86717323 (6) Gout Status: Chronic Qualifiers: Gout site: unspecified site Gout etiology: unspecified cause Chronicity: unspecified Qualified Code(s): M10.9 - Gout, unspecified SNOMED Code(s): 22590150 (7) Diabetes mellitus type 2 in obese Status: Acute Recommend aggressive glucose monitoring and control to promote wound healing and prevent re-infection. Management per the primary team. SNOMED Code(s): 05165171 - Recommendations Recommendations: Wound care and activity per the Podiatry team. Continue Vancomycin IV. Pharmacy to dose. Goal trough ~15. Continue cefepime 2 grams IV Q12H. Continue flagyl 500mg PO TID. Duration of treatment depends on the clinical picture, but likely 6 weeks. Monitor renal function and for drug toxicity and dose-adjust antibiotics. manager creative services to assist with discharge planning. Will need weekly CBC, BUN/Cr, ESR, CRP, Vanc trough. Will need weekly PICC care per protocol. Follow up with ID 11/27/18 at 1440. Consult Discharge Plan - Plan Instructions: Cellulitis (DC), Diabetic Foot Care (DC), Debridement (DC) Referrals: Yudy Finch PAC [Physician Barkeeper] - 11/19/18 9:45 am Theodore Munzo DPM [Partnered Physician] - 11/26/18 2:00 pm (Appt. will be in the wound care center. [phone]. Thank you) Amarilis Hudson, MERCHANDISING LEAD [Advanced Practice Nurse] - 11/27/18 2:40 pm Prescriptions: metroNIDAZOLE [Flagyl] 500 mg PO TID #120 tablet Cefepime HCl [Maxipime] 2,000 mg IVPB Q12HR #84 vial Vancomycin/0.9 % Sod Chloride [Vanco 1.5 gm/250 ml-0.9% NaCl] 1.5 gm IV Q24H #40 plast..bag Allopurinol [Zyloprim 300 MG] 300 mg PO DAILY #30 tablet - Attending Attestation I have personally performed a face to face evaluation on this patient. I have reviewed and agree with the care plan. History and Exam by me shows: Assessment and plan: 1.Gas gangrene 2.Cellulitis 3.Foreign body in the soft tissue 4.Foot ulcer due to secondary diabetes mellitus 5.Hypertension 6.Gout 7.Diabetes mellitus type 2 and obese BMI 39 Recommendations: Wound care and activity per the Podiatry team. Continue Vancomycin IV. Pharmacy to dose. Goal trough ~15. Continue cefepime 2 grams IV Q12H. Continue flagyl 500mg PO TID. Duration of treatment depends on the clinical picture, but likely 6 weeks. Monitor renal function and for drug toxicity and dose-adjust antibiotics. manager creative services to assist with discharge planning. Will need weekly CBC, BUN/Cr, ESR, CRP, Vanc trough. Will need weekly PICC care per protocol. Follow up with ID 11/27/18 at 1440.
--- NOTE | 2018-11-15 15:45 | Podiatry Progress Note ---
Date of Encounter: 11/15/18 Time of Encounter: 16:00 - Assessment and Plan (1) Foreign body (FB) in soft tissue Current Visit: No Status: Acute Path reports pending (2) Abscess of right foot Current Visit: No Status: Acute Assessment: -Post op day #5 right partial 5th ray amputation, incision and drainage, removal of foreign body by Dr. Munoz on 11/07/2018 Returned today for repeat I&D Bleeding was noted post op so replacement of wound vac was held until bleeding slowed. -Non-palpable pulses, cap refill less than 3 seconds. ABIs obtained overnight. WNL, slightly diminished. -Skin warm from tibia to toes -Movement of toes noted -Intra-op cultures final Ecoli, Proteus H, Enterococcus F and A and group B strep and MRSA- patient now in contact isolation -Receiving IV antibiotics, ID onboard - Plan: Dressing removed. no further bleeding. Painted skin with allcare. white sponge placed to wound bed, covered with black simplace, draped skin with tegaderm, tracked sponge to dorsal aspect of foot and sealed to 150mmHg suction. -patient tolerated well. no leak noted - Wound vac paperwork filled out and provided to SW - Pending ATB order from ID -SW setting up [facility] -Change wound vac Monday, Monday, and Monday as ordered and place to 150mmHg suction -Nursing staff to call for any questions or concerns - Will need post operative shoe to bedside prior to discharge - please make appointment to follow up with in wound care center 1 week after discharge - Patient to call with any fevers, chills, n/v or fls. -protective weight bearing to heel only. - Patient may be discharged in AM. Spoke with hospitalist services. (3) Diabetes mellitus type 2 in obese Current Visit: Yes Status: Acute Subjective Interval history: Post op day #8 right partial 5th ray amputation, incision and drainage, removal of foreign body by Dr. Munoz on 11/07/2018 and returned to OR today for repeat I&D Patient reports she is doing well at this time. alert and oriented during my examination. Patient denies any chest pain, shortness of breath, or calf pain. She denies any fever, chills, n/v/d. Dry dressing intact without drainage s/p I&D. Objective - Vital Signs Vital Signs: Vital Signs Temp Pulse Resp BP Pulse Ox 11/15/18 15:36 98.9 F 103 16 113/72 93 11/15/18 12:43 98.6 F 87 18 119/72 93 11/15/18 11:50 97.8 F 86 16 109/69 97 11/15/18 07:41 20 94 11/15/18 07:37 97.9 F 91 17 97/60 94 11/15/18 03:53 98.3 F 99 15 127/79 93 11/14/18 22:58 98.5 F 92 14 111/61 94 11/14/18 19:05 98.5 F 93 15 116/68 95 11/14/18 16:38 98.9 F 95 17 111/57 93 Intake and Output 11/14/18 11/15/18 11/15/18 23:59 07:59 15:59 Intake Total 380 / 1240 0 / 480 480 / 480 Output Total 0 / 0 0 / 405 405 / 405 Balance 380 / 1240 0 / 75 75 / 75 Intake: IV Fluids Maxipime 2,000 MG In Water for inj. (sterile) 20 ML @ 300 mls/ hr IVP Q12HR [facility] Rx#:[id number] Oral 360 / 1200 0 / 480 480 / 480 Output: Urine 200 / 200 Urine/Stool Mix 200 / 200 Estimated Blood Loss 5 / 5 Wound Drainage 0 / 0 0 / 0 Right Foot 0 / 0 0 / 0 Other: Meal Dinner Lunch Percent of Meal Consumed 75% 100% Stool Size Moderate Small Large Stool Consistency soft soft loose liquid Stool Color Green Brown Green # Voids 1 1 1 # Bowel Movements 1 1 1 Weight 106.6 kg Blood Glucose* 243 369 Patient Weight 11/15/18 23:59 Weight 106.6 kg - Exam Exam: Constitutional: awake, alert and oriented. Tearful Vascular: 5th digit right foot amputated, non-palpable pulses, cap refill less than 3 seconds, no pain with calf squeeze Neurological: Absent protective sensation Dermatological: Surgical wound right lateral plantar aspect of foot with tendon exposed, no lymphangitis, mild expected post operative erythema noted Scant serosang drainage. 100% healthy granulation tissue. No maceration. No active bleed. No odor at this time. no appearance of cellulitis. No lymphangitis. minimal warmth. Toes warm, movement of remaining toes intact. - Lab Result Diagrams: 11/16/18 03:10 11/16/18 03:10 Labs: Abnormal lab results WBC 12.6 K/mcL (4.3-11.1) H 11/14/18 05:08 RBC 3.60 M/mcL (3.82-4.97) L 11/11/18 06:26 Hgb 10.4 g/dL (11.5-15.4) L 11/14/18 05:08 Hct 34.7 % (35.3-44.9) L 11/14/18 05:08 MCV 81.1 fL (83.0-100.0) L 11/14/18 05:08 MCH 24.3 pg (28.0-33.3) L 11/14/18 05:08 MCHC 30.0 g/dL (31.6-35.5) L 11/14/18 05:08 RDW 15.9 % (11.5-14.5) H 11/14/18 05:08 Plt Count 557 K/mcL (140-400) H 11/14/18 05:08 MPV 9.2 fL (9.4-12.4) L 11/13/18 06:22 Present (Not Present) A 11/08/18 06:22 ESR >= 130 mm/hr (0-15) H 11/13/18 06:22 Sodium 134 mEq/L (136-145) L 11/14/18 05:08 Carbon Dioxide 34 mEq/L (23-29) H 11/11/18 06:26 BUN 35 mg/dL (8-23) H 11/14/18 05:08 0.52 mg/dL (0.60-1.20) L 11/10/18 06:54 Est GFR (Non-Af Amer) 55 (> 60) L 11/14/18 05:08 35 (6-26) H 11/14/18 05:08 Glucose 210 mg/dL (70-105) H 11/14/18 05:08 POC Glucose 151 mg/dL (70-99) H 11/15/18 05:33 Calcium 8.3 mg/dL (8.6-10.3) L 11/09/18 05:01 Magnesium 1.2 mg/dL (1.6-2.6) L 11/13/18 06:22 0.2 mg/dL (0.3-1.0) L 11/13/18 06:22 20 mg/L (Less than 10) H 11/13/18 06:22 3.4 g/dL (3.5-5.7) L 11/13/18 06:22 3.6 g/dL (2.4-3.5) H 11/13/18 06:22 0.9 (1.1-2.2) L 11/13/18 06:22 Vancomycin Trough 13 mcg/mL (5-10) H 11/14/18 05:08 Microbiology, Last 48 Hours 11/08/18 00:17 Anaerobic Culture - Final Right Foot No anaerobes were recovered. 11/08/18 00:15 Anaerobic Culture - Final Right Foot Bacteroides uniformis Consult Discharge Plan - Plan Referrals: Yudy Finch PAC [Physician Computer Game Programmer] - 11/19/18 9:45 am Theodore Munoz DPM [Partnered Physician] - 11/26/18 2:00 pm (Appt. will be in the wound care center. [phone]. Thank you) Amarilis Hudson, CYCLE CONSULTANT [Advanced Practice Nurse] - 11/27/18 2:40 pm Prescriptions: metroNIDAZOLE [Flagyl] 500 mg PO TID #120 tablet Cefepime HCl [Maxipime] 2,000 mg IVPB Q12HR #84 vial Vancomycin/0.9 % Sod Chloride [Vanco 1.5 gm/250 ml-0.9% NaCl] 1.5 gm IV Q24H #40 plast..bag Allopurinol [Zyloprim 300 MG] 300 mg PO DAILY #30 tablet
[2018-11-15 17:07] LABS: Hematocrit 33.8 % (35.3-44.9); Hemoglobin 10.3 g/dL (11.5-15.4); Mean Corpuscular HGB Conc 30.5 g/dL (31.6-35.5); Mean Corpuscular Hemoglobin 24.1 pg (28.0-33.3); Mean Corpuscular Volume 79.2 fL (83.0-100.0); Mean Platelet Volume 9.6 fL (9.4-12.4); Platelet Count 580 K/mcL (140-400); Red Blood Count 4.27 M/mcL (3.82-4.97); Red Cell Distribution Width 15.9 % (11.5-14.5); White Blood Count 13.5 K/mcL (4.3-11.1)
[2018-11-15 17:25] LABS: BUN/Creatinine Ratio 41 (6-26); Blood Urea Nitrogen 30 mg/dL (8-23); Calcium 9.2 mg/dL (8.6-10.3); Carbon Dioxide 26 mEq/L (23-29); Chloride 99 mEq/L (98-107); Glucose 251 mg/dL (70-105); Osmolality,Calculated 295 (280-300); Potassium 5.3 mEq/L (3.5-5.1); Sodium 135 mEq/L (136-145); eGFR For African Americans > 60 (> 60); eGFR For Non-African Americans > 60 (> 60)
[2018-11-15 20:18] LABS: Bilirubin,Urine Negative (Negative); Blood,Urine Negative (Negative); Clarity,Urine Clear (Clear); Color,Urine Yellow (Yellow); Glucose,Urine (UA) Normal (Normal); Ketones,Urine Negative (Negative); Leukocyte Esterase,Urine Small (Negative); Nitrite,Urine Negative (Negative); Protein,Urine Negative (Neg-Trace); Specific Gravity,Urine 1.022 (1.010-1.025); Urobilinogen,Urine Normal (Normal)
[2018-11-15 20:23] LABS: Bacteria,Urine None Seen per hpf (None-Few); Hyaline Casts,Urine None Seen per lpf (None-Few); Squamous Epithelial Cell,Urine Many per lpf (None-Few); WBC,Urine 0-3 per hpf (0-3)
[2018-11-15] MEDS ORDERED: Insulin DETEMIR 100 UNIT/ML X5UNITS SQ SCH (21:00)
[2018-11-15] MEDS ORDERED: Insulin LISPRO 300 UNITS/3 ML VIAL SQ SCH (21:00)
[2018-11-16 04:14] LABS: Hematocrit 34.2 % (35.3-44.9); Hemoglobin 10.3 g/dL (11.5-15.4); Mean Corpuscular HGB Conc 30.1 g/dL (31.6-35.5); Mean Corpuscular Hemoglobin 24.1 pg (28.0-33.3); Mean Corpuscular Volume 80.1 fL (83.0-100.0); Mean Platelet Volume 9.8 fL (9.4-12.4); Platelet Count 579 K/mcL (140-400); Red Blood Count 4.27 M/mcL (3.82-4.97); Red Cell Distribution Width 16.1 % (11.5-14.5); White Blood Count 13.4 K/mcL (4.3-11.1)
[2018-11-16 04:34] LABS: Alanine Aminotransferase 16 Units/L (7-52); Albumin 3.4 g/dL (3.5-5.7); Albumin/Globulin Ratio 0.9 (1.1-2.2); Alkaline Phosphatase 72 Units/L (34-104); Aspartate Amino Transferase 12 Units/L (13-39); BUN/Creatinine Ratio 37 (6-26); Bilirubin,Direct 0.1 mg/dL (0.0-0.2); Bilirubin,Indirect 0.1 mg/dL (0.0-1.2); Bilirubin,Total 0.2 mg/dL (0.3-1.0); Blood Urea Nitrogen 28 mg/dL (8-23); C-Reactive Protein 13 mg/L (Less than 10); Calcium 9.2 mg/dL (8.6-10.3); Carbon Dioxide 23 mEq/L (23-29); Chloride 102 mEq/L (98-107); Globulin 3.6 g/dL (2.4-3.5); Glucose 173 mg/dL (70-105); Magnesium 1.6 mg/dL (1.6-2.6); Osmolality,Calculated 290 (280-300); Potassium 4.7 mEq/L (3.5-5.1); Sodium 135 mEq/L (136-145); eGFR For African Americans > 60 (> 60); eGFR For Non-African Americans > 60 (> 60)
[2018-11-16] MEDS: Cefepime HCl 2,000 MG in Water for inj. (sterile) 20 ML 20 ML IVP SCH (06:17)
[2018-11-16] MEDS: *HR* Heparin 5,000 UNIT/ML VIAL SQ SCH (06:17)
[2018-11-16] MEDS: Gabapentin 300 MG CAPSULE PO SCH (08:13)
[2018-11-16] MEDS: metroNIDAZOLE 500 MG TABLET PO SCH (08:14)
[2018-11-16] MEDS: Insulin LISPRO 300 UNITS/3 ML VIAL SQ SCH ×2 (08:15→11:44)
--- NOTE | 2018-11-16 09:50 | Physician Discharge Referral ---
Home Health/Hosp Referral Info Transfer to: Home Health Provider in Charge Post Discharge: PCP - Diagnosis (1) Osteomyelitis Priority: Primary Status: Acute - Respiratory Orders Smoking Cessation: Smoking cessation has been advised. For more information, call the [place] Tobacco Quit Line at 7-391-KUDO-NOW. - Diet/Nutrition Diet/Nutrition Orders: No Concentrated Sweets - Activity Activity Orders: Up ad bhavya ([id number] only on R foot) - Services Needed Following services are medically necessary services: Nursing (wound care and IV abx infusions), Physical Therapy - Transfer Medications Prescriptions: metroNIDAZOLE [Flagyl] 500 mg PO TID #120 tablet Cefepime HCl [Maxipime] 2,000 mg IVPB Q12HR #84 vial Vancomycin/0.9 % Sod Chloride [Vanco 1.5 gm/250 ml-0.9% NaCl] 1.5 gm IV Q24H #40 plast..bag Allopurinol [Zyloprim 300 MG] 300 mg PO DAILY #30 tablet Home Medications: Albuterol Sulfate [Albuterol Inhaler] 2 puff IH Q4H PRN 11/09/18 [History] Amitriptyline [Elavil] 50 - 100 mg PO HS PRN 11/09/18 [History] Atorvastatin Calcium [Lipitor] 20 mg PO DAILY 11/09/18 [History] Cholecalciferol (Vitamin D3) [Vitamin D3] 10,000 unit PO DAILY 11/09/18 [History] Ferrous Sulfate [Iron] 325 mg PO BID 11/09/18 [History] Furosemide [Lasix] 20 mg PO DAILY 11/09/18 [History] Meloxicam 15 mg PO DAILY 11/09/18 [History] Montelukast [Singulair] 10 mg PO QPM 11/09/18 [History] Oxybutynin [Ditropan] 5 mg PO BID 11/09/18 [History] Sertraline [Zoloft] 50 mg PO DAILY 11/09/18 [History] Tiotropium [place] [Spiriva Respimat] 2 puff IH DAILY 11/09/18 [History] clonazePAM [Clonazepam] 0.25 - 0.5 mg PO BID PRN 11/09/18 [History] Cefepime HCl [Maxipime] 2,000 mg IVPB Q12HR #84 vial 06/18/19 [Rx] Allopurinol [Zyloprim 300 MG] 300 mg PO DAILY #30 tablet 11/16/18 [Rx] Gabapentin [Neurontin] 800 mg PO TID #0 11/16/18 [Rx] Vancomycin/0.9 % Sod Chloride [Vanco 1.5 gm/250 ml-0.9% NaCl] 1.5 gm IV Q24H #40 plast..bag 11/16/18 [Rx] metFORMIN [Glucophage] 500 mg PO BID #0 11/16/18 [Rx] metroNIDAZOLE [Flagyl] 500 mg PO TID #120 tablet 11/16/18 [Rx] Allergies/Adverse Reactions: Allergy/AdvReac Type Severity Reaction Status Date / Time No Known Allergies Allergy Verified 11/09/18 16:37 Certification: Further, I certify that my clinical findings support that this patient is homebound (i.e. absences from home require considerable and taxing effort and ar e for medical reasons or faith services or infrequently or short duration when for other reasons) because: Homebound Reason: Leaving home requires considerable and taxing effort due to condition Attestation: My signature below is to certify that this patient is under my care and that I, or nurse practitioner, or a physician's health care legal assistant working with me, has a [id number] encounter with this patient.
[2018-11-16] MEDS ORDERED: Tiotropium 18 MCG inhalation IH SCH (10:00)
[2018-11-16 10:20] VITALS: BP 98/60
--- NOTE | 2018-11-16 11:09 | Infectious Disease Progress No ---
ID Progress Note Date of Encounter: 11/16/18 Time of Encounter: 10:50 - Subjective Subjective: Patient seen and examined sitting up in the bedside chair. No acute events noted overnight. Patient states she feels well and wants to go home. Status post right foot debridement of fifth metatarsal bone and excisional debridement of right foot wound to the level of the deep fascia/tendon/muscle 10/15/[address] Parker. Denies any fevers, chills, or rigors. Denies chest pain, shortness of breath, or cough. Denies nausea, vomiting, diarrhea, or constipation. She does report some loose stool and states she had a BM yesterday. Denies abdominal pain or urinary complaints. Denies oral thrush or skin rashes. - Objective CBC & Chem 7: 11/16/18 03:10 11/16/18 03:10 - Exam Vitals: Temp Pulse Resp BP Pulse Ox 97.9 F 94 17 98/60 94 11/16/18 10:14 11/16/18 10:14 11/16/18 10:20 11/16/18 10:14 11/16/18 10:20 Exam: Head: Atraumatic, normal inspection, normocephalic. Eye: EOMI, PERRLA, no scleral icterus noted. ENT: Mucous membranes moist. No odontogenic infection noted. Neck: Normal inspection, no meningismus. Respiratory: Clear to auscultation. No rales, respiratory distress, rhonchi, or wheezes noted. Cardiovascular: Regular rate and rhythm, S1 and S2 audible. No murmurs, rubs, or gallops. GI: Soft, nondistended, normal bowel sounds. Extremities: No joint swelling, pedal edema, or tenderness noted. Right foot dressing C/D/I with wound VAC intact. Neurological: Alert, oriented 3, no focal deficits. Psychiatric: normal affect, normal mood. Skin: Dry, intact, warm. Normal color. No rashes. - Assessment and Plan (1) Gas gangrene Current Visit: No Status: Acute Location: Right foot. Likely infectious, secondary to diabetic foot ulcer. Causative organism: S. cohnii, MRSA, GBS, P. hauseri, E. coli, E. faecalis, E. avium, and anaerobic GNR. CT foot 11/07/2018 reveals right subcutaneous gas extending along the plantar lateral soft tissue. Podiatry consulted. Status post right partial fifth ray amputation, incision and drainage and removal of foreign body 11/07/18. Operative note reviewed. It appears there was a lot of purulence devitalized tissue and necrotic tissue. Intra-op 5th MTH cultures positive for GBS, P. hauseri, E. coli, E. faecalis, E. avium, and S. cohnii. Intra-op 5th proximal phalanx cultures positive for E. coli, P. hauseri, E. faecalis, E. avium, GBS, and MRSA. Status post repeat debridement 11/15/[address] Munoz. Currently on Vancomycin, Cefepime, and flagyl. SNOMED Code(s): 22317553 (2) Cellulitis Current Visit: No Status: Acute Location: Right foot. Likely secondary to DFU and gangrene. Causative organism: polymicrobial. Improved per patient report. Currently on Vancomycin, cefepime, and flagyl. Qualifiers: Site of cellulitis: extremity Site of cellulitis of extremity: lower extremity Laterality: right Qualified Code(s): L03.115 - Cellulitis of right lower limb SNOMED Code(s): 528541815 (3) Foreign body (FB) in soft tissue Current Visit: No Status: Acute Location: Right foot. Status post removal 11/07/18. SNOMED Code(s): 888372797, 944696710 (4) Foot ulcer due to secondary DM Current Visit: No Status: Acute Podiatry consulted and following. SNOMED Code(s): 0550216 (5) Hypertension Current Visit: Yes Status: Chronic Qualifiers: Hypertension type: essential hypertension Qualified Code(s): I10 - Essential (primary) hypertension SNOMED Code(s): 71592103 (6) Gout Current Visit: Yes Status: Chronic Qualifiers: Gout site: unspecified site Gout etiology: unspecified cause Chronicity: unspecified Qualified Code(s): M10.9 - Gout, unspecified SNOMED Code(s): 84856145 (7) Diabetes mellitus type 2 in obese Current Visit: Yes Status: Acute Recommend aggressive glucose monitoring and control to promote wound healing and prevent re-infection. Management per the primary team. SNOMED Code(s): 49664620 - Recommendations Recommendations: Wound care and activity per the Podiatry team. Continue Vancomycin IV. Pharmacy to dose. Goal trough ~15. Continue cefepime 2 grams IV Q12H. Continue flagyl 500mg PO TID. Duration of treatment depends on the clinical picture, but likely 6 weeks. Monitor renal function and for drug toxicity and dose-adjust antibiotics. health services rn to assist with discharge planning. Will need weekly CBC, BUN/Cr, ESR, CRP, Vanc trough. Will need weekly PICC care per protocol. Follow up with ID 11/27/18 at 1440. Consult Discharge Plan - Plan Referrals: Yudy Finch, [place] [Physician Spray Maker] - 11/19/18 9:45 am Theodore Munoz DPM [Partnered Physician] - (1 week) Amarilis Hudson CNP [Advanced Practice Nurse] - 11/27/18 2:40 pm Prescriptions: metroNIDAZOLE [Flagyl] 500 mg PO TID #120 tablet Cefepime HCl [Maxipime] 2,000 mg IVPB Q12HR #84 vial Vancomycin/0.9 % Sod Chloride [Vanco 1.5 gm/250 ml-0.9% NaCl] 1.5 gm IV Q24H #40 plast..bag Allopurinol [Zyloprim 300 MG] 300 mg PO DAILY #30 tablet
[2018-11-16] MEDS ORDERED: Aminoglycoside Consult 1 EACH MC ONE (15:13)
== END 2018-11-16 15:14 | disposition home health service (06) | DRG 305 ==
LOC: 3ANU → SUATTDRO 11-08 12:09
PROVIDERS: ADMIT Internal Medicine; ATTEND Internal Medicine

== ENCOUNTER 2019-04-14 11:18 | Inpatient (IN) ==
[2019-04-14] MEDS ORDERED: 0.9 % Sodium Chloride 1,000 ML IVC ONE ×3 (11:40→21:54)
[2019-04-14 12:42] LABS: Basophils % 0.2 %; Hematocrit 28.9 % (35.3-44.9); Hemoglobin 9.4 g/dL (11.5-15.4); Immature Granulocytes % 1.7 % (0-4); Immature Platelets 8.8 % (1.1-6.1); Lymphocytes # 0.7 K/mcL (0.6-4.6); Lymphocytes % 5.7 %; Mean Corpuscular HGB Conc 32.5 g/dL (31.6-35.5); Mean Corpuscular Hemoglobin 25.5 pg (28.0-33.3); Mean Corpuscular Volume 78.3 fL (83.0-100.0); Mean Platelet Volume 11.5 fL (9.4-12.4); Monocytes # 0.8 K/mcL (0.0-1.3); Monocytes % 6.8 %; Neutrophils # 9.8 K/mcL (1.6-8.9); Platelet Count 101 K/mcL (140-400); Red Blood Count 3.69 M/mcL (3.82-4.97); Red Cell Distribution Width 16.1 % (11.5-14.5); Segmented Neutrophils % 85.6 %; White Blood Count 11.5 K/mcL (4.3-11.1)
[2019-04-14 12:59] LABS: Albumin 2.8 g/dL (3.5-5.7); Albumin/Globulin Ratio 0.8 (1.1-2.2); Bilirubin,Total 0.8 mg/dL (0.3-1.0); Calcium 7.7 mg/dL (8.6-10.3); Globulin 3.4 g/dL (2.4-3.5); Potassium 4.5 mEq/L (3.5-5.1); Total Protein 6.2 g/dL (6.4-8.9)
[2019-04-14 13:04] LABS: Troponin I 0.87 ng/mL (< 0.04)
[2019-04-14 13:09] LABS: Large Platelets Present (Not Present); Platelet Estimate Decreased (Normal); Toxic Granulation Present (Not Present)
[2019-04-14] MEDS ORDERED: Aspirin 325 MG TABLET PO ONE (13:33)
[2019-04-14 15:53] LABS: INR 1.3; Prothrombin Time 14.5 Seconds (9.4-12.1)
[2019-04-14 15:58] LABS: Bilirubin,Urine Small (Negative); Blood,Urine Negative (Negative); Clarity,Urine Turbid (Clear); Color,Urine Dark Yellow (Yellow); Glucose,Urine (UA) Normal (Normal); Ketones,Urine Negative (Negative); Leukocyte Esterase,Urine Small (Negative); Nitrite,Urine Negative (Negative); Protein,Urine 30 mg/dL (Neg-Trace); Specific Gravity,Urine 1.017 (1.010-1.025); Urobilinogen,Urine Normal (Normal)
[2019-04-14 16:00] LABS: Bacteria,Urine Moderate per hpf (None-Few); Squamous Epithelial Cell,Urine Many per lpf (None-Few)
[2019-04-14] MEDS ORDERED: Isovue-370 500 ML BOTTLE IVP ONE (16:00)
[2019-04-14 16:11] LABS: Hyaline Casts,Urine Few per lpf (None-Few)
[2019-04-14 16:13] LABS: RBC,Urine 0-3 per hpf (0-3); Yeast,Urine Many per hpf (None Seen)
[2019-04-14] MEDS ORDERED: *HR* Heparin 5,000 UNIT/ML VIAL IVP ONE (16:16)
[2019-04-14] MEDS ORDERED: *HR* Heparin 5,000 UNIT/ML VIAL IVP PRN (16:16)
[2019-04-14] MEDS ORDERED: Piperacillin/Tazobactam 3.375 GM in 0.9 % Sodium Chloride Mini Bag 100 ML IVPB ONE (16:28)
[2019-04-14] MEDS ORDERED: Heparin 25,000 UNIT/250 ML D5W 25,000 UNIT/250 ML IV.SOLN IVC SCH (16:30)
[2019-04-14] MEDS ORDERED: *HR* Norepinephrine 4 MG/4 ML VIAL IVC ONE (17:13)
[2019-04-14] MEDS ORDERED: 0.9 % Sodium Chloride 250 ML ONE (17:13)
[2019-04-14] MEDS: Norepinephrine 4 MG in 0.9 % Sodium Chloride 250 ML IVC SCH ×2 (17:27→23:14)
[2019-04-14 18:16] LABS: Hematocrit 25.5 % (35.3-44.9); Hemoglobin 8.1 g/dL (11.5-15.4); Mean Corpuscular HGB Conc 31.8 g/dL (31.6-35.5); Mean Corpuscular Hemoglobin 25.6 pg (28.0-33.3); Mean Corpuscular Volume 80.4 fL (83.0-100.0); Mean Platelet Volume 11.5 fL (9.4-12.4); Red Blood Count 3.17 M/mcL (3.82-4.97); Red Cell Distribution Width 16.1 % (11.5-14.5); White Blood Count 10.6 K/mcL (4.3-11.1)
[2019-04-14 18:18] LABS: Platelet Count 92 K/mcL (140-400)
[2019-04-14 18:19] LABS: INR 1.3; Prothrombin Time 14.2 Seconds (9.4-12.1)
[2019-04-14] MEDS ORDERED: Naloxone 0.4 MG/ML INJ IVP PRN (20:59)
[2019-04-14 21:00] LABS: Calcium 7.3 mg/dL (8.6-10.3); Potassium 4.2 mEq/L (3.5-5.1)
[2019-04-14 21:05] LABS: Troponin I 0.05 ng/mL (< 0.04)
[2019-04-14] MEDS ORDERED: Albuterol 2.5 MG/3 ML NEBULIZER IH PRN (21:15)
[2019-04-14] MEDS ORDERED: Dextrose Gel 15 GM/37.5 ML TUBE PO PRN ×2 (21:17)
[2019-04-14] MEDS ORDERED: *HR* Dextrose 50 % in Water (Syg) 50 ML SYRINGE IVP PRN (21:17)
[2019-04-14] MEDS ORDERED: D5% in Water 1,000 ML IVC PRN (21:17)
[2019-04-14] MEDS ORDERED: Acetaminophen IV 500 MG/50 ML INFUS..BTL IVPB ONE (21:53)
[2019-04-14] MEDS: Ipratropium/Albuterol Neb 3 ML IH SCH (22:05)
[2019-04-14] MEDS: Nystatin POWDER 30 GM BOTTLE TP SCH (22:08)
[2019-04-14] MEDS: MethylPREDNISolone 40 MG/ML VIAL IVP SCH (23:14)
[2019-04-14] MEDS: Insulin LISPRO 300 UNITS/3 ML VIAL SQ SCH (23:20)
[2019-04-15 01:34] LABS: Basophils % 0.2 %; Hemoglobin 8.1 g/dL (11.5-15.4); Immature Granulocytes % 3.4 % (0-4); Lymphocytes # 0.7 K/mcL (0.6-4.6); Lymphocytes % 5.3 %; Mean Corpuscular HGB Conc 32.4 g/dL (31.6-35.5); Mean Corpuscular Hemoglobin 25.6 pg (28.0-33.3); Mean Corpuscular Volume 79.1 fL (83.0-100.0); Mean Platelet Volume 12.1 fL (9.4-12.4); Monocytes # 0.9 K/mcL (0.0-1.3); Monocytes % 6.6 %; Platelet Count 105 K/mcL (140-400); Red Blood Count 3.16 M/mcL (3.82-4.97); Red Cell Distribution Width 16.3 % (11.5-14.5); Segmented Neutrophils % 84.5 %
[2019-04-15 01:35] LABS: Neutrophils # 11.8 K/mcL (1.6-8.9)
[2019-04-15 01:54] LABS: Albumin 2.3 g/dL (3.5-5.7); Albumin/Globulin Ratio 0.8 (1.1-2.2); Bilirubin,Total 0.9 mg/dL (0.3-1.0); Calcium 7.1 mg/dL (8.6-10.3); Globulin 2.8 g/dL (2.4-3.5); Potassium 4.5 mEq/L (3.5-5.1); Total Protein 5.1 g/dL (6.4-8.9)
[2019-04-15 02:12] LABS: Acinetobacter baumannii by PCR Not Detected (Not Detect); Candida albicans by PCR Not Detected (Not Detect); Candida glabrata by PCR Not Detected (Not Detect); Candida krusei by PCR Not Detected (Not Detect); Candida parapsilosis by PCR Not Detected (Not Detect); Candida tropicalis by PCR Not Detected (Not Detect); Enterobacter cloacae Cmplx PCR Not Detected (Not Detect); Enterobacteriaceae by PCR Not Detected (Not Detect); Enterococcus by PCR Not Detected (Not Detect); Escherichia coli by PCR Not Detected (Not Detect); Klebsiella oxytoca by PCR Not Detected (Not Detect); Klebsiella pneumoniae by PCR Not Detected (Not Detect); Proteus by PCR Not Detected (Not Detect); Pseudomonas aeruginosa by PCR Not Detected (Not Detect); Serratia marcescens by PCR Not Detected (Not Detect); Staphylococcus aureus by PCR DETECTED (Not Detect); Streptococcus agalactiae(B)PCR Not Detected (Not Detect); Streptococcus by PCR Not Detected (Not Detect); Streptococcus pneumoniae PCR Not Detected (Not Detect); Streptococcus pyogenes (A) PCR Not Detected (Not Detect); mecA Methicillin-Resist Gene DETECTED (Not Detect)
[2019-04-15 02:18] LABS: Platelet Estimate Slight Decrease (Normal)
[2019-04-15] MEDS: *HR* Heparin 5,000 UNIT/ML VIAL IVP PRN ×2 (02:24→10:29)
[2019-04-15] MEDS: Ipratropium/Albuterol Neb 3 ML IH SCH ×3 (04:00→15:37)
[2019-04-15] MEDS ORDERED: 0.9 % Sodium Chloride 1,000 ML ONE (04:16)
[2019-04-15] MEDS ORDERED: 0.9 % Sodium Chloride 1,000 ML IVC ONE (04:16)
[2019-04-15] MEDS: MethylPREDNISolone 40 MG/ML VIAL IVP SCH ×2 (05:01→11:16)
[2019-04-15] MEDS ORDERED: Amiodarone Premix 150 MG/100 ML BAG IVPB ONE ×2 (05:17→05:23)
[2019-04-15] MEDS ORDERED: Amiodarone Premix 360 MG/200 ML BAG IVC ONE ×2 (05:17→05:23)
[2019-04-15] MEDS ORDERED: Piperacillin/Tazobactam 3.375 GM in 0.9 % Sodium Chloride Mini Bag 100 ML IVPB SCH (06:00)
[2019-04-15] MEDS: Insulin LISPRO 300 UNITS/3 ML VIAL SQ SCH ×2 (06:12→11:20)
[2019-04-15 07:56] LABS: ABG Base Excess -16 mEq/L (-2 to 3); ABG HCO3 11 mEq/L (21-27); ABG Oxygen Saturation 94 % (95-98); ABG PCO2 30 mmHg (35-45); ABG PH 7.19 pH Units (7.32-7.45); ABG PO2 85 mmHg (85-104); ABG TCO2 12 mEq/L (20-26)
[2019-04-15] MEDS ORDERED: Sodium Bicarbonate 150 MEQ in D5% in Water 1,000 ML IVC SCH (08:00)
[2019-04-15] MEDS ORDERED: Sodium Bicarbonate 50 MEQ/50 ML VIAL IVP ONE (08:54)
[2019-04-15] MEDS ORDERED: Sodium Bicarbonate 50 MEQ/50 ML VIAL ONE (08:58)
[2019-04-15] MEDS: Nystatin POWDER 30 GM BOTTLE TP SCH (09:26)
[2019-04-15] MEDS ORDERED: Perflutren Lipid Microsphere 1.3 ML in 0.9 % Sodium Chloride 8.7 ML IVP ONE (10:27)
[2019-04-15 10:34] LABS: Hematocrit 26.5 % (35.3-44.9); Hemoglobin 8.5 g/dL (11.5-15.4)
[2019-04-15 10:55] LABS: Potassium 5.1 mEq/L (3.5-5.1)
[2019-04-15] MEDS ORDERED: Amiodarone Premix 360 MG/200 ML BAG IVC SCH (11:30)
[2019-04-15 13:51] LABS: ABG Base Excess -11 mEq/L (-2 to 3); ABG HCO3 14 mEq/L (21-27); ABG Oxygen Saturation 94 % (95-98); ABG PCO2 29 mmHg (35-45); ABG PO2 77 mmHg (85-104); ABG TCO2 15 mEq/L (20-26)
[2019-04-15 14:32] VITALS: BP 90/71
[2019-04-15 14:46] LABS: Estimated Average Glucose 163 mg/dl
[2019-04-15 14:48] LABS: Hematocrit 26.4 % (35.3-44.9); Hemoglobin 8.3 g/dL (11.5-15.4)
[2019-04-15 14:54] LABS: Calcium 6.9 mg/dL (8.6-10.3); Potassium 4.6 mEq/L (3.5-5.1)
[2019-04-15] MEDS ORDERED: Aminoglycoside Consult 1 EACH MC ONE (15:36)
== END 2019-04-15 15:37 | disposition other institution (70) | DRG 720 ==
LOC: EMEROOARM 11:18 → ICNU 11:18
PROVIDERS: ADMIT Internal Medicine; ATTEND Internal Medicine

== ENCOUNTER 2019-12-15 12:34 | Inpatient (IN) ==
[2019-12-15] MEDS ORDERED: Isovue-370 500 ML BOTTLE IVP ONE (13:21)
[2019-12-15 13:35] LABS: Basophils % 0.2 %; Hematocrit 17.8 % (35.3-44.9); Mean Corpuscular HGB Conc 30.3 g/dL (31.6-35.5); Red Cell Distribution Width 18.1 % (11.5-14.5)
[2019-12-15 13:37] LABS: Eosinophils % 0.2 %; Immature Granulocytes % 3.4 % (0-4); Lymphocytes # 2.2 K/mcL (0.6-4.6); Lymphocytes % 20.7 %; Mean Corpuscular Hemoglobin 26.5 pg (28.0-33.3); Mean Corpuscular Volume 87.3 fL (83.0-100.0); Mean Platelet Volume 10.2 fL (9.4-12.4); Monocytes # 0.7 K/mcL (0.0-1.3); Monocytes % 6.5 %; Neutrophils # 7.3 K/mcL (1.6-8.9); Nucleated Red Blood Cells 0.2 /100 WBC (0); Platelet Count 503 K/mcL (140-400); Red Blood Count 2.04 M/mcL (3.82-4.97); White Blood Count 10.6 K/mcL (4.3-11.1)
[2019-12-15 13:39] LABS: Hemoglobin 5.4 g/dL (11.5-15.4)
[2019-12-15 13:41] LABS: INR 1.3; Prothrombin Time 14.7 Seconds (9.4-12.1)
[2019-12-15 13:43] LABS: Activated Partial Thrombo Time 23.2 Seconds (26.0-36.0)
[2019-12-15 13:57] LABS: Alanine Aminotransferase 3 Units/L (7-52); Albumin 2.8 g/dL (3.5-5.7); Albumin/Globulin Ratio 1.1 (1.1-2.2); Alkaline Phosphatase 63 Units/L (34-104); Anisocytosis 1+ (Not Present); Aspartate Amino Transferase 4 Units/L (13-39); BUN/Creatinine Ratio 33 (6-26); Bilirubin,Direct 0.1 mg/dL (0.0-0.2); Bilirubin,Indirect 0.4 mg/dL (0.0-1.0); Bilirubin,Total 0.5 mg/dL (0.3-1.0); Blood Urea Nitrogen 43 mg/dL (8-23); Calcium 7.9 mg/dL (8.6-10.3); Carbon Dioxide 19 mEq/L (23-29); Chloride 100 mEq/L (98-107); Globulin 2.5 g/dL (2.4-3.5); Glucose 120 mg/dL (70-105); Magnesium 1.4 mg/dL (1.6-2.6); Osmolality,Calculated 284 (280-300); Phosphorous 3.7 mg/dL (2.7-4.5); Potassium 3.5 mEq/L (3.5-5.1); Sodium 131 mEq/L (136-145); Total Protein 5.3 g/dL (6.4-8.9); eGFR For African Americans 49 (> 60); eGFR For Non-African Americans 41 (> 60)
[2019-12-15 13:58] LABS: Hypochromasia Present (Not Present); Troponin I < 0.03 ng/mL (< 0.04)
[2019-12-15] MEDS ORDERED: Furosemide 80 MG in 0.9 % Sodium Chloride 50 ML IVPB ONE (15:33)
[2019-12-15] MEDS ORDERED: Naloxone 0.4 MG/ML INJ IVP PRN (16:00)
[2019-12-15] MEDS ORDERED: *HR* Promethazine 25 MG/ML VIAL IVP PRN (16:00)
[2019-12-15 16:05] LABS: Bilirubin,Urine Negative (Negative); Blood,Urine Trace (Negative); Clarity,Urine Clear (Clear); Color,Urine Light-Yellow (Yellow); Glucose,Urine (UA) Normal (Normal); Ketones,Urine 10 mg/dL (Negative); Leukocyte Esterase,Urine Negative (Negative); Mucus,Urine Few per lpf (None-Few); Nitrite,Urine Negative (Negative); Protein,Urine Negative (Neg-Trace); RBC,Urine 0-3 per hpf (0-3); Specific Gravity,Urine 1.014 (1.010-1.025); Squamous Epithelial Cell,Urine Few per hpf (None-Few); Urobilinogen,Urine Normal (Normal); WBC,Urine 0-3 per hpf (0-3)
[2019-12-15] MEDS ORDERED: 0.9 % Sodium Chloride 1,000 ML ONE (16:52)
[2019-12-15] MEDS ORDERED: SODIUM CHLORIDE/NAHCO3/KCL/PEG 4,000 ML SOLN.RECON PO ONE (17:01)
[2019-12-15 17:33] LABS: Adenovirus Not Detected (Not Detect); Bordetella Pertussis Not Detected (Not Detect); Chlamydophila pneumoniae Not Detected (Not Detect); Coronavirus 229E Not Detected (Not Detect); Coronavirus HKU1 Not Detected (Not Detect); Coronavirus NL63 Not Detected (Not Detect); Coronavirus OC43 Not Detected (Not Detect); Human Metapneumovirus Not Detected (Not Detect); Human Rhinovirus/Enterovirus Not Detected (Not Detect); Influenza A Subtype 2009 H1 Not Detected (Not Detect); Influenza B Not Detected (Not Detect); Mycoplasma pneumoniae Not Detected (Not Detect); Parainfluenza Virus 1 Not Detected (Not Detect); Parainfluenza Virus 2 Not Detected (Not Detect); Parainfluenza Virus 3 Not Detected (Not Detect); Parainfluenza Virus 4 Not Detected (Not Detect); Respiratory Syncytial Virus Not Detected (Not Detect)
[2019-12-15 17:34] LABS: SARS-CoV-2 Not Detected (Not Detect)
[2019-12-15] MEDS: allopurinoL 100 MG TABLET PO SCH (20:11)
[2019-12-15] MEDS: Pantoprazole 40 MG VIAL IVP SCH (20:11)
[2019-12-15 22:18] LABS: Hematocrit 19.9 % (35.3-44.9); Hemoglobin 6.2 g/dL (11.5-15.4); Mean Corpuscular HGB Conc 31.2 g/dL (31.6-35.5); Mean Corpuscular Hemoglobin 26.6 pg (28.0-33.3); Mean Corpuscular Volume 85.4 fL (83.0-100.0); Mean Platelet Volume 9.6 fL (9.4-12.4); Platelet Count 432 K/mcL (140-400); Red Blood Count 2.33 M/mcL (3.82-4.97); Red Cell Distribution Width 17.3 % (11.5-14.5); White Blood Count 9.5 K/mcL (4.3-11.1)
[2019-12-15] MEDS ORDERED: 0.9 % Sodium Chloride 250 ML ONE (22:53)
[2019-12-16 04:58] LABS: Hematocrit 23.3 % (35.3-44.9); Hemoglobin 7.4 g/dL (11.5-15.4); Mean Corpuscular HGB Conc 31.8 g/dL (31.6-35.5); Mean Corpuscular Hemoglobin 27.1 pg (28.0-33.3); Mean Corpuscular Volume 85.3 fL (83.0-100.0); Mean Platelet Volume 10.8 fL (9.4-12.4); Platelet Count 326 K/mcL (140-400); Red Blood Count 2.73 M/mcL (3.82-4.97); Red Cell Distribution Width 17.1 % (11.5-14.5); White Blood Count 7.6 K/mcL (4.3-11.1)
[2019-12-16 05:07] LABS: Calcium 7.6 mg/dL (8.6-10.3); Potassium 3.4 mEq/L (3.5-5.1)
[2019-12-16] MEDS: Pantoprazole 40 MG VIAL IVP SCH ×2 (06:07→17:01)
[2019-12-16] MEDS: allopurinoL 100 MG TABLET PO SCH ×3 (08:35→20:34)
[2019-12-16] MEDS: Tiotropium 18 MCG inhalation IH SCH (09:54)
[2019-12-16] MEDS ORDERED: *HR* FentaNYL (PF) 100 MCG/2 ML VIAL ONE (12:46)
[2019-12-16] MEDS ORDERED: Lidocaine -MPF 4% 5 ML AMPUL ONE (12:46)
[2019-12-16] MEDS ORDERED: *HR* Propofol 200 MG/20 ML VIAL IVP ONE ×2 (12:46→13:53)
[2019-12-16] MEDS ORDERED: *HR* Etomidate 40 MG/20 ML VIAL IVP ONE (14:43)
[2019-12-16] MEDS ORDERED: Ondansetron 4 MG/2 ML VIAL ONE (14:44)
[2019-12-16] MEDS ORDERED: Dexamethasone 4 MG/ML VIAL ONE (14:44)
[2019-12-16] MEDS ORDERED: *HR* Dextrose 50 % in Water (Vial) 50 ML VIAL IVP PRN (18:21)
[2019-12-16] MEDS ORDERED: Dextrose Gel 15 GM/37.5 ML TUBE PO PRN ×2 (18:21)
[2019-12-16] MEDS ORDERED: D5% in Water 1,000 ML IVC PRN (18:21)
[2019-12-16] MEDS ORDERED: Ipratropium/Albuterol Neb 3 ML IH PRN (18:23)
[2019-12-17 05:59] LABS: Basophils % 0.2 %; Hematocrit 24.7 % (35.3-44.9); Hemoglobin 7.4 g/dL (11.5-15.4); Immature Granulocytes % 1.9 % (0-4); Lymphocytes # 1.1 K/mcL (0.6-4.6); Lymphocytes % 18.3 %; Mean Corpuscular Hemoglobin 26.2 pg (28.0-33.3); Mean Corpuscular Volume 87.6 fL (83.0-100.0); Mean Platelet Volume 10.1 fL (9.4-12.4); Monocytes # 0.4 K/mcL (0.0-1.3); Monocytes % 7.6 %; Neutrophils # 4.2 K/mcL (1.6-8.9); Nucleated Red Blood Cells 0.3 /100 WBC (0); Platelet Count 342 K/mcL (140-400); Red Blood Count 2.82 M/mcL (3.82-4.97); Red Cell Distribution Width 16.9 % (11.5-14.5); White Blood Count 5.8 K/mcL (4.3-11.1)
[2019-12-17] MEDS: Insulin LISPRO 300 UNITS/3 ML VIAL SQ SCH ×4 (06:17→18:21)
[2019-12-17] MEDS: Pantoprazole 40 MG VIAL IVP SCH ×2 (06:19→18:22)
[2019-12-17 06:30] LABS: Calcium 7.5 mg/dL (8.6-10.3); Magnesium 1.7 mg/dL (1.6-2.6); Potassium 4.3 mEq/L (3.5-5.1)
[2019-12-17] MEDS: allopurinoL 100 MG TABLET PO SCH ×3 (08:25→21:16)
[2019-12-17] MEDS: Tiotropium 18 MCG inhalation IH SCH (10:51)
[2019-12-17] MEDS ORDERED: *HR* Propofol 200 MG/20 ML VIAL IVP ONE (14:20)
[2019-12-17] MEDS ORDERED: Dexamethasone 4 MG/ML VIAL ONE (14:40)
[2019-12-17] MEDS ORDERED: Ondansetron 4 MG/2 ML VIAL ONE (14:40)
[2019-12-17] MEDS: Sucralfate 1 GM TABLET PO SCH (15:26)
[2019-12-18] MEDS: Insulin LISPRO 300 UNITS/3 ML VIAL SQ SCH ×4 (00:28→17:33)
[2019-12-18] MEDS: Acetaminophen 325 MG TABLET PO PRN ×2 (00:29→16:21)
[2019-12-18] MEDS: Pantoprazole 40 MG VIAL IVP SCH (04:50)
[2019-12-18 05:54] LABS: Basophils % 0.2 %; Hematocrit 23.5 % (35.3-44.9); Immature Granulocytes % 1.4 % (0-4); Lymphocytes # 1.2 K/mcL (0.6-4.6); Lymphocytes % 18.7 %; Mean Corpuscular HGB Conc 29.8 g/dL (31.6-35.5); Mean Corpuscular Hemoglobin 26.7 pg (28.0-33.3); Mean Corpuscular Volume 89.7 fL (83.0-100.0); Mean Platelet Volume 10.7 fL (9.4-12.4); Monocytes # 0.4 K/mcL (0.0-1.3); Monocytes % 6.7 %; Neutrophils # 4.7 K/mcL (1.6-8.9); Nucleated Red Blood Cells 0.3 /100 WBC (0); Platelet Count 345 K/mcL (140-400); Red Blood Count 2.62 M/mcL (3.82-4.97); Red Cell Distribution Width 16.9 % (11.5-14.5); White Blood Count 6.4 K/mcL (4.3-11.1)
[2019-12-18 06:09] LABS: Calcium 7.3 mg/dL (8.6-10.3); Magnesium 1.6 mg/dL (1.6-2.6); Potassium 3.9 mEq/L (3.5-5.1)
[2019-12-18] MEDS: Tiotropium 18 MCG inhalation IH SCH ×2 (08:02→08:12)
[2019-12-18] MEDS: allopurinoL 100 MG TABLET PO SCH ×3 (08:15→20:38)
[2019-12-18] MEDS: Sucralfate 1 GM TABLET PO SCH ×3 (08:15→16:21)
[2019-12-18 10:13] LABS: Estimated Average Glucose 105 mg/dl; Hemoglobin A1C 5.3 %
[2019-12-18 14:27] LABS: Hematocrit 26.7 % (35.3-44.9); Hemoglobin 7.9 g/dL (11.5-15.4)
[2019-12-19 01:43] LABS: Hematocrit 25.8 % (35.3-44.9); Hemoglobin 7.6 g/dL (11.5-15.4)
[2019-12-19] MEDS: Insulin LISPRO 300 UNITS/3 ML VIAL SQ SCH ×2 (02:09→07:44)
[2019-12-19] MEDS: Tiotropium 18 MCG inhalation IH SCH (07:37)
[2019-12-19] MEDS: Sucralfate 1 GM TABLET PO SCH ×2 (08:36→12:20)
[2019-12-19] MEDS: allopurinoL 100 MG TABLET PO SCH (08:36)
[2019-12-19 10:40] LABS: Hematocrit 25.2 % (35.3-44.9); Hemoglobin 7.4 g/dL (11.5-15.4)
[2019-12-19 10:57] VITALS: BP 105/67
[2019-12-19] MEDS ORDERED: Insulin LISPRO 300 UNITS/3 ML VIAL SQ SCH ×2 (11:30→21:00)
== END 2019-12-19 15:24 | disposition home health service (06) | DRG 663 ==
LOC: EMEROOARM 12:34 → 3ANU 12:34 → SUATTDRO 17:35 → 3ANU 18:15 → SUATTDRO 12-17 15:01
PROVIDERS: ADMIT Internal Medicine; ATTEND Internal Medicine

== ENCOUNTER 2020-02-23 19:52 | Inpatient (IN) ==
[2020-02-23 20:26] LABS: Basophils % 0.4 %; Eosinophils # 0.2 K/mcL (0.0-0.6); Eosinophils % 1.9 %; Hematocrit 44.2 % (35.3-44.9); Immature Granulocytes % 0.4 % (0-4); Lymphocytes # 2.5 K/mcL (0.6-4.6); Lymphocytes % 27.7 %; Mean Corpuscular HGB Conc 29.4 g/dL (31.6-35.5); Mean Corpuscular Hemoglobin 22.6 pg (28.0-33.3); Mean Platelet Volume 10.1 fL (9.4-12.4); Monocytes # 0.6 K/mcL (0.0-1.3); Neutrophils # 5.8 K/mcL (1.6-8.9); Nucleated Red Blood Cells 0.2 /100 WBC (0); Platelet Count 322 K/mcL (140-400); Red Blood Count 5.74 M/mcL (3.82-4.97); Red Cell Distribution Width 21.3 % (11.5-14.5); Segmented Neutrophils % 63.6 %; White Blood Count 9.1 K/mcL (4.3-11.1)
[2020-02-23 20:38] LABS: INR 1.3; Prothrombin Time 14.3 Seconds (9.4-12.1)
[2020-02-23 20:40] LABS: Activated Partial Thrombo Time 28.4 Seconds (26.0-36.0)
[2020-02-23 20:44] LABS: Alanine Aminotransferase 4 Units/L (7-52); Albumin 3.9 g/dL (3.5-5.7); Albumin/Globulin Ratio 1.5 (1.1-2.2); Alkaline Phosphatase 67 Units/L (34-104); Aspartate Amino Transferase 7 Units/L (13-39); BUN/Creatinine Ratio 14 (6-26); Bilirubin,Direct 0.3 mg/dL (0.0-0.2); Bilirubin,Indirect 0.6 mg/dL (0.0-1.0); Bilirubin,Total 0.9 mg/dL (0.3-1.0); Blood Urea Nitrogen 18 mg/dL (8-23); Calcium 9.7 mg/dL (8.6-10.3); Carbon Dioxide 25 mEq/L (23-29); Chloride 106 mEq/L (98-107); Ethanol < 10 mg/dL (Less than 10); Globulin 2.6 g/dL (2.4-3.5); Glucose 137 mg/dL (70-105); Osmolality,Calculated 294 (280-300); Potassium 4.2 mEq/L (3.5-5.1); Sodium 140 mEq/L (136-145); Total Protein 6.5 g/dL (6.4-8.9); Troponin I < 0.03 ng/mL (< 0.04); eGFR For African Americans 51 (> 60); eGFR For Non-African Americans 42 (> 60)
[2020-02-23 20:46] LABS: Amphetamine Screen,Urine Negative ng/mL (Cutoff=1000); Barbiturate Screen,Urine Negative ng/mL (Cutoff=200); Benzodiazepines Screen,Urine Negative ng/mL (Cutoff=200); Cannabinoid Screen,Urine Negative ng/mL (Cutoff = 50); Cocaine Screen,Urine Negative ng/mL (Cutoff= 300); Opiate Screen,Urine Negative ng/mL (Cutoff=300); Phencyclidine Screen,Urine Negative ng/mL (Cutoff=25)
[2020-02-23 21:03] LABS: Bacteria,Urine Many per hpf (None-Few); Bilirubin,Urine Moderate (Negative); Blood,Urine Trace (Negative); Clarity,Urine Turbid (Clear); Color,Urine Yellow (Yellow); Glucose,Urine (UA) Normal (Normal); Ketones,Urine Negative (Negative); Leukocyte Esterase,Urine Small (Negative); Mucus,Urine Few per lpf (None-Few); Nitrite,Urine Negative (Negative); Protein,Urine Trace mg/dL (Neg-Trace); RBC,Urine 0-3 per hpf (0-3); Specific Gravity,Urine 1.014 (1.010-1.025); Squamous Epithelial Cell,Urine Few per hpf (None-Few); Urobilinogen,Urine Normal (Normal); WBC,Urine 0-3 per hpf (0-3)
[2020-02-23] MEDS ORDERED: cefTRIAXone 1,000 MG in Water for inj. (sterile) 10 ML IVP STA (21:41)
[2020-02-23] MEDS ORDERED: Aspirin 81 MG TAB.CHEW PO STA (22:05)
[2020-02-23 23:03] LABS: Adenovirus Not Detected (Not Detect); Bordetella Pertussis Not Detected (Not Detect); Chlamydophila pneumoniae Not Detected (Not Detect); Coronavirus 229E Not Detected (Not Detect); Coronavirus HKU1 Not Detected (Not Detect); Coronavirus NL63 Not Detected (Not Detect); Coronavirus OC43 Not Detected (Not Detect); Human Metapneumovirus Not Detected (Not Detect); Human Rhinovirus/Enterovirus Not Detected (Not Detect); Influenza A Subtype 2009 H1 Not Detected (Not Detect); Influenza B Not Detected (Not Detect); Mycoplasma pneumoniae Not Detected (Not Detect); Parainfluenza Virus 1 Not Detected (Not Detect); Parainfluenza Virus 2 Not Detected (Not Detect); Parainfluenza Virus 3 Not Detected (Not Detect); Parainfluenza Virus 4 Not Detected (Not Detect); Respiratory Syncytial Virus Not Detected (Not Detect); SARS-CoV-2 Not Detected (Not Detect)
[2020-02-24] MEDS ORDERED: Naloxone 0.4 MG/ML INJ IVP PRN (00:21)
[2020-02-24] MEDS ORDERED: D5% in Water 1,000 ML IVC PRN (00:23)
[2020-02-24] MEDS ORDERED: *HR* Dextrose 50 % in Water (Vial) 50 ML VIAL IVP PRN (00:23)
[2020-02-24] MEDS ORDERED: Dextrose Gel 15 GM/37.5 ML TUBE PO PRN ×2 (00:23)
[2020-02-24] MEDS ORDERED: Perflutren Lipid Microsphere 1.3 ML in 0.9 % Sodium Chloride 8.7 ML IVP PRN (01:16)
[2020-02-24 01:59] LABS: Hematocrit 44.5 % (35.3-44.9); Mean Corpuscular HGB Conc 29.2 g/dL (31.6-35.5); Mean Corpuscular Hemoglobin 23.2 pg (28.0-33.3); Mean Corpuscular Volume 79.3 fL (83.0-100.0); Mean Platelet Volume 10.2 fL (9.4-12.4); Platelet Count 258 K/mcL (140-400); Red Blood Count 5.61 M/mcL (3.82-4.97); Red Cell Distribution Width 21.2 % (11.5-14.5)
[2020-02-24] MEDS ORDERED: *HR* Promethazine 25 MG/ML VIAL IVP PRN (02:06)
[2020-02-24] MEDS ORDERED: 0.9 % Sodium Chloride 1,000 ML IVC SCH (02:15)
[2020-02-24 02:17] LABS: Calcium 9.1 mg/dL (8.6-10.3); Potassium 3.8 mEq/L (3.5-5.1)
[2020-02-24] MEDS: *HR* Heparin 5,000 UNIT/ML VIAL SQ SCH ×2 (06:49→17:40)
[2020-02-24] MEDS: Insulin LISPRO 300 UNITS/3 ML VIAL SQ SCH ×4 (08:29→22:19)
[2020-02-24] MEDS: Aspirin 81 MG TAB.CHEW PO SCH (08:30)
[2020-02-24] MEDS: Tiotropium 18 MCG inhalation IH SCH (10:10)
[2020-02-24] MEDS ORDERED: Gadolinium Contrast Agent (WT Based) IV PRN (11:33)
[2020-02-24 13:13] LABS: Estimated Average Glucose 105 mg/dl
[2020-02-24 14:20] LABS: Folate 14.8 ng/mL (3.0-16.0)
[2020-02-24 14:44] LABS: Chol/HDL Ratio 6.1 (0-4.9); Thyroid Stimulating Hormone 3.134 mcIU/mL (0.340-5.600)
[2020-02-24] MEDS ORDERED: Cyanocobalamin (B-12) 1,000 MCG/ML VIAL IM ONE (15:23)
[2020-02-24] MEDS: Sucralfate 1 GM TABLET PO SCH (17:40)
[2020-02-24] MEDS: allopurinoL 100 MG TABLET PO SCH (19:49)
[2020-02-24] MEDS: cefTRIAXone 1,000 MG in Water for inj. (sterile) 10 ML IVP SCH (19:50)
[2020-02-25 04:58] LABS: Calcium 8.6 mg/dL (8.6-10.3); Potassium 4.2 mEq/L (3.5-5.1)
[2020-02-25 05:10] LABS: Nucleated Red Blood Cells 0.3 /100 WBC (0)
[2020-02-25 05:36] LABS: Monocytes % 7.2 %
[2020-02-25 05:37] LABS: Basophils # 0.1 K/mcL (0.0-0.2); Basophils % 0.7 %; Eosinophils # 0.2 K/mcL (0.0-0.6); Eosinophils % 2.8 %; Hemoglobin 13.2 g/dL (11.5-15.4); Immature Granulocytes % 0.4 % (0-4); Lymphocytes # 2.6 K/mcL (0.6-4.6); Lymphocytes % 36.1 %; Mean Corpuscular HGB Conc 28.7 g/dL (31.6-35.5); Mean Platelet Volume 10.3 fL (9.4-12.4); Monocytes # 0.5 K/mcL (0.0-1.3); Neutrophils # 3.8 K/mcL (1.6-8.9); Platelet Count 237 K/mcL (140-400); Red Blood Count 5.75 M/mcL (3.82-4.97); Red Cell Distribution Width 21.5 % (11.5-14.5); Segmented Neutrophils % 52.8 %; White Blood Count 7.2 K/mcL (4.3-11.1)
[2020-02-25] MEDS: *HR* Heparin 5,000 UNIT/ML VIAL SQ SCH ×2 (05:43→17:24)
[2020-02-25 06:37] LABS: Platelet Estimate Normal (Normal); Reactive Lymphocytes Present (Not Present)
[2020-02-25] MEDS: Tiotropium 18 MCG inhalation IH SCH (07:37)
[2020-02-25] MEDS: Insulin LISPRO 300 UNITS/3 ML VIAL SQ SCH ×4 (08:14→20:13)
[2020-02-25] MEDS: Aspirin 81 MG TAB.CHEW PO SCH (08:27)
[2020-02-25] MEDS: Furosemide 20 MG TABLET PO SCH (08:27)
[2020-02-25] MEDS: Sucralfate 1 GM TABLET PO SCH ×3 (08:27→17:24)
[2020-02-25] MEDS: allopurinoL 100 MG TABLET PO SCH ×3 (08:27→20:12)
[2020-02-25] MEDS ORDERED: Metoprolol XL (24 HR) Succ 25 MG TAB.ER.24H PO SCH (14:00)
[2020-02-25] MEDS: cefTRIAXone 1,000 MG in Water for inj. (sterile) 10 ML IVP SCH (20:11)
[2020-02-25] MEDS: Nystatin Cream 15 GM TUBE TP SCH (21:18)
[2020-02-26] MEDS: Acetaminophen 325 MG TABLET PO PRN ×2 (01:55→21:00)
[2020-02-26 05:42] LABS: Mean Platelet Volume 10.4 fL (9.4-12.4)
[2020-02-26 05:44] LABS: Basophils # 0.1 K/mcL (0.0-0.2); Basophils % 0.7 %; Eosinophils # 0.2 K/mcL (0.0-0.6); Eosinophils % 2.1 %; Hematocrit 45.5 % (35.3-44.9); Hemoglobin 12.8 g/dL (11.5-15.4); Immature Granulocytes % 0.4 % (0-4); Lymphocytes % 34.4 %; Mean Corpuscular HGB Conc 28.1 g/dL (31.6-35.5); Mean Corpuscular Hemoglobin 22.1 pg (28.0-33.3); Mean Corpuscular Volume 78.7 fL (83.0-100.0); Monocytes # 0.5 K/mcL (0.0-1.3); Monocytes % 6.9 %; Neutrophils # 4.3 K/mcL (1.6-8.9); Platelet Count 265 K/mcL (140-400); Red Blood Count 5.78 M/mcL (3.82-4.97); Red Cell Distribution Width 20.7 % (11.5-14.5); Segmented Neutrophils % 55.5 %; White Blood Count 7.7 K/mcL (4.3-11.1)
[2020-02-26 05:54] LABS: Calcium 9.3 mg/dL (8.6-10.3); Potassium 4.2 mEq/L (3.5-5.1)
[2020-02-26 06:00] LABS: Lymphocytes # 2.7 K/mcL (0.6-4.6)
[2020-02-26] MEDS: *HR* Heparin 5,000 UNIT/ML VIAL SQ SCH ×2 (06:10→17:16)
[2020-02-26 06:27] LABS: Anisocytosis 1+ (Not Present); Platelet Estimate Normal (Normal); Target Cells 1+ (Not Present)
[2020-02-26] MEDS: Tiotropium 18 MCG inhalation IH SCH (07:39)
[2020-02-26] MEDS: Insulin LISPRO 300 UNITS/3 ML VIAL SQ SCH ×4 (08:48→20:46)
[2020-02-26] MEDS: Nystatin Cream 15 GM TUBE TP SCH ×2 (08:50→20:50)
[2020-02-26] MEDS: Aspirin 81 MG TAB.CHEW PO SCH (08:50)
[2020-02-26] MEDS: Sucralfate 1 GM TABLET PO SCH ×3 (08:50→17:16)
[2020-02-26] MEDS: Furosemide 20 MG TABLET PO SCH (08:50)
[2020-02-26] MEDS: lisinopriL 5 MG TABLET PO SCH (11:27)
[2020-02-26] MEDS: cefTRIAXone 1,000 MG in Water for inj. (sterile) 10 ML IVP SCH (20:49)
[2020-02-27] MEDS: *HR* Heparin 5,000 UNIT/ML VIAL SQ SCH ×2 (05:13→18:10)
[2020-02-27] MEDS: Tiotropium 18 MCG inhalation IH SCH (07:49)
[2020-02-27 08:43] LABS: Basophils % 0.5 %; Eosinophils # 0.1 K/mcL (0.0-0.6); Eosinophils % 1.5 %; Hematocrit 43.8 % (35.3-44.9); Hemoglobin 12.9 g/dL (11.5-15.4); Immature Granulocytes % 0.4 % (0-4); Lymphocytes % 27.9 %; Mean Corpuscular HGB Conc 29.5 g/dL (31.6-35.5); Mean Corpuscular Hemoglobin 23.1 pg (28.0-33.3); Mean Corpuscular Volume 78.4 fL (83.0-100.0); Mean Platelet Volume 10.4 fL (9.4-12.4); Monocytes # 0.4 K/mcL (0.0-1.3); Monocytes % 5.9 %; Neutrophils # 4.6 K/mcL (1.6-8.9); Nucleated Red Blood Cells 0.3 /100 WBC (0); Platelet Count 273 K/mcL (140-400); Red Blood Count 5.59 M/mcL (3.82-4.97); Red Cell Distribution Width 20.7 % (11.5-14.5); Segmented Neutrophils % 63.8 %; White Blood Count 7.3 K/mcL (4.3-11.1)
[2020-02-27 09:03] LABS: Magnesium 1.4 mg/dL (1.6-2.6); Potassium 3.2 mEq/L (3.5-5.1)
[2020-02-27] MEDS: Insulin LISPRO 300 UNITS/3 ML VIAL SQ SCH ×4 (09:47→21:21)
[2020-02-27] MEDS: lisinopriL 5 MG TABLET PO SCH (10:16)
[2020-02-27] MEDS: Aspirin 81 MG TAB.CHEW PO SCH (10:17)
[2020-02-27] MEDS: Sucralfate 1 GM TABLET PO SCH ×3 (10:17→18:10)
[2020-02-27] MEDS: Furosemide 20 MG TABLET PO SCH (10:17)
[2020-02-27] MEDS: Nystatin Cream 15 GM TUBE TP SCH ×2 (10:18→21:36)
[2020-02-27] MEDS: Cefdinir 300 MG CAPSULE PO SCH ×2 (14:15→21:22)
[2020-02-28 03:14] LABS: Basophils # 0.1 K/mcL (0.0-0.2); Basophils % 0.7 %; Eosinophils # 0.1 K/mcL (0.0-0.6); Eosinophils % 1.5 %; Hematocrit 40.7 % (35.3-44.9); Immature Granulocytes % 0.4 % (0-4); Lymphocytes # 2.3 K/mcL (0.6-4.6); Lymphocytes % 32.4 %; Mean Corpuscular HGB Conc 29.5 g/dL (31.6-35.5); Mean Corpuscular Hemoglobin 22.9 pg (28.0-33.3); Mean Corpuscular Volume 77.8 fL (83.0-100.0); Mean Platelet Volume 10.2 fL (9.4-12.4); Monocytes # 0.5 K/mcL (0.0-1.3); Monocytes % 7.2 %; Neutrophils # 4.2 K/mcL (1.6-8.9); Platelet Count 286 K/mcL (140-400); Red Blood Count 5.23 M/mcL (3.82-4.97); Red Cell Distribution Width 20.5 % (11.5-14.5); Segmented Neutrophils % 57.8 %; White Blood Count 7.2 K/mcL (4.3-11.1)
[2020-02-28 03:23] LABS: INR 1.2; Prothrombin Time 13.2 Seconds (9.4-12.1)
[2020-02-28 03:35] LABS: Potassium 4.2 mEq/L (3.5-5.1)
[2020-02-28] MEDS: *HR* Heparin 5,000 UNIT/ML VIAL SQ SCH (05:12)
[2020-02-28] MEDS: Acetaminophen 325 MG TABLET PO PRN (05:14)
[2020-02-28] MEDS: Furosemide 20 MG TABLET PO SCH (07:51)
[2020-02-28] MEDS: Aspirin 81 MG TAB.CHEW PO SCH (07:51)
[2020-02-28] MEDS: Cefdinir 300 MG CAPSULE PO SCH ×2 (07:51→21:23)
[2020-02-28] MEDS: Sucralfate 1 GM TABLET PO SCH ×3 (07:51→17:44)
[2020-02-28] MEDS: lisinopriL 5 MG TABLET PO SCH (07:52)
[2020-02-28] MEDS: Insulin LISPRO 300 UNITS/3 ML VIAL SQ SCH ×4 (07:52→21:18)
[2020-02-28] MEDS: Nystatin Cream 15 GM TUBE TP SCH ×3 (07:52→21:47)
[2020-02-28] MEDS: Tiotropium 18 MCG inhalation IH SCH (07:59)
[2020-02-28] MEDS ORDERED: Lidocaine -MPF 2% 2 ML VIAL ONE (09:40)
[2020-02-29 00:58] LABS: Basophils % 0.5 %; Eosinophils # 0.1 K/mcL (0.0-0.6); Eosinophils % 1.3 %; Hematocrit 40.4 % (35.3-44.9); Hemoglobin 11.8 g/dL (11.5-15.4); Immature Granulocytes % 0.5 % (0-4); Lymphocytes # 2.2 K/mcL (0.6-4.6); Mean Corpuscular HGB Conc 29.2 g/dL (31.6-35.5); Mean Corpuscular Hemoglobin 22.4 pg (28.0-33.3); Mean Corpuscular Volume 76.7 fL (83.0-100.0); Monocytes # 0.6 K/mcL (0.0-1.3); Monocytes % 7.7 %; Neutrophils # 5.2 K/mcL (1.6-8.9); Nucleated Red Blood Cells 0.2 /100 WBC (0); Platelet Count 298 K/mcL (140-400); Red Blood Count 5.27 M/mcL (3.82-4.97); Red Cell Distribution Width 20.2 % (11.5-14.5); White Blood Count 8.3 K/mcL (4.3-11.1)
[2020-02-29 01:14] LABS: Calcium 8.6 mg/dL (8.6-10.3); Magnesium 1.8 mg/dL (1.6-2.6); Potassium 4.7 mEq/L (3.5-5.1)
[2020-02-29] MEDS: Cefdinir 300 MG CAPSULE PO SCH (07:39)
[2020-02-29] MEDS: Sucralfate 1 GM TABLET PO SCH ×2 (07:39→12:48)
[2020-02-29] MEDS: Furosemide 20 MG TABLET PO SCH (07:39)
[2020-02-29] MEDS: Aspirin 81 MG TAB.CHEW PO SCH (07:39)
[2020-02-29] MEDS: lisinopriL 5 MG TABLET PO SCH (07:39)
[2020-02-29] MEDS: Tiotropium 18 MCG inhalation IH SCH (07:54)
[2020-02-29] MEDS: Insulin LISPRO 300 UNITS/3 ML VIAL SQ SCH ×2 (09:00→12:48)
[2020-02-29] MEDS: Nystatin Cream 15 GM TUBE TP SCH (12:48)
[2020-02-29 14:08] VITALS: BP 101/72
== END 2020-02-29 17:16 | disposition home health service (06) | DRG 58 ==
LOC: EMEROOARM 19:52 → 3ANU 19:52 → SUATTDRO 23:27 → 3ANU 02-24 00:51
PROVIDERS: ADMIT Student in an Organized Health Care Education/Training Program; ATTEND Internal Medicine
PROC: ENDOEBX (2020-02-28 13:00)

== ENCOUNTER 2020-12-27 17:34 | Inpatient (IN) ==
[2020-12-27] MEDS ORDERED: Acetaminophen 325 MG TABLET PO PRN (21:10)
[2020-12-27] MEDS ORDERED: Naloxone 0.4 MG/ML INJ IVP PRN (21:10)
[2020-12-27] MEDS ORDERED: *HR* Dextrose 50 % in Water (Vial) 50 ML VIAL ONE (22:17)
[2020-12-27] MEDS ORDERED: D5% in Water 1,000 ML IVC PRN (22:25)
[2020-12-27] MEDS ORDERED: Dextrose Gel 15 GM/37.5 ML TUBE PO PRN ×2 (22:25)
[2020-12-27] MEDS: 0.9 % Sodium Chloride 1,000 ML IVC SCH (22:39)
[2020-12-27] MEDS: *HR* Dextrose 50 % in Water (Vial) 50 ML VIAL IVP PRN ×2 (22:40→22:42)
[2020-12-27 22:44] LABS: Magnesium 1.5 mg/dL (1.6-2.6)
[2020-12-27 22:45] LABS: Troponin I < 0.03 ng/mL (< 0.04)
[2020-12-27] MEDS: Pantoprazole 40 MG VIAL IVP SCH (22:51)
[2020-12-27] MEDS: Insulin LISPRO 300 UNITS/3 ML VIAL SUBQ SCH (22:52)
[2020-12-27 22:53] LABS: Calcium 8.1 mg/dL (8.6-10.3); Potassium 5.7 mEq/L (3.5-5.1)
[2020-12-27] MEDS ORDERED: Calcium Gluconate 1gm/50mL 1 GM/50 ML BAG IVPB ONE (23:41)
[2020-12-27] MEDS ORDERED: Sodium Bicarbonate 150 MEQ in Water for inj. (sterile) 1,000 ML IVC SCH (23:50)
[2020-12-27] MEDS ORDERED: Magnesium Sulfate 1 GM/102 ML PIGGYBACK IVPB ONE (23:56)
[2020-12-28] MEDS ORDERED: Albumin 25% 25gram/100mL 25 GM/100 ML IV.SOLN IVPB ONE ×2 (01:58→04:57)
[2020-12-28 02:02] LABS: Basophils # 0.1 K/mcL (0.0-0.2); Basophils % 0.5 %; Hematocrit 35.8 % (35.3-44.9); Hemoglobin 10.4 g/dL (11.5-15.4); Immature Granulocytes % 4.1 % (0-4); Lymphocytes # 2.1 K/mcL (0.6-4.6); Lymphocytes % 10.9 %; Mean Corpuscular HGB Conc 29.1 g/dL (31.6-35.5); Mean Corpuscular Hemoglobin 28.3 pg (28.0-33.3); Mean Corpuscular Volume 97.5 fL (83.0-100.0); Mean Platelet Volume 11.4 fL (9.4-12.4); Monocytes % 5.3 %; Neutrophils # 15.2 K/mcL (1.6-8.9); Nucleated Red Blood Cells 0.3 /100 WBC (0); Platelet Count 311 K/mcL (140-400); Red Blood Count 3.67 M/mcL (3.82-4.97); Red Cell Distribution Width 14.7 % (11.5-14.5); Segmented Neutrophils % 79.2 %; White Blood Count 19.2 K/mcL (4.3-11.1)
[2020-12-28 02:25] LABS: Calcium 7.9 mg/dL (8.6-10.3); Potassium 5.8 mEq/L (3.5-5.1)
[2020-12-28 02:32] LABS: Thyroid Stimulating Hormone 3.265 mcIU/mL (0.340-5.600)
[2020-12-28] MEDS: *HR* Dextrose 50 % in Water (Vial) 50 ML VIAL IVP PRN ×2 (03:02→03:23)
[2020-12-28] MEDS: 0.9 % Sodium Chloride 1,000 ML IVC SCH (06:31)
[2020-12-28] MEDS ORDERED: Calcium Gluconate 1gm/50mL 1 GM/50 ML BAG IVPB ONE (07:41)
[2020-12-28 08:10] LABS: Estimated Average Glucose 114 mg/dl; Hemoglobin A1C 5.6 %
[2020-12-28] MEDS: Insulin LISPRO 300 UNITS/3 ML VIAL SUBQ SCH ×3 (08:55→16:44)
[2020-12-28] MEDS: Pantoprazole 40 MG VIAL IVP SCH (09:03)
[2020-12-28] MEDS: cefTRIAXone 1,000 MG in 0.9 % Sodium Chloride Mini Bag 100 ML IVPB SCH (09:03)
[2020-12-28 09:33] LABS: Albumin 3.8 g/dL (3.5-5.7); Calcium 7.6 mg/dL (8.6-10.3); Phosphorous 8.5 mg/dL (2.7-4.5); Potassium 5.3 mEq/L (3.5-5.1); Uric Acid 5.5 mg/dL (2.3-7.6)
[2020-12-28 10:27] LABS: Potassium,Urine 15.6 mEq/L; Sodium, Urine 64.8 mEq/L
[2020-12-28] MEDS: Sodium Bicarbonate 75 MEQ in 0.45 % Sodium Chloride 1,000 ML IVC SCH (10:36)
[2020-12-28] MEDS: Budesonide/Formoterol 80/4.5 1 PUFF INH IH SCH (21:17)
[2020-12-29 04:22] LABS: Hematocrit 29.6 % (35.3-44.9); Hemoglobin 9.3 g/dL (11.5-15.4); Mean Corpuscular HGB Conc 31.4 g/dL (31.6-35.5); Mean Corpuscular Hemoglobin 28.7 pg (28.0-33.3); Mean Corpuscular Volume 91.4 fL (83.0-100.0); Mean Platelet Volume 11.4 fL (9.4-12.4); Platelet Count 234 K/mcL (140-400); Red Blood Count 3.24 M/mcL (3.82-4.97); Red Cell Distribution Width 14.7 % (11.5-14.5); White Blood Count 9.3 K/mcL (4.3-11.1)
[2020-12-29 04:30] LABS: Calcium 7.3 mg/dL (8.6-10.3); Magnesium 1.6 mg/dL (1.6-2.6)
[2020-12-29] MEDS: Budesonide/Formoterol 80/4.5 1 PUFF INH IH SCH ×2 (07:48→20:29)
[2020-12-29] MEDS: Insulin LISPRO 300 UNITS/3 ML VIAL SUBQ SCH ×3 (08:03→17:12)
[2020-12-29] MEDS: Pantoprazole 40 MG VIAL IVP SCH (08:05)
[2020-12-29] MEDS: Topiramate 25 MG TABLET PO SCH (08:05)
[2020-12-29] MEDS: Aspirin 81 MG TAB.CHEW PO SCH (08:05)
[2020-12-29] MEDS: cefTRIAXone 1,000 MG in 0.9 % Sodium Chloride Mini Bag 100 ML IVPB SCH (08:06)
[2020-12-29 15:41] LABS: Calcium 7.2 mg/dL (8.6-10.3); Potassium 5.1 mEq/L (3.5-5.1)
[2020-12-29 17:32] LABS: Phosphorous 7.5 mg/dL (2.7-4.5)
[2020-12-29] MEDS: 0.9 % Sodium Chloride 1,000 ML IVC SCH (23:57)
[2020-12-30 03:03] LABS: Hematocrit 27.5 % (35.3-44.9); Hemoglobin 8.9 g/dL (11.5-15.4); Mean Corpuscular HGB Conc 32.4 g/dL (31.6-35.5); Mean Corpuscular Hemoglobin 29.2 pg (28.0-33.3); Mean Corpuscular Volume 90.2 fL (83.0-100.0); Mean Platelet Volume 11.4 fL (9.4-12.4); Platelet Count 191 K/mcL (140-400); Red Blood Count 3.05 M/mcL (3.82-4.97); Red Cell Distribution Width 14.4 % (11.5-14.5); White Blood Count 7.2 K/mcL (4.3-11.1)
[2020-12-30 03:14] LABS: Calcium 7.2 mg/dL (8.6-10.3); Potassium 4.6 mEq/L (3.5-5.1)
[2020-12-30 07:17] LABS: ANA IgG by ELISA NONE DETECTED (None Detected)
[2020-12-30] MEDS: Insulin LISPRO 300 UNITS/3 ML VIAL SUBQ SCH ×3 (08:27→17:10)
[2020-12-30] MEDS: cefTRIAXone 1,000 MG in 0.9 % Sodium Chloride Mini Bag 100 ML IVPB SCH (08:30)
[2020-12-30] MEDS: Aspirin 81 MG TAB.CHEW PO SCH (08:31)
[2020-12-30] MEDS: Pantoprazole 40 MG VIAL IVP SCH (08:31)
[2020-12-30] MEDS: Topiramate 25 MG TABLET PO SCH (08:32)
[2020-12-30 09:12] LABS: Lambda Qnt Free Light Chains 54.37 mg/L (5.71-26.30)
[2020-12-30] MEDS: Budesonide/Formoterol 80/4.5 1 PUFF INH IH SCH ×2 (11:16→20:12)
[2020-12-30] MEDS: 0.9 % Sodium Chloride 1,000 ML IVC SCH (12:56)
[2020-12-30 13:48] LABS: Kappa Qnt Free Light Chains 75.4 mg/L (3.30-19.40)
[2020-12-30 15:14] LABS: Serine Protease-3 Antibody 0 AU/mL (0-19)
[2020-12-30] MEDS: cephALEXin 500 MG CAPSULE PO SCH (20:11)
[2020-12-31 05:36] LABS: Hematocrit 25.5 % (35.3-44.9); Hemoglobin 8.3 g/dL (11.5-15.4); Mean Corpuscular HGB Conc 32.5 g/dL (31.6-35.5); Mean Corpuscular Hemoglobin 28.8 pg (28.0-33.3); Mean Corpuscular Volume 88.5 fL (83.0-100.0); Mean Platelet Volume 11.5 fL (9.4-12.4); Platelet Count 170 K/mcL (140-400); Red Blood Count 2.88 M/mcL (3.82-4.97); White Blood Count 5.9 K/mcL (4.3-11.1)
[2020-12-31 05:39] LABS: Calcium 7.1 mg/dL (8.6-10.3); Potassium 4.4 mEq/L (3.5-5.1)
[2020-12-31] MEDS: 0.9 % Sodium Chloride 1,000 ML IVC SCH ×3 (07:06→16:32)
[2020-12-31] MEDS: Budesonide/Formoterol 80/4.5 1 PUFF INH IH SCH ×2 (07:58→19:57)
[2020-12-31] MEDS: Insulin LISPRO 300 UNITS/3 ML VIAL SUBQ SCH ×3 (08:06→17:24)
[2020-12-31] MEDS: Pantoprazole 40 MG VIAL IVP SCH (09:11)
[2020-12-31] MEDS: Topiramate 25 MG TABLET PO SCH (09:11)
[2020-12-31] MEDS: cephALEXin 500 MG CAPSULE PO SCH ×2 (09:11→20:25)
[2020-12-31] MEDS: Aspirin 81 MG TAB.CHEW PO SCH (09:11)
[2020-12-31] MEDS ORDERED: Cyanocobalamin (B-12) 1,000 MCG/ML VIAL SQ ONE (10:21)
[2020-12-31] MEDS: Sennosides/Docusate Sodium TABLET PO SCH ×2 (15:06→20:25)
[2020-12-31] MEDS: Simethicone 80 MG TAB.CHEW PO PRN (15:10)
[2020-12-31] MEDS: Sodium Bicarbonate 75 MEQ in 0.45 % Sodium Chloride 1,000 ML IVC SCH (16:42)
[2020-12-31 18:20] LABS: Alpha 2 Globulin (PEP) 0.48 g/dL (0.48-1.05); Beta Globulin (PEP) 0.49 g/dL (0.48-1.10)
[2021-01-01 04:56] LABS: Hematocrit 25.8 % (35.3-44.9); Hemoglobin 8.6 g/dL (11.5-15.4); Mean Corpuscular HGB Conc 33.3 g/dL (31.6-35.5); Mean Corpuscular Hemoglobin 29.4 pg (28.0-33.3); Mean Corpuscular Volume 88.1 fL (83.0-100.0); Mean Platelet Volume 11.2 fL (9.4-12.4); Platelet Count 189 K/mcL (140-400); Red Blood Count 2.93 M/mcL (3.82-4.97); Red Cell Distribution Width 14.2 % (11.5-14.5); White Blood Count 6.2 K/mcL (4.3-11.1)
[2021-01-01 05:19] LABS: Calcium 7.4 mg/dL (8.6-10.3); Potassium 4.6 mEq/L (3.5-5.1)
[2021-01-01] MEDS: Insulin LISPRO 300 UNITS/3 ML VIAL SUBQ SCH ×3 (07:52→17:17)
[2021-01-01] MEDS: Sennosides/Docusate Sodium TABLET PO SCH (08:08)
[2021-01-01] MEDS: Topiramate 25 MG TABLET PO SCH (08:08)
[2021-01-01] MEDS: Aspirin 81 MG TAB.CHEW PO SCH (08:08)
[2021-01-01] MEDS: Simethicone 80 MG TAB.CHEW PO PRN (08:08)
[2021-01-01] MEDS: cephALEXin 500 MG CAPSULE PO SCH (08:08)
[2021-01-01] MEDS: Pantoprazole 40 MG VIAL IVP SCH (08:09)
[2021-01-01] MEDS ORDERED: Iron Sucrose Complex 200 MG in 0.9 % Sodium Chloride 100 ML IVPB SCH (09:00)
[2021-01-01] MEDS: Budesonide/Formoterol 80/4.5 1 PUFF INH IH SCH ×2 (09:03→20:11)
[2021-01-01 10:59] LABS: IFE Reflexed IFE Done; Immunoglobulin A 213 mg/dL (68-408); Immunoglobulin G 468 mg/dL (768-1632); Immunoglobulin M < 10 mg/dL (35-263)
[2021-01-01] MEDS ORDERED: Cyanocobalamin (B-12) 1,000 MCG/ML VIAL SQ ONE (11:06)
[2021-01-01] MEDS: 0.9 % Sodium Chloride 1,000 ML IVC SCH (12:16)
[2021-01-01 17:22] VITALS: BP 143/85
[2021-01-01 20:57] VITALS: PULSE 94; TEMP 98.1; O2SAT 99
== END 2021-01-01 21:20 | disposition home or self-care (01) | DRG 720 ==
LOC: 2NNU → SUATTDRO 21:10 → CDU 12-30 15:30
PROVIDERS: ADMIT Internal Medicine; ATTEND Internal Medicine

== ENCOUNTER 2021-07-04 20:17 | Inpatient (IN) ==
[2021-07-04] MEDS ORDERED: 0.9 % Sodium Chloride 1,000 ML IVC ONE (20:26)
[2021-07-04 20:41] LABS: Basophils # 0.1 K/mcL (0.0-0.2); Basophils % 1.1 %; Eosinophils # 0.2 K/mcL (0.0-0.6); Eosinophils % 1.3 %; Hematocrit 42.2 % (35.3-44.9); Hemoglobin 12.3 g/dL (11.5-15.4); Immature Granulocytes % 7.4 % (0-4); Lymphocytes # 1.9 K/mcL (0.6-4.6); Lymphocytes % 16.4 %; Mean Corpuscular HGB Conc 29.1 g/dL (31.6-35.5); Mean Corpuscular Hemoglobin 26.1 pg (28.0-33.3); Mean Corpuscular Volume 89.4 fL (83.0-100.0); Mean Platelet Volume 11.4 fL (9.4-12.4); Monocytes # 0.5 K/mcL (0.0-1.3); Nucleated Red Blood Cells 0.2 /100 WBC (0); Platelet Count 234 K/mcL (140-400); Red Blood Count 4.72 M/mcL (3.82-4.97); Red Cell Distribution Width 15.4 % (11.5-14.5); Segmented Neutrophils % 69.8 %; White Blood Count 11.4 K/mcL (4.3-11.1)
[2021-07-04 20:44] LABS: ABG Base Excess -9 mEq/L (-2 to 3); ABG HCO3 19 mEq/L (21-27); ABG Oxygen Saturation 100 % (95-98); ABG PCO2 47 mmHg (35-45); ABG PH 7.22 pH Units (7.32-7.45); ABG PO2 457 mmHg (85-104); ABG TCO2 21 mEq/L (20-26); Blood Gas Modality ASSIST CONTROL; Blood Gas VT 450 cc
[2021-07-04 20:52] LABS: INR 1.1; Prothrombin Time 12.1 Seconds (9.4-12.1)
[2021-07-04 20:55] LABS: Activated Partial Thrombo Time 33.1 Seconds (26.0-36.0)
[2021-07-04 21:03] LABS: Alanine Aminotransferase 11 Units/L (7-52); Albumin 3.8 g/dL (3.5-5.7); Albumin/Globulin Ratio 1.3 (1.1-2.2); Alkaline Phosphatase 94 Units/L (34-104); Aspartate Amino Transferase 14 Units/L (13-39); BUN/Creatinine Ratio 20 (6-26); Bilirubin,Indirect 0.3 mg/dL (0.0-1.0); Bilirubin,Total 0.3 mg/dL (0.3-1.0); Blood Urea Nitrogen 39 mg/dL (8-23); Calcium 8.1 mg/dL (8.6-10.3); Carbon Dioxide 18 mEq/L (23-29); Chloride 102 mEq/L (98-107); Ethanol < 10 mg/dL (Less than 10); Globulin 2.9 g/dL (2.4-3.5); Glucose 250 mg/dL (70-105); Osmolality,Calculated 300 (280-300); Potassium 5.4 mEq/L (3.5-5.1); Sodium 136 mEq/L (136-145); Total Protein 6.7 g/dL (6.4-8.9); Troponin I < 0.03 ng/mL (< 0.04); eGFR For African Americans 31 (> 60); eGFR For Non-African Americans 26 (> 60)
[2021-07-04 21:53] LABS: Bacteria,Urine Few per hpf (None-Few); Bilirubin,Urine Negative (Negative); Blood,Urine Small (Negative); Clarity,Urine Ex.Turbid (Clear); Color,Urine Yellow (Yellow); Glucose,Urine (UA) Normal (Normal); Ketones,Urine Negative (Negative); Leukocyte Esterase,Urine Large (Negative); Mucus,Urine Few per lpf (None-Few); Nitrite,Urine Negative (Negative); Protein,Urine 100 mg/dL (Neg-Trace); RBC,Urine 30-50 per hpf (0-3); Specific Gravity,Urine 1.017 (1.010-1.025); Squamous Epithelial Cell,Urine Moderate per hpf (None-Few); Urobilinogen,Urine Normal (Normal); WBC,Urine TNTC per hpf (0-3)
[2021-07-04 22:09] LABS: Amphetamine Screen,Urine Negative ng/mL (Cutoff=1000); Barbiturate Screen,Urine Negative ng/mL (Cutoff=200); Benzodiazepines Screen,Urine Positive ng/mL (Cutoff=200); Cannabinoid Screen,Urine Negative ng/mL (Cutoff = 50); Cocaine Screen,Urine Negative ng/mL (Cutoff= 300); Opiate Screen,Urine Negative ng/mL (Cutoff=300); Phencyclidine Screen,Urine Negative ng/mL (Cutoff=25)
[2021-07-04] MEDS ORDERED: SODIUM ZIRCONIUM CYCLOSILICATE 5 GM POWD.PACK PO ONE (23:45)
[2021-07-05 00:06] LABS: Influenza A PCR Negative (Negative); Influenza B PCR Negative (Negative); Resp. Syncytial Virus PCR Negative (Negative)
[2021-07-05 00:08] LABS: SARS-CoV-2 by PCR (In House) Negative (Negative)
[2021-07-05] MEDS ORDERED: Isovue-370 500 ML BOTTLE IVP ONE (00:25)
[2021-07-05] MEDS ORDERED: cefTRIAXone 1,000 MG in 0.9 % Sodium Chloride Mini Bag 100 ML IVPB SCH (01:00)
[2021-07-05] MEDS ORDERED: *HR* Rocuronium Bromide 50 MG/5 ML VIAL IVP ONE (01:42)
[2021-07-05] MEDS ORDERED: FentaNYL (PF) 1,000 MCG/100 ML IV.SOLN IVC SCH (02:30)
[2021-07-05] MEDS ORDERED: Midazolam HCl 50 MG/100 ML IV.SOLN IVC SCH (02:45)
[2021-07-05] MEDS ORDERED: Naloxone 0.4 MG/ML INJ IVP PRN (04:44)
[2021-07-05] MEDS ORDERED: Calcium Gluconate 1gm/50mL 1 GM/50 ML BAG IVPB ONE (04:46)
[2021-07-05] MEDS ORDERED: *HR* Heparin 5,000 UNIT/ML VIAL IVP ONE (04:46)
[2021-07-05] MEDS ORDERED: *HR* Heparin 5,000 UNIT/ML VIAL IVP PRN ×2 (04:46)
[2021-07-05 04:52] LABS: ABG Base Excess -3 mEq/L (-2 to 3); ABG HCO3 20 mEq/L (21-27); ABG Oxygen Saturation 98 % (95-98); ABG PCO2 30 mmHg (35-45); ABG PH 7.44 pH Units (7.32-7.45); ABG PO2 97 mmHg (85-104); ABG TCO2 21 mEq/L (20-26); Blood Gas VT 420 cc
[2021-07-05] MEDS ORDERED: Artificial Tears SOLN 15 ML BOTTLE BOTH EYES PRN (05:32)
[2021-07-05 05:51] LABS: Hematocrit 46.3 % (35.3-44.9); Hemoglobin 13.6 g/dL (11.5-15.4); Mean Corpuscular HGB Conc 29.4 g/dL (31.6-35.5); Mean Corpuscular Hemoglobin 26.7 pg (28.0-33.3); Mean Platelet Volume 11.7 fL (9.4-12.4); Platelet Count 194 K/mcL (140-400); Red Blood Count 5.09 M/mcL (3.82-4.97); Red Cell Distribution Width 15.5 % (11.5-14.5); White Blood Count 13.9 K/mcL (4.3-11.1)
[2021-07-05 05:57] LABS: Heparin anti-factor XA UFH < 0.04 IU/mL (0.30-0.70); Prothrombin Time 11.3 Seconds (9.4-12.1)
[2021-07-05 06:28] LABS: Calcium 8.1 mg/dL (8.6-10.3); Potassium 4.5 mEq/L (3.5-5.1)
[2021-07-05] MEDS: Heparin 25,000UNIT/250ML 1/2NS 25,000 UNIT/250 ML IV.SOLN IVC SCH (06:55)
[2021-07-05] MEDS: Pantoprazole 40 MG VIAL IVP SCH (07:34)
[2021-07-05] MEDS: Piperacillin/Tazobactam 3.375 GM in 0.9 % Sodium Chloride Mini Bag 100 ML IVPB SCH ×2 (07:34→15:19)
[2021-07-05] MEDS: Artificial Tears SOLN 15 ML BOTTLE BOTH EYES SCH ×2 (07:35→11:52)
[2021-07-05] MEDS: Budesonide/Formoterol 160/4.5 1 PUFF INH IH SCH ×2 (07:37→21:00)
[2021-07-05] MEDS ORDERED: Chlorhexidine Rinse 15 ML MOUTHWASH MM SCH (09:00)
[2021-07-05] MEDS ORDERED: Perflutren Lipid Microsphere 1.3 ML in 0.9 % Sodium Chloride 8.7 ML IVP PRN (13:07)
[2021-07-06] MEDS: Piperacillin/Tazobactam 3.375 GM in 0.9 % Sodium Chloride Mini Bag 100 ML IVPB SCH ×2 (00:12→08:15)
[2021-07-06] MEDS: Heparin 25,000UNIT/250ML 1/2NS 25,000 UNIT/250 ML IV.SOLN IVC SCH ×3 (00:16→15:48)
[2021-07-06 06:09] LABS: Basophils % 0.3 %; Eosinophils % 0.2 %; Hematocrit 41.9 % (35.3-44.9); Hemoglobin 12.5 g/dL (11.5-15.4); Lymphocytes # 1.1 K/mcL (0.6-4.6); Lymphocytes % 12.1 %; Mean Corpuscular HGB Conc 29.8 g/dL (31.6-35.5); Mean Corpuscular Hemoglobin 25.9 pg (28.0-33.3); Mean Corpuscular Volume 86.9 fL (83.0-100.0); Mean Platelet Volume 11.4 fL (9.4-12.4); Monocytes # 0.6 K/mcL (0.0-1.3); Monocytes % 6.3 %; Platelet Count 169 K/mcL (140-400); Red Blood Count 4.82 M/mcL (3.82-4.97); Red Cell Distribution Width 15.9 % (11.5-14.5); Segmented Neutrophils % 80.1 %; White Blood Count 8.7 K/mcL (4.3-11.1)
[2021-07-06 06:38] LABS: Calcium 8.7 mg/dL (8.6-10.3); Phosphorous 4.4 mg/dL (2.7-4.5); Potassium 4.1 mEq/L (3.5-5.1)
[2021-07-06] MEDS: Budesonide/Formoterol 160/4.5 1 PUFF INH IH SCH ×2 (07:37→20:15)
[2021-07-06] MEDS: Pantoprazole 40 MG VIAL IVP SCH (08:16)
[2021-07-06] MEDS ORDERED: *HR* LORazepam 2 MG/ML VIAL IVP PRN (15:28)
[2021-07-06] MEDS ORDERED: Naloxone 0.4 MG/ML INJ IVP PRN (15:28)
[2021-07-06] MEDS ORDERED: *HR* Heparin 5,000 UNIT/ML VIAL IVP PRN ×2 (15:28)
[2021-07-06] MEDS ORDERED: Piperacillin/Tazobactam 3.375 GM in 0.9 % Sodium Chloride Mini Bag 100 ML IVPB SCH (16:00)
[2021-07-06] MEDS: Ondansetron 4 MG/2 ML VIAL IVP PRN (16:17)
[2021-07-06] MEDS ORDERED: Ondansetron 4 MG/2 ML VIAL IVP SCH (18:00)
[2021-07-06] MEDS: allopurinoL 100 MG TABLET PO SCH (20:54)
[2021-07-06] MEDS ORDERED: Budesonide/Formoterol 80/4.5 1 PUFF INH IH SCH (22:00)
[2021-07-07 02:15] LABS: Basophils % 0.5 %; Eosinophils # 0.1 K/mcL (0.0-0.6); Eosinophils % 0.6 %; Hemoglobin 11.3 g/dL (11.5-15.4); Immature Granulocytes % 1.2 % (0-4); Lymphocytes # 1.4 K/mcL (0.6-4.6); Lymphocytes % 16.4 %; Mean Corpuscular HGB Conc 29.7 g/dL (31.6-35.5); Mean Corpuscular Hemoglobin 26.3 pg (28.0-33.3); Mean Corpuscular Volume 88.4 fL (83.0-100.0); Mean Platelet Volume 11.3 fL (9.4-12.4); Monocytes # 0.6 K/mcL (0.0-1.3); Monocytes % 6.7 %; Neutrophils # 6.3 K/mcL (1.6-8.9); Platelet Count 169 K/mcL (140-400); Red Cell Distribution Width 15.9 % (11.5-14.5); Segmented Neutrophils % 74.6 %; White Blood Count 8.4 K/mcL (4.3-11.1)
[2021-07-07 02:42] LABS: Calcium 8.1 mg/dL (8.6-10.3); Potassium 4.3 mEq/L (3.5-5.1)
[2021-07-07] MEDS: Heparin 25,000UNIT/250ML 1/2NS 25,000 UNIT/250 ML IV.SOLN IVC SCH (03:08)
[2021-07-07] MEDS: Budesonide/Formoterol 160/4.5 1 PUFF INH IH SCH ×2 (07:29→20:26)
[2021-07-07] MEDS ORDERED: Pantoprazole 40 MG VIAL IVP SCH (09:00)
[2021-07-07] MEDS: Aspirin 81 MG TAB.CHEW PO SCH (09:43)
[2021-07-07] MEDS: Topiramate 25 MG TABLET PO SCH (09:43)
[2021-07-07] MEDS: allopurinoL 100 MG TABLET PO SCH ×3 (09:43→21:10)
[2021-07-07] MEDS: Ondansetron 4 MG/2 ML VIAL IVP PRN (09:44)
[2021-07-07 16:58] LABS: INR 1.2; Prothrombin Time 13.2 Seconds (9.4-12.1)
[2021-07-07] MEDS ORDERED: Warfarin perPT PO PRN (18:00)
[2021-07-07] MEDS ORDERED: *HR* Warfarin 5 MG TABLET PO ONE (18:00)
[2021-07-07] MEDS: levETIRAcetam 250 MG TABLET PO SCH (21:09)
[2021-07-08] MEDS: Heparin 25,000UNIT/250ML 1/2NS 25,000 UNIT/250 ML IV.SOLN IVC SCH (03:04)
[2021-07-08 03:54] LABS: Basophils % 0.4 %; Eosinophils # 0.1 K/mcL (0.0-0.6); Eosinophils % 1.5 %; Hematocrit 33.2 % (35.3-44.9); Hemoglobin 10.3 g/dL (11.5-15.4); Immature Granulocytes % 1.3 % (0-4); Lymphocytes # 1.6 K/mcL (0.6-4.6); Lymphocytes % 23.8 %; Mean Corpuscular Volume 87.1 fL (83.0-100.0); Mean Platelet Volume 11.8 fL (9.4-12.4); Monocytes # 0.5 K/mcL (0.0-1.3); Neutrophils # 4.4 K/mcL (1.6-8.9); Platelet Count 166 K/mcL (140-400); Red Blood Count 3.81 M/mcL (3.82-4.97); Red Cell Distribution Width 15.6 % (11.5-14.5); White Blood Count 6.7 K/mcL (4.3-11.1)
[2021-07-08 04:54] LABS: Calcium 8.2 mg/dL (8.6-10.3); Potassium 4.2 mEq/L (3.5-5.1)
[2021-07-08] MEDS: Budesonide/Formoterol 160/4.5 1 PUFF INH IH SCH (07:50)
[2021-07-08] MEDS: levETIRAcetam 250 MG TABLET PO SCH (08:13)
[2021-07-08] MEDS: Aspirin 81 MG TAB.CHEW PO SCH (08:13)
[2021-07-08] MEDS: Topiramate 25 MG TABLET PO SCH (08:13)
[2021-07-08] MEDS: allopurinoL 100 MG TABLET PO SCH ×2 (08:13→14:48)
[2021-07-08 11:28] VITALS: BP 123/60; PULSE 86; TEMP 98.1; O2SAT 92
[2021-07-08 11:41] LABS: Heparin anti-factor XA UFH 0.31 IU/mL (0.30-0.70)
[2021-07-08 11:42] LABS: INR 1.2; Prothrombin Time 13.6 Seconds (9.4-12.1)
[2021-07-08] MEDS ORDERED: *HR* Warfarin 5 MG TABLET PO ONE (18:00)
== END 2021-07-08 17:50 | disposition home or self-care (01) | DRG 133 ==
LOC: EMEROOARM 20:17 → ICNU 07-05 00:23 → 3ANU 07-06 22:34
PROVIDERS: ADMIT Internal Medicine; ATTEND Internal Medicine